=== PATIENT | female | born 1975 | race Caucasian/White ===

== ENCOUNTER → 2017-12-24 11:37 | Outpatient (CLI) | payer OTHER, SELFPAY ==
[2017-12-24 14:05] LABS: HIV - WCH Non-Reactive (Nonreactive)
[2017-12-24 15:27] LABS: Chlamydia Trachomatis by PCR Negative (Negative); Neisserai gonorrhoeae by PCR Negative (Negative); Probe Check PASS; Sample Adequacy Control PASS; Specimen Processing Control PASS
[2017-12-25 04:14] LABS: Rapid Plasmin Reagin (RPR) NONREACTIVE (NONREACTIVE)
[2017-12-25 15:38] LABS: HEPATITIS B SURFACE AG Negative (Negative); Hep C Antibodies <0.1 s/co ratio (0.0-0.9)
== END ==
PROVIDERS: Visit Provider Obstetrics & Gynecology
DX: Z11.3 Encounter for screening for infections with a predominantly sexual mode of transmission (principal)
CPT/HCPCS: 36415; 86592; 86703; 86803; 87340; 87491; 87591

== ENCOUNTER → 2018-03-29 15:34 | Outpatient (CLI) | payer OTHER, SELFPAY ==
[2017-07-03 14:14] VITALS: BMI 26.1
[2018-04-01 10:09] LABS: HPV HC, High Risk Negative (Negative)
== END ==
PROVIDERS: Visit Provider Obstetrics & Gynecology
DX: Z12.4 Encounter for screening for malignant neoplasm of cervix (principal)
CPT/HCPCS: 87624; 88175; G0145

== ENCOUNTER → 2018-04-01 13:49 | Outpatient (CLI) | payer OTHER, SELFPAY ==
--- NOTE | 2018-04-01 13:53 | BI_ITS ---
MAMMOGRAPHY - BILATERAL SCREENING REASON FOR EXAM: Female, 42 years old. Routine annual screening examination. PERTINENT HISTORY: Grandmother with breast cancer. Aunt with breast cancer. TECHNIQUE: Digital bilateral breast danielle (3D mammographic acquisition) in the CC and MLO projections. 2-D mediolateral oblique (MLO) and craniocaudad (CC) views of both breasts were obtained. CAD: Full Field Digital Mammography with Computer Added Detection was performed. COMPARISON: Comparison is made with prior study dated March 19, 2017 and March 18, 2016. FINDINGS: Breast Composition: The breasts are heterogeneously dense, which may obscure small masses. There are no dominant masses or suspicious calcifications. No other significant abnormalities are identified. There has been no significant change since the prior study. BI/SCREENING MAMM (CAD), BILAT IMPRESSION: Stable bilateral screening mammogram. Yearly follow-up mammogram recommended. (A) ASSESSMENT CATEGORY: BIRADS Category 1: Negative. A letter regarding these results will be sent to the patient by the facility within 30 days. Approximately 10% of breast cancers are not detected by mammography. A normal mammogram should not delay biopsy of a clinically suspicious abnormality. [id number] Electronically Signed: Loyd Carrero MD at 14:52 EST , Service support ,
== END ==
PROVIDERS: Referring Provider Obstetrics & Gynecology; Visit Provider Obstetrics & Gynecology
DX: Z12.31 Encounter for screening mammogram for malignant neoplasm of breast (principal)
CPT/HCPCS: 77063; 77067

== ENCOUNTER → 2018-05-24 10:38 | Outpatient (CLI) | payer OTHER, SELFPAY ==
--- NOTE | 2018-05-24 10:57 | CT_ITS ---
STUDY: CT ABDOMEN AND PELVIS WITH CONTRAST REASON FOR EXAM: Female, 43 years old. Endometriosis. Excessive uterine bleeding. RADIATION DOSAGE (If Supplied By Facility): CTDIvol = ( 9.22 ) mGy, DLP = ( 580.28 ) mGycm TECHNIQUE: Transaxial images were obtained from the dome of the diaphragm to the symphysis pubis with oral contrast. Isovue 300 100 IV/Oral was administered. Sagittal and coronal images were reconstructed. Individualized dose optimization techniques were used for this CT. COMPARISON: Comparison is made with prior study dated April 24, 2010. FINDINGS: The visualized lung bases are unremarkable. The visualized portions of the heart are within normal limits. Normal liver. Normal gallbladder and extrahepatic biliary system. Normal spleen. Normal pancreas. Normal bilateral adrenal glands. Normal right kidney. Normal left kidney. Normal visualized stomach. Normal small intestine. Normal colon. The appendix is visualized and appears normal. Normal abdominal aorta. Normal inferior vena cava. Normal retroperitoneum. Normal urinary bladder. There is a 3.4 cm by 2.2 cm cyst in the right ovary. Inhomogeneous appearance of the uterus with endometrial thickening. There is prominence of the cervical portion of the uterus suggestive of fibroid change. Normal abdominal wall. There are mild degenerative changes of the visualized lumbar spine. CT/Abdomen/Pelvis WITH Contrast IMPRESSION: Fibroid uterus with thickening of the endometrium. Right ovarian cyst. Electronically Signed: Loyd Carrero, at 13:41 EDT , Service support ,
== END ==
PROVIDERS: Family Provider Obstetrics & Gynecology; PCP Obstetrics & Gynecology; Referring Provider Obstetrics & Gynecology; Visit Provider Obstetrics & Gynecology
DX: N80.3 Endometriosis of pelvic peritoneum (principal); N93.9 Abnormal uterine and vaginal bleeding, unspecified; R10.84 Generalized abdominal pain
CPT/HCPCS: 74177; Q9967

== ENCOUNTER 2018-06-09 07:31 | Observation (INO) | payer OTHER, SELFPAY ==
--- NOTE | 2018-06-01 13:21 | PCM.HPOB.BLA ---
History and Physical Date of Admission: 06/09/18 Surgical History and Physical Date: 06/01/2018 Name: YESSICA PAIZ Age: 43 Date of : 1975 Yessica Paiz, a 43 year old female 0 0 1 0 0, presents for [facility] on June 09, 2018 at 7:30. 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 In the past few months, low back and low pelvic pain has returned in conjunction with spotting. She is wondering if Endometriosis is again, causing this pain? Fulguration EM implants when Dannielle done. Hx HSV, no outbreaks in the past year. On daily suppression therapy w/Valtrex. Continues Wellbutrin and Xanax for Anxiety/Depression. She would like RF's all 3 meds for this year. Nonsmoker. Not sexually active. Hx Lap/BS. sanjeev Yessica is here to discuss having a Hysterectomy for Pelvic Pain and Menorrhagia. Aygestin given 04/27/18 for Menorrhagia. This helped. Heavy bleeding onset again 05/18, still bleeding changing large tampon q hr to hr and half. Very painful. Taking Ketorolac 10 mg every 8 hrs and sooner sometimes, so she can function on her job. sanjeev AUB which began Apr 2016. Yessica claims it started sudden and has been present 1-2 months. It occurs intermittantly. It is located in the vaginal. Yessica characterizes it to be to the back. Severity is Worsening cramping It is aggravated by none. It is relieved by none. Associated signs and symptoms are cramping. Additional comments are: Patient had ablation done 01/23/2016. MEDICATIONS HISTORY: Current medications prescribed by our practice are: 1. Aygestin 5 mg tablet, one tab PO three times daily 2. ketorolac 10 mg tablet, one tab PO q 8 hours as directed 3. Valtrex 500 mg tablet, one tab PO daily 4. Wellbutrin XL 150 mg 24 hr tablet, extended release, One tablet by mouth twice daily 5. Xanax 0.5 mg tablet, one tablet q 8 hours prn Patient is also takin. cyclobenzaprine 10 mg tablet, One tablet by mouth once daily 2. lisinopril 10 mg-hydrochlorothiazide 12.5 mg tablet, One tablet by mouth once daily ALLERGIES: NKDA Infections - Chicken pox and Genital Herpes Illnesses - Endometriosis Accidents - no injuries of consequence Hospitalizations - see surgery Depression / Anxiety; Review of Systems: GENERAL - Denies fever, or chills SKIN - Denies skin changes EYES - Denies visual changes EARS - Denies difficulty hearing NOSE - Denies nasal congestion or bleeding MOUTH - Denies sore throat or difficulty swallowing NECK - Denies pain or swelling RESPIRATORY - Denies shortness of breath or wheezing CARDIOVASCULAR - Denies palpitations or chest pain GASTROINTESTINAL - Denies nausea, vomiting, diarrhea, constipation GENITOURINARY - pelvic pain, menorrhagia MUSCULOSKELETAL - Denies joint or muscle pain NEUROLOGICAL - Denies localized numbness or weakness PSYCHIATRIC - Anxiety see meds ENDOCRINE - Denies heat or cold intolerance, weight loss or gain HEMATO-IMMUNOLOGIC - Denies excesive bleeding with cuts SOCIAL HISTORY: Alcohol Use - socially Smoking - denies use Diet - balanced Diet Lifestyle - Exercise - regular Seat Belt Use - always Employer - [employer] [place] [employer] Illicit Drug Use - denies use of street drugs Sexual Activity - - Hours Worked - 36 Control - Dannielle 01/23/16 FAMILY HISTORY: Maternal Grandmother: Breast cancer. Paternal Grandmother: Heart Disease. Paternal Grandfather: Heart Disease. Maternal Aunt: Breast Ca. MENSTRUAL HISTORY: LMP Known?- Dannielle, 01/23/16Amount/Duration - excess amount, Regularity - Irregular, Frequency - variable days, LMP - 05/18/18, Age Onset Menarche - 14 PAST PREGNANCIES: Total Pregnancies - 1; Full Term Pregnancies - 0; Premature - 0; Abortions, Induced - 0; Abortions, Spontaneous - 1; Ectopics - 0; Multiple Births - 0; Living Children - 0 SURGICAL HISTORY: 1. 08/04/2013 cervical fusion ; - 2. tonsilectomy 2001 ; - 3. 01/23/2016 Lap Bilateral salpingectomy, fulguration of endometriosis, hysteroscopy, D and C, Dannielle ablation ; Dr Joseph Madden - PHYSICAL EXAM BP- 130/78 Sitting, Right arm, regular cuff Weight- 146.37942 lbs Height- 65 inch BMI:24.45 CONSTITUTIONAL - NAD, well nourished, and well developed SKIN - No rash, lesions, or ulcers HEENT - Normocephalic, PERRLA, EOMI NECK - No nodes, no nuchal rigidity and thyroid normal size and texture LUNGS - CTA x2 without wheezes, crackles or rales CARDIAC - Regular rate and rhythm without rubs, murmurs, or gallops ABDOMEN - Without hepatosplenomegaly, distention, masses, rebound, or guarding; normal bowel sounds; no hernias EXTREMITIES - No edema or calf tenderness NEUROLOGICAL - Cranial nerves II-XII grossly intact PSYCHIATRIC - A and O to time, place, person, mood and affect External Genitial Vagina - non-tender without lesions Urethra/Urethral Meatus - non-tender Bladder - non-tender Vagina - vaginal armendariz are pink and moist without loss of rugae and no evidence of atropy Cervix - without cervical motion tenderness and has normal size and features without evident lesions Uterus - 5-6 cm in size, mobile and nontender Adnexa - tender right adnexal area ASSESSMENT/PLAN: 1. Endometriosis Of Pelvic Peritoneum Having increasing pain and now with some heavy painful periods despite endometrial ablation Options presented and given prior ablation would recommend LAVH US today by me with relatively thin endometrial lining at 5mm and right ovarian cyst Procedures, risks, and expectations discussed Followup for preoperative appointment The visit was approximately 30 minutes in length with most of the time spent in discussion and counseling.
--- NOTE | 2018-06-01 13:25 | HP.PCM_ITS ---
History and Physical Date of Admission: 06/09/18 Surgical History and Physical Date: 06/01/2018 Name: YESSICA PAIZ Age: 43 Date of : 1975 Yessica Paiz, a 43 year old female 0 0 1 0 0, presents for [facility] on June 09, 2018 at 7:30. 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 In the past few months, low back and low pelvic pain has returned in conjunction with spotting. She is wondering if Endometriosis is again, causing this pain? Fulguration EM implants when Dannielle done. Hx HSV, no outbreaks in the past year. On daily suppression therapy w/Valtrex. Continues Wellbutrin and Xanax for Anxiety/Depression. She would like RF's all 3 meds for this year. Nonsmoker. Not sexually active. Hx Lap/BS. sanjeev Yessica is here to discuss having a Hysterectomy for Pelvic Pain and Menorrhagia. Aygestin given 04/27/18 for Menorrhagia. This helped. Heavy bleeding onset again 05/18, still bleeding changing large tampon q hr to hr and half. Very painful. Taking Ketorolac 10 mg every 8 hrs and sooner sometimes, so she can function on her job. sanjeev AUB which began Apr 2016. Yessica claims it started sudden and has been present 1- 2 months. It occurs intermittantly. It is located in the vaginal. Yessica characterizes it to be to the back. Severity is Worsening cramping It is aggravated by none. It is relieved by none. Associated signs and symptoms are cramping. Additional comments are: Patient had ablation done 01/23/2016. MEDICATIONS HISTORY: Current medications prescribed by our practice are: 1. Aygestin 5 mg tablet, one tab PO three times daily 2. ketorolac 10 mg tablet, one tab PO q 8 hours as directed 3. Valtrex 500 mg tablet, one tab PO daily 4. Wellbutrin XL 150 mg 24 hr tablet, extended release, One tablet by mouth twice daily 5. Xanax 0.5 mg tablet, one tablet q 8 hours prn Patient is also takin. cyclobenzaprine 10 mg tablet, One tablet by mouth once daily 2. lisinopril 10 mg-hydrochlorothiazide 12.5 mg tablet, One tablet by mouth once daily ALLERGIES: NKDA Infections - Chicken pox and Genital Herpes Illnesses - Endometriosis Accidents - no injuries of consequence Hospitalizations - see surgery Depression / Anxiety; Review of Systems: GENERAL - Denies fever, or chills SKIN - Denies skin changes EYES - Denies visual changes EARS - Denies difficulty hearing NOSE - Denies nasal congestion or bleeding MOUTH - Denies sore throat or difficulty swallowing NECK - Denies pain or swelling RESPIRATORY - Denies shortness of breath or wheezing CARDIOVASCULAR - Denies palpitations or chest pain GASTROINTESTINAL - Denies nausea, vomiting, diarrhea, constipation GENITOURINARY - pelvic pain, menorrhagia MUSCULOSKELETAL - Denies joint or muscle pain NEUROLOGICAL - Denies localized numbness or weakness PSYCHIATRIC - Anxiety see meds ENDOCRINE - Denies heat or cold intolerance, weight loss or gain HEMATO-IMMUNOLOGIC - Denies excesive bleeding with cuts SOCIAL HISTORY: Alcohol Use - socially Smoking - denies use Diet - balanced Diet Lifestyle - Exercise - regular Seat Belt Use - always Employer - [employer] Job Description - [employer] Illicit Drug Use - denies use of street drugs Sexual Activity - - Hours Worked - 36 Control - Dannielle 01/23/16 FAMILY HISTORY: Maternal Grandmother: Breast cancer. Paternal Grandmother: Heart Disease. Paternal Grandfather: Heart Disease. Maternal Aunt: Breast Ca. MENSTRUAL HISTORY: LMP Known?- Dannielle, 01/23/16Amount/Duration - excess amount, Regularity - Irregular, Frequency - variable days, LMP - 05/18/18, Age Onset Menarche - 14 PAST PREGNANCIES: Total Pregnancies - 1; Full Term Pregnancies - 0; Premature - 0; Abortions, Induced - 0; Abortions, Spontaneous - 1; Ectopics - 0; Multiple Births - 0; Living Children - 0 SURGICAL HISTORY: 1. 08/04/2013 cervical fusion ; - 2. tonsilectomy 2001 ; - 3. 01/23/2016 Lap Bilateral salpingectomy, fulguration of endometriosis, hysteroscopy, D and C, Dannielle ablation ; Dr Joseph Madden - PHYSICAL EXAM BP- 130/78 Sitting, Right arm, regular cuff Weight- 146.14555 lbs Height- 65 inch BMI:24.45 CONSTITUTIONAL - NAD, well nourished, and well developed SKIN - No rash, lesions, or ulcers HEENT - Normocephalic, PERRLA, EOMI NECK - No nodes, no nuchal rigidity and thyroid normal size and texture LUNGS - CTA x2 without wheezes, crackles or rales CARDIAC - Regular rate and rhythm without rubs, murmurs, or gallops ABDOMEN - Without hepatosplenomegaly, distention, masses, rebound, or guarding; normal bowel sounds; no hernias EXTREMITIES - No edema or calf tenderness NEUROLOGICAL - Cranial nerves II-XII grossly intact PSYCHIATRIC - A and O to time, place, person, mood and affect External Genitial Vagina - non-tender without lesions Urethra/Urethral Meatus - non-tender Bladder - non-tender Vagina - vaginal armendariz are pink and moist without loss of rugae and no evidence of atropy Cervix - without cervical motion tenderness and has normal size and features without evident lesions Uterus - 5-6 cm in size, mobile and nontender Adnexa - tender right adnexal area ASSESSMENT/PLAN: 1. Endometriosis Of Pelvic Peritoneum Having increasing pain and now with some heavy painful periods despite endometrial ablation Options presented and given prior ablation would recommend LAVH US today by me with relatively thin endometrial lining at 5mm and right ovarian cyst Procedures, risks, and expectations discussed Followup for preoperative appointment The visit was approximately 30 minutes in length with most of the time spent in discussion and counseling.
[2018-06-03 12:19] LABS: Hematocrit 40.5 % (37-47); Hemoglobin 13.5 g/dl (12.0-15.0); Mean Corp Hgb Conc 33.3 g/gl (32-36); Mean Corpuscular Hgb 33.3 pg (27.0-32.0); Mean Platelet Vol. 9.3 fl (6.2-12.0); Platelet Count 410 K/mm3 (150-450); RBC Distribution Width CV 12.7 % (11.6-14.6); RBC Distribution Width SD 45.2 fl (35.1-43.9); Red Blood Count 4.05 M/mm3 (4.2-5.4); White Blood Count 8.3 K/mm3 (4.4-11.0)
[2018-06-03 12:30] LABS: Scan Indicated on CBC? Y/N NO
[2018-06-03 12:33] LABS: Prothrombin Time (Protime)PT. 13.1 SECONDS (11.7-14.9)
[2018-06-03 12:34] LABS: Partial Thromboplast Time 24.1 Seconds (24.1-36.2)
[2018-06-03 12:40] LABS: Pregnancy, Serum, hCG Quali. NEGATIVE Negative (0-9 Nonpreg)
[2018-06-09] VITALS (15 sets, daily range): BP systolic 117–138; BP diastolic 73–103; PULSE 71–90; RESP 16–18; TEMP 36.6–37.3; O2SAT 96–100; BMI 24.3; BMI 24.4
[2018-06-09 05:58] LABS: Internal QC Validated? YES +Cl - CLEAR BKGD; Pregnancy, Urine Negative Negative
--- NOTE | 2018-06-09 07:30 | HYST_PTH ---
PATIENT: MARINA PAIZ LOC: [facility]3 U#:[id number] AGE/SX: 43/F ROOM: MS313 RE06/09/[address]: Dr. Joseph Madden MD : 1975 BED: 1 DIS: 06/10/2018 SPEC #: [id number] RECD: 06/09/18 11:49 STATUS: CORY REQ #: [id number] JOSEP: 06/09/18 07:[address]: Joseph Madden DEPT: SURGICAL PATHOLOGY RECD BY: Eladio Carlson ENTERED: 06/09/18 13:30 SP TYPE: HYSTERECT OTHR DR: Dr. Lucia Muir DO Tissues: Uterus, NOS Procedures: Surgery Specimen Level V HEADER OPERATION: Hysterectomy, lap-assisted vaginal, poss. right ovarian cystectomy PRE-OP DIAGNOSIS: Endometriosis of pelvic peritoneum TISSUE SUBMITTED: Uterus MICROSCOPIC DIAGNOSIS Uterus, vaginal hysterectomy: Cervix - chronic inflammation and squamous metaplasia. Endometrium - proliferative endometrium. Myometrium - adenomyosis. ROD:jose 06/10/18 MICROSCOPIC DESCRIPTION Slides are reviewed. GROSS DESCRIPTION Received in fixative is one container labeled with the patient's name and designated uterus. The specimen consists of a hysterectomy specimen consisting of uterus with cervix which weighs 109 gm and measures 9 x 7 x 4 cm. The serosal surface is focally ragged. The ectocervical mucosa is unremarkable. The external os is oval and patulous in contour. The endocervical canal measures 3 cm in length and the endocervical mucosa is jackson, glistening and unremarkable. The endometrial cavity is partially obliterated in the proximal portion and measures 4 cm in length and 0.5 cm in width. The endometrium is jackson, glistening without any mass lesion and measures <0.1 cm in thickness. Sections of the uterine wall reveal a few ill-defined nodular masses mostly in the posterior uterine wall. The anterior uterine wall measures 1.5 cm in thickness and the posterior uterine wall measures up to 2.5 cm in thickness. Folder Machine sections are submitted in eight cassettes as follows: 1 - anterior cervix, 2 - posterior cervix, 3 & 4 - anterior uterine wall, 5-8 - posterior uterine wall including ill-defined nodular masses. / ROD:jose 06/09/18 TC: 5 CPT: 61181
--- NOTE | 2018-06-09 07:39 | DCINST_ITS ---
Discharge Diet: No Restrictions Discharge Activity: Return to Normal Activity, May not drive while taking narcotic pain medications., May Shower Return to work on:: 07/12/18 May resume sexual activity in: 6 weeks Call your doctor if your incision/area has: Continuous Slow Oozing, Sudden Increased Bleeding, Increased Pain/ Swelling, Increased Redness, Foul Smelling Discharge, Swelling at the incision site Call your doctor if you observe: Fever of 101 or Higher, Inability to urinate, Inability to have a bowel movement, Using more than one pad per hour, Shortness of breath, Chest pain, Calf discomfort, Uncontrolled pain Remove Dressing in (days):: 1 Cleanse incision/area with: Soap & Water Allergies/Adverse Reactions: Allergies No Known Allergies Allergy (Verified 06/09/18 06:17) Medications to take at Discharge ALPRAZolam [Xanax] 0.5 mg PO PRN PRN 11/23/15 Cyclobenzaprine [Flexeril] 10 mg PO PRN PRN 11/23/15 Valacyclovir HCl [Valtrex] 500 mg PO DAILY 11/23/15 buPROPion SR [Wellbutrin SR (150mg tablets)] 150 mg PO BID 11/23/15 lisinopril 20 mg-hydrochlorothiazide 25 mg tablet 1 tab PO QDAY #30 tab 07/10/17 amlodipine 5 mg tablet 5 mg PO DAILY #30 tab 06/07/18 Ibuprofen 600 mg PO 4X/DAY #30 tab 06/09/18 Oxycodone [Oxyir] 5 - 10 mg PO Q4H PRN PRN 7 Days #20 tab 06/09/18 The following prescriptions were given: Oxycodone [Oxyir] 5 - 10 mg PO Q4H PRN PRN 7 Days #20 tab PRN Reason: Mod-Severe Pain () Ibuprofen 600 mg PO 4X/DAY #30 tab Primary Care Physician: Lucia Muir DO [Primary Care Provider] - Test Results: Test results from this visit will be discussed in further detail at your follow- up appointment, if applicable. Please Follow Up With: Joseph Madden MD When: one week Proposed Discharge Date: 06/10/18
--- NOTE | 2018-06-09 07:46 | OP.PCM_ITS ---
Report of Operation Date of Procedure: 06/09/18 Pre-Operative Diagnosis: Menorrhagia, irregular bleeding after endometrial ablation Post-Operative Diagnosis: Same Surgery/Procedure Performed:: MICHELLE Description of Surgical Findings:: Normal appearing uterus, cervix, and ovaries. Left ovary scarred to left side of uterus. Fallopian tubes surgically absent. Endometriotic implants noted over dome of bladder, right and left uterosacral ligaments. rectal peritoneum, and right round ligament. high school guidance counselor: Nadia Felix Type of Anesthesia:: General Anesthesiologist: Damion Mcmanus Special Medications: none Specimen's removed: Uterus and cervix Drains: jj Estimated Blood Loss (mL): 25cc Fluids Replaced: 1000cc LR Description of Procedure: Yessica was taken to the OR with IV running. She was given two grams of Cefotetan for surgical prophylaxis. General anesthesia was introduced without complication. She was then prepped and draped in the dorsal lithotomy position. A jj catheter was placed. A weighted speculum was placed in the posterior vagina the cervix identified and grasped with a single toothed tenaculum. A uterine manipulator was then placed. The weighted speculum was removed. Attention was then directed to the abdomen. A 5 mm vertical incision was made in the lower base of the umbilicus. The underlying subcutaneous tissue was then dissected bluntly with a Lisa clamp. The abdominal wall was then elevated and a Veress needle was then placed through the umbilical defect in the abdominal cavity. The abdomen was then inflated with CO2 gas to a pressure of 15 Torr. The Veress needle was then removed. A 5 mm trocar and sleeve was then placed through the umbilical defect. The trocar was removed and replaced with the laparoscope. Findings were as above. Two additional 5mm ports were placed each about 4 cm below the level of the umbilicus and lateral to the inferior epigastric vessels. Hemostasis was excellent after port placement. A thorough survey of the pelvis and abdomen was then performed. Using the Ligasure device the left round ligament was cauterized and cut close to the uterus. The left uteroovarian ligament was cauterized and cut. The left parauterine tissue was then dissected down to the level of the cervix. The anterior and posterior leaves of the Broad ligament were and were dissected down to the cervix. A Bladder flap was then created near the uterocervical junction anteriorly. The left uterine artery was then cauterized and cut. The paracervical tissue on the left was dissected down to the level of the uterosacral ligament. The right side was dissected to the level of the uterosacral ligament in a similar fashion to the left. Hemostasis was excellent. The gas was evaluated from the abdomen and attention was then directed to the vagina. The uterine manipulator was removed. The cervix grasped with a single toothed tenaculum. The vaginal mucosa at the cervicovaginal junction was then injected superficially with a dilute pitressin solution. Using the Bovie cautery the cervicvaginal epithelium was cut in a circumfrential manner. The vaginal mucosa was then pushed superiorly. The cervicovesical peritoneum was then entered sharply with the Peter scissors. The rectovaginal peritoneum was then entered sharply with the Torres scissors. A long weighted speculum was placed into the posterior defect. The uterosacral ligaments on both sides were then grasped with Fredis clamps cut and suture ligated. These sutures were held for incorporation into the vaginal cuff. The remaining pericervical tissue was then grasped on each side with the Fredis clamps cut and suture ligated. The specimen was then removed. The pedicles were inspected and found to be hemostatic. The vaginal cuff was then closed in the midline from anterior to posterior with a single interrupted suture of 0- Vicryl. The cuff angles were closed with the same suture material with incorporation of the respective sides uterosacral ligament ties. The remainder of the cuff was closed with interrupted and figure of eight sutures of 0-Vicryl. All instruments were then removed from the vagina. Attention was redirected to the abdomen. The abdomen was reinflated and the laparoscope replaced. All pelvic pedicles appeared hemostatic. The areas of endometriosis that were not previously removed with the specimen were fulgarated. The lateral laparoscopic ports were then removed with hemostasis assured. Gas was then evacuated from the abdomen and the umbilical port removed. The port site incisions were closed with subcuticular sutures of 4-0 Monocryl. Sponge, needle, instrument and lap counts were correct. She was reversed from anesthesia and taken to the recovery room in stable condition. Grafts/Implants Used: none - Complications none - Admit VTE Documentation VTE Present on Admission: No VTE Mechan Device Prophylaxis: SCD's VTE Pharm Prophylaxis ordered?: No
[2018-06-09] MEDS: Vasopressin 20 UNITS/ML Vial (08:48)
[2018-06-09] MEDS: Bupivacaine 0.25% 30 ML Vial (09:13)
[2018-06-09] MEDS: Ketorolac 30 MG/ML Syringe IV ×3 (10:19→23:18)
[2018-06-09] MEDS: Lactated Ringers 1,000 ML 125 ML IV ×2 (11:45→18:18)
[2018-06-09] MEDS: oxyCODONE 5 MG Tablet PO ×2 (12:59→20:08)
[2018-06-09] MEDS: Cefazolin 1 GM/50 ML BAG IV ×2 (14:19→23:12)
[2018-06-09] MEDS: buPROPion (SR) 150 MG Tablet.SA PO ×2 (14:19→23:12)
[2018-06-09] MEDS: amLODIPine 5 MG Tablet PO (14:19)
[2018-06-09] MEDS: HYDROmorphone 1 MG/ML Syringe IV (14:27)
[2018-06-10] MEDS: oxyCODONE 5 MG Tablet PO ×2 (01:44→08:23)
[2018-06-10 01:49] VITALS: BP 120/75; PULSE 79; RESP 18; TEMP 36.7; O2SAT 97
[2018-06-10] MEDS: HYDROmorphone 1 MG/ML Syringe IV (04:17)
[2018-06-10 05:36] LABS: Hemoglobin 12.6 g/dl (12.0-15.0); Mean Corp Hgb Conc 33.2 g/gl (32-36); Mean Corpuscular Hgb 33.7 pg (27.0-32.0); Mean Corpuscular Volume 101.6 fL (81-99); Platelet Count 306 K/mm3 (150-450); RBC Distribution Width CV 12.2 % (11.6-14.6); RBC Distribution Width SD 44.6 fl (35.1-43.9); Red Blood Count 3.74 M/mm3 (4.2-5.4); White Blood Count 9.8 K/mm3 (4.4-11.0)
[2018-06-10 05:38] LABS: Scan Indicated on CBC? Y/N NO
[2018-06-10] MEDS: Ketorolac 30 MG/ML Syringe IV (06:24)
--- NOTE | 2018-06-10 08:00 | PCM.PROGNOTE ---
Subjective: Some abdominal soreness but doing well with toradol mostly. Tolerating PO. Has not voided yet. Objective: Afeb VSS Hgb stable. Urine output good. - Physical Exam General: Alert, Oriented x3, Cooperative, No apparent distress Lungs: Clear to auscultation, Normal air movement Cardiovascular: Regular rate, Regular Rhythm Abdomen: Soft, Non Tender, Non-Distended, - - Incision dressing dry, no erythema Extremities: No edema Skin: No rashes Neurological: Neuro grossly intact Psych/Mental Status: Normal Affect Comment: Scant vaginal bleeding Vital Signs Temp Pulse Resp BP Pulse Ox 98.0 F 79 18 120/75 97 06/10/18 01:49 06/10/18 01:49 06/10/18 01:49 06/10/18 01:49 06/10/18 01:49 Oxygen Delivery Method Room Air Weight: 146 lb 9.718 oz Body Mass Index (BMI) 24.4 Intake and Output for Last 24 Hours 06/08/18 06/09/18 06/10/18 23:59 23:59 23:59 Intake Total 1458 / 1458 2950 / 2950 Output Total 900 / 900 4000 / 4000 Balance 558 / 558 -1050 / -1050 Laboratory Tests Past 24 Hrs 06/10/18 05:20 WBC 9.8 RBC 3.74 L Hgb 12.6 Hct 38.0 MCV 101.6 H MCH 33.7 H MCHC 33.2 RDW 12.2 RDW Differential 44.6 H Plt Count 306 MPV 9.0 Medical Necessity - Tobacco Use Smoking Status: Never smoker Assessment/Plan All Active Problems (Last Reviewed 07/03/17 @ 14:29 by Morgan Cadet MD) Request for sterilization (Acute) Doing well on POD#1 s/p LAVH. Cleared for discharge home today. Discharge instructions and warnings given.
--- NOTE | 2018-06-10 08:02 | PCM.DC.SUM ---
Discharge Date and Diagnosis Date of Admission: 06/09/18 Date of Discharge: 06/10/18 - Primary Discharge Diagnosis S/P LAVH - Secondary Discharge Diagnosis Chronic Problems (Last Reviewed 07/03/17 @ 14:29 by Morgan Cadet MD) GERD (gastroesophageal reflux disease) (Chronic) Hypertension (Chronic) Dysmenorrhea (Chronic) Menorrhagia with regular cycle (Chronic) Hospital Course and Treatment Operations: - - LAVH, fulgaration of endometriosis Summary of Care Provided: The patient is a 43 year old F [admitted for LAVH which was performed without complication. Post operative course unremarkable. Discharged home on po day 1.] - Physical Exam Vital Signs Temp Pulse Resp BP Pulse Ox 98.0 F 79 18 120/75 97 06/10/18 01:49 06/10/18 01:49 06/10/18 01:49 06/10/18 01:49 06/10/18 01:49 Oxygen Delivery Method Room Air Weight: 146 lb 9.718 oz Body Mass Index (BMI) 24.4 Intake and Output for Last 24 Hours 06/08/18 06/09/18 06/10/18 23:59 23:59 23:59 Intake Total 1458 / 1458 2950 / 2950 Output Total 900 / 900 4000 / 4000 Balance 558 / 558 -1050 / -1050 Laboratory Tests Past 24 Hrs 06/10/18 05:20 WBC 9.8 RBC 3.74 L Hgb 12.6 Hct 38.0 MCV 101.6 H MCH 33.7 H MCHC 33.2 RDW 12.2 RDW Differential 44.6 H Plt Count 306 MPV 9.0 Discharge Diet: No Restrictions Discharge Activity: Return to Normal Activity, May not drive while taking narcotic pain medications., May Shower Return to work on:: 07/12/18 May shower in (days): 1 May resume sexual activity in: 6 weeks Call your doctor if your incision/area has: Continuous Slow Oozing, Sudden Increased Bleeding, Increased Pain/ Swelling, Increased Redness, Foul Smelling Discharge, Swelling at the incision site Call your doctor if you observe: Fever of 101 or Higher, Inability to urinate, Inability to have a bowel movement, Using more than one pad per hour, Shortness of breath, Chest pain, Calf discomfort, Uncontrolled pain Remove Dressing in (days):: 1 Cleanse incision/area with: Soap & Water Home Medications: Medications to take at Discharge ALPRAZolam [Xanax] 0.5 mg PO PRN PRN 11/23/15 Cyclobenzaprine [Flexeril] 10 mg PO PRN PRN 11/23/15 Valacyclovir HCl [Valtrex] 500 mg PO DAILY 11/23/15 buPROPion SR [Wellbutrin SR (150mg tablets)] 150 mg PO BID 11/23/15 lisinopril 20 mg-hydrochlorothiazide 25 mg tablet 1 tab PO QDAY #30 tab 07/10/17 amlodipine 5 mg tablet 5 mg PO DAILY #30 tab 06/07/18 Ibuprofen 600 mg PO 4X/DAY #30 tab 06/09/18 Oxycodone [Oxyir] 5 - 10 mg PO Q4H PRN PRN 7 Days #20 tab 06/09/18 Following Prescrptions Were Given to Patient: Oxycodone [Oxyir] 5 - 10 mg PO Q4H PRN PRN 7 Days #20 tab PRN Reason: Mod-Severe Pain () Ibuprofen 600 mg PO 4X/DAY #30 tab Primary Care Physician: Lucia Muir DO [Primary Care Provider] - Please Follow Up With: Joseph Madden MD When: one week Disposition: Home Minutes spent on discharge:: 15 Patient Condition:: Good Medical Necessity - Tobacco Use Smoking Status: Never smoker Meaningful Use Info Meaningful Use Diagnoses (Choose all that apply): None applicable
[2018-06-10 08:12] VITALS: BP 126/83; PULSE 73; RESP 18; TEMP 37.2; O2SAT 98
== END 2018-06-10 08:43 | disposition home or self-care (01) ==
LOC: MS3 09:28
PROVIDERS: Anesthesiology; Admitting Provider Obstetrics & Gynecology; Family Provider Family Medicine; PCP Family Medicine; Referring Provider Obstetrics & Gynecology; Visit Provider Obstetrics & Gynecology
PROC: 0UT9FZZ Resection of Uterus, Via Natural or Artificial Opening With Percutaneous Endoscopic Assistance (ICD-10-PCS; CPT 58550; principal; 2018-06-09 07:05)
DX: N80.3 Endometriosis of pelvic peritoneum (principal); B00.9 Herpesviral infection, unspecified; F41.9 Anxiety disorder, unspecified; F32.9 Major depressive disorder, single episode, unspecified; K21.9 Gastro-esophageal reflux disease without esophagitis; I10 Essential (primary) hypertension; Z79.899 Other long term (current) drug therapy
CPT/HCPCS: 00940; 58550; 36415; 81025; 84703; 85027; 85610; 85730; 86850; 86900; 88307; 96361; 96365; 96366; 96375; 96376; 99218; J7120; G0378; G0379; J2405

== ENCOUNTER → 2018-06-29 | Outpatient (CLI) | payer OTHER, SELFPAY ==
[2018-06-09 12:09] VITALS: BMI 24.4
== END | disposition home or self-care (01) ==
LOC: LABSPEC 13:43
PROVIDERS: Family Provider Family Medicine; PCP Family Medicine; Referring Provider Obstetrics & Gynecology; Visit Provider Obstetrics & Gynecology
DX: R30.0 Dysuria (principal)
CPT/HCPCS: 87086

== ENCOUNTER → 2019-04-07 15:42 | Outpatient (CLI) | payer OTHER, SELFPAY ==
[2018-06-09 12:09] VITALS: BMI 24.4
== END ==
PROVIDERS: PCP Family Medicine; Visit Provider Family Medicine
DX: Z00.00 Encounter for general adult medical examination without abnormal findings (principal)

== ENCOUNTER → 2019-04-07 15:52 | Outpatient (CLI) | payer OTHER, SELFPAY ==
[2018-06-09 12:09] VITALS: BMI 24.4
--- NOTE | 2019-04-07 15:55 | BI_ITS ---
MAMMOGRAPHY - BILATERAL SCREENING 3-D TOMOSYNTHESIS REASON FOR EXAM: Female, 43 years old. Routine screening PERTINENT HISTORY: Grandmother and aunt with breast cancer.. TECHNIQUE: 2-D mammograms and 3-D Tomosynthesis of the breast (s) were performed. CAD was performed. COMPARISON: 04/01/2018 FINDINGS: The breast composition is heterogeneously dense that can obscure small breast masses. Scattered benign calcifications are seen. No dense spiculated masses or suspicious microcalcifications are identified. No architectural distortion is identified. There is no skin thickening or retraction. There has been no significant change since the prior study. BI/SCREEN MAMM (CAD) W/ALLEN BILAT IMPRESSION: No mammographic signs of malignancy. Routine yearly mammograms recommended. ASSESSMENT CATEGORY: BIRADS Category 2: Benign. A letter regarding these results will be sent to the patient by the facility within 30 days. FOLLOW UP RECOMMENDATION: Yearly follow up mammogram recommended. (A) Approximately 10% of breast cancers are not detected by mammography. A normal mammogram should not delay biopsy of a clinically suspicious abnormality. Electronically Signed: Chandana Medrano MD at 12:57 EST , Service support ,
== END ==
LOC: OPBI 15:53
PROVIDERS: PCP Family Medicine; Referring Provider Family Medicine; Visit Provider Family Medicine
DX: Z12.31 Encounter for screening mammogram for malignant neoplasm of breast (principal); Z80.3 Family history of malignant neoplasm of breast
CPT/HCPCS: 77063; 77067

== ENCOUNTER → 2019-10-28 09:22 | Outpatient (CLI) | payer OTHER, SELFPAY ==
[2018-06-09 12:09] VITALS: BMI 24.4
--- NOTE | 2019-10-28 09:25 | RAD_ITS ---
STUDY: X-RAY - RIGHT FOOT CLINICAL: Female, 44 years old. ankle/foot sprain several weeks ago, pain lateral TECHNIQUE: 3 view(s) of the foot. COMPARISON: None. FINDINGS: Normal talus, calcaneus, and tarsal bones. Normal visualized subtalar, talonavicular, calcaneocuboid, tarsal and tarsometatarsal articulations. Well-defined ossific densities are noted medial to the 5th metatarsal head consistent with sesamoid bones. Metatarsal bones are unremarkable. Normal metatarsophalangeal joint of the great toe. Normal tibial and fibular sesamoid bones. Normal interphalangeal joint of the great toe. Normal phalanges of the great toe. Normal second through fifth metatarsophalangeal joints. Normal interphalangeal joints and phalanges of the lesser toes. The soft tissue structures are unremarkable. RAD/Foot min 3 Views IMPRESSION: 1. Negative x-rays of the foot. Electronically Signed: Mercy Crain MD at 22:30 EDT Tel , Service support ,
--- NOTE | 2019-10-28 09:25 | RAD_ITS ---
STUDY: X-RAY - RIGHT ANKLE REASON FOR EXAM: Female, 44 years old. ankle/foot sprain several weeks ago, pain lateral TECHNIQUE: 3 view(s) of the ankle. COMPARISON: None. FINDINGS: Normal visualized distal tibia and fibula. Normal medial and lateral malleoli. Normal tibiotalar articulation and ankle mortise. Normal visualized talus and calcaneus. The visualized subtalar, talonavicular, calcaneocuboid and tarsal articulations are normal. The soft tissue structures are unremarkable. RAD/Ankle min 3 Views IMPRESSION: Normal x-ray examination of the ankle. Electronically Signed: Rosendo Carcamo MD at 16:32 EDT Tel , Service support ,
== END ==
PROVIDERS: PCP Family Medicine; Referring Provider Podiatrist; Visit Provider Podiatrist
DX: S93.401A Sprain of unspecified ligament of right ankle, initial encounter (principal); S93.601A Unspecified sprain of right foot, initial encounter; X58.XXXA Exposure to other specified factors, initial encounter; Y93.9 Activity, unspecified; Y92.9 Unspecified place or not applicable; Y99.9 Unspecified external cause status
CPT/HCPCS: 73610; 73630

== ENCOUNTER → 2020-07-25 14:35 | Outpatient (CLI) | payer OTHER, SELFPAY ==
[2018-06-09 12:09] VITALS: BMI 24.4
--- NOTE | 2020-07-25 14:39 | BI_ITS ---
MAMMOGRAPHY - BILATERAL SCREENING REASON FOR EXAM: Female, 45 years old. Routine annual screening examination. PERTINENT HISTORY: Grandmother with breast cancer. Aunt with breast cancer. TECHNIQUE: Digital bilateral breast allen (3D mammographic acquisition) in the CC and MLO projections. 2-D mediolateral oblique (MLO) and craniocaudad (CC) views of both breasts were obtained. CAD: Full Field Digital Mammography with Computer Added Detection was performed. COMPARISON: Comparison is made with prior study dated 04/07/2019 and 04/01/2018. FINDINGS: Breast Composition: The breasts are heterogeneously dense, which may obscure small masses. There are no dominant masses or suspicious calcifications. No other significant abnormalities are identified. There has been no significant change since the prior study. BI/SCRN MAMM (CAD)W/ALLEN BILAT IMPRESSION: Stable bilateral screening mammogram. Yearly follow-up mammogram recommended. (A) ASSESSMENT CATEGORY: BIRADS Category 1: Negative. A letter regarding these results will be sent to the patient by the facility within 30 days. Approximately 10% of breast cancers are not detected by mammography. A normal mammogram should not delay biopsy of a clinically suspicious abnormality. [id number] Electronically Signed: Loyd Carrero MD at 8:23 EDT , Service support ,
== END ==
PROVIDERS: PCP Family Medicine; Referring Provider Family Medicine; Visit Provider Family Medicine
DX: Z12.31 Encounter for screening mammogram for malignant neoplasm of breast (principal)
CPT/HCPCS: 77063; 77067

== ENCOUNTER → 2020-08-31 10:44 | Outpatient (CLI) | payer OTHER, SELFPAY ==
[2018-06-09 12:09] VITALS: BMI 24.4
--- NOTE | 2020-08-31 10:55 | RAD_ITS ---
STUDY: X-RAY - CERVICAL SPINE REASON FOR EXAM: Female, 45 years old. NECK PAIN TECHNIQUE: 7 view(s) of the cervical spine were obtained including oblique views and flexion and extension views.. COMPARISON: Comparison is made with prior examination dated 08/21/2015. FINDINGS: Normal anterior atlantoaxial articulation. Normal odontoid process. There is straightening of the normal cervical lordosis. 2009, the patient is status post anterior fusion and prosthetic disc placement at the C4-C5 and C5-C6 levels. Marked degree of disc space narrowing with spondylosis at the C6-C7 level as compared to prior study. Normal visualized intervertebral neuroforamina. The soft tissue structures are unremarkable. RAD/Cerv Spine Obl/Flex/Ext Comp IMPRESSION: Status post anterior fusion at the C4-C5 and C5-C6 levels. Marked degree of disc space narrowing and spondylosis at the C6-C7 level. This has progressed as compared to prior study. Electronically Signed: Loyd Carrero MD at 15:06 EDT , Service support ,
== END ==
PROVIDERS: PCP Family Medicine; Referring Provider Family Medicine; Visit Provider Family Medicine
DX: M54.2 Cervicalgia (principal); Z98.1 Arthrodesis status
CPT/HCPCS: 72052

== ENCOUNTER 2020-10-15 07:50 | Day surgery (SDC) | payer OTHER, SELFPAY ==
[2018-06-09 12:09] VITALS: BMI 24.4
[2020-10-15 08:23] VITALS: BP 130/99; PULSE 75; RESP 16; TEMP 36.4; O2SAT 96; BMI 26.9
[2020-10-15] MEDS: Lactated Ringers 1,000 ML 100 ML IV (08:29)
--- NOTE | 2020-10-15 09:05 | RAD_ITS ---
STUDY: X-RAY - CERVICAL SPINE REASON FOR EXAM: Female, 45 years old. CERVICAL EPIDURAL INJECTION TECHNIQUE: 2 view(s) of the cervical spine were obtained intraoperatively. COMPARISON: None FINDINGS: Intraoperative images provided for cervical epidural injection. RAD/Spine 1 View Any Level IMPRESSION: Intraoperative imaging provided for cervical epidural injection. Electronically Signed: Loyd Carrero MD at 15:29 EDT , Service support ,
[2020-10-15] MEDS: MethylPREDNISolone Acetate 80 MG/ML Vial (09:15)
--- NOTE | 2020-10-15 11:23 | OP.PCM_ITS ---
Report of Operation Date of Procedure: 10/15/20 Description of Surgical Findings:: PREOPERATIVE DIAGNOSES: Cervical radiculopathy, cervical degenerative disc disease POSTOPERATIVE DIAGNOSES: Cervical radiculopathy, cervical degenerative disc di sease PROCEDURE PERFORMED: Cervical epidural steroid injection, interlaminar at C7-T1 under fluoroscopic guidance. ANESTHESIA: Local. BLOOD LOSS: Minimal. COMPLICATIONS: None. DESCRIPTION OF PROCEDURE: History and physical of today was reviewed. Risks and benefits of the procedure were explained. The patient understood and agreed to proceed. Informed consent was obtained. IV inserted per routine protocol. The patient was taken to the operating room and placed in the prone position with a pillow positioned underneath the chest. The neck area was prepped and draped in a sterile fashion using iodine x3. Under fluoroscopy guidance on an AP view, the C7-T1 interlaminar space was identified. The skin and subcutaneous tissue was anesthetized with approximately 3 mL of 1% lidocaine using a 25-gauge regular needle. Under direct visualization on fluoroscopy, on AP view, using a 20-gauge 2-1/2-inch Tuohy needle, the needle was advanced via the skin. The tip of the needle was maneuvered and directed towards the interlaminar space at C7- T1. Loss of resistance technique was carried to air. Loss of resistance technique was encountered. Once encountered, after negative aspiration for blood and CSF, a total of 1 mL of contrast was injected to confirm correct placement of the needle as well as cephalocaudal spread of the contrast. Confirmation was obtained on AP as well as lateral view. After repeated negative aspiration and confirmation, a total of 3 mL of preservative-free normal saline and 80 mg of Depo-Medrol was injected easily. The needle was then removed intact. The patient experienced no sign or symptoms of intrathecal or intravascular injection. The patient experienced no paresthesia. The procedure was completed without any apparent difficulty or any complications. The patient appeared to tolerate it well. ASSESSMENT AND PLAN: This is a 45-year-old female with cervical radiculopathy, cervical degenerative disc disease, status post cervical epidural steroid injection interlaminar at C7-T1 under fluoroscopic guidance, patient will continue her current medications, patient will follow in approximately 2 weeks for reevaluation.
== END 2020-10-15 09:58 | disposition home or self-care (01) ==
LOC: SDC 07:50 → AC 07:51
PROVIDERS: PCP Family Medicine; Referring Provider Anesthesiology Pain Medicine; Visit Provider Anesthesiology Pain Medicine
PROC: 3E0S3BZ Introduction of Anesthetic Agent into Epidural Space, Percutaneous Approach (ICD-10-PCS; CPT 62320; principal; 2020-10-15 09:15)
DX: M54.12 Radiculopathy, cervical region (principal); M50.323 Other cervical disc degeneration at C6-C7 level; I10 Essential (primary) hypertension; F32.9 Major depressive disorder, single episode, unspecified; F41.9 Anxiety disorder, unspecified; Z79.899 Other long term (current) drug therapy
CPT/HCPCS: 62321; 64490; 72020; J7120

== ENCOUNTER → 2020-10-30 10:23 | Outpatient (CLI) | payer OTHER, SELFPAY ==
--- NOTE | 2020-10-30 11:07 | RAD_ITS ---
INDICATION: BACK PAIN EXAMINATION/TECHNIQUE: X-RAY - XR Spine Thoracic 2 Views COMPARISON: 08/31/2020 FINDINGS: Preserved vertebral body height. No fracture. No spondylolisthesis. Multilevel degenerative endplate changes visualized with anterior osteophyte formation. Degenerative changes visualized in the intervertebral disc spaces. Anterior internal fixation of the cervical spine is visualized. INCLUDED CHEST/ABDOMEN: No acute abnormalities. RAD/Thoracic Spine 2 Views IMPRESSION: Degenerative bone changes. No evidence of thoracic spinal fracture or spondylolisthesis. Electronically Signed: Tadeo Easley MD at 13:35 EDT Tel , Service support ,
== END ==
PROVIDERS: PCP Family Medicine; Referring Provider Nurse Practitioner Family; Visit Provider Nurse Practitioner Family
DX: M54.6 Pain in thoracic spine (principal)
CPT/HCPCS: 72070

== ENCOUNTER 2020-12-03 07:37 | Day surgery (SDC) | payer OTHER, SELFPAY ==
[2020-12-03 08:28] VITALS: BP 126/95; PULSE 81; RESP 16; TEMP 35.9; O2SAT 100; BMI 27.3
[2020-12-03] MEDS: Lactated Ringers 1,000 ML 100 ML IV (08:31)
--- NOTE | 2020-12-03 09:10 | RAD_ITS ---
INDICATION: FACET INJECTIONS T5-T7, BILAT EXAMINATION/TECHNIQUE: X-RAY - XR Spine Thoracic Min 4 Views Total Fluoroscopic Time: 11.5 seconds. Fluoroscopic Images: 4 Floroscopy Dose: 3.06 mGy COMPARISON: 10/30/2020. FINDINGS: 4 spot floroscopic images were obtained intra-operatively demonstrating needles superimposed over the T5-T7 facet joints. No radiologist was present for the procedure, please refer to operative report for details. RAD/Thoracic Spine Min 4 Views IMPRESSION: Please refer to operative report for details. Electronically Signed: Tadeo Easley MD at 13:40 EDT Tel , Service support ,
[2020-12-03] MEDS: MethylPREDNISolone Acetate 80 MG/ML Vial (09:22)
[2020-12-03] MEDS: Bupivacaine 0.25% 30 ML Vial (09:22)
[2020-12-03] MEDS: Lidocaine 1% (5 ml sdv) 5 ML Vial (09:22)
[2020-12-03 09:31] VITALS: BP 109/93; BP 126/95; PULSE 81; RESP 18; TEMP 36.3; O2SAT 93
[2020-12-03 09:40] VITALS: BP 126/95; BP 130/93; PULSE 79; RESP 16; O2SAT 100
[2020-12-03 09:44] VITALS: BP 123/102; BP 126/95; PULSE 75; RESP 16; O2SAT 98
[2020-12-03 09:46] VITALS: BP 115/89; BP 126/95; PULSE 77; RESP 16; TEMP 36.3; O2SAT 97
[2020-12-03 09:55] VITALS: BP 126/95
--- NOTE | 2020-12-03 15:29 | PCM.OPRPT ---
Report of Operation Date of Procedure: 12/03/20 Description of Surgical Findings:: PREOPERATIVE DIAGNOSIS: Thoracic spondylosis, thoracic degenerative disc disease, thoracic facet arthropathy POSTOPERATIVE DIAGNOSIS: Thoracic spondylosis, thoracic degenerative disc disease, thoracic facet arthropathy PROCEDURE PERFORMED: Bilateral thoracic facet steroid injection, T5, T6, T7. ANESTHESIA: MAC. BLOOD LOSS: Minimal. COMPLICATIONS: None. DESCRIPTION OF PROCEDURE: History and physical of today was reviewed. Risks and benefits of the procedure were explained. The patient understood and agreed to proceed. Informed consent was obtained. IV inserted per routine protocol. The patient was taken to the operating room and placed in the prone position with a pillow positioned underneath the chest. The mid back area was prepped and draped in a sterile fashion using iodine x3. Under fluoroscopy guidance on AP view, the T5 through T7 vertebral bodies were visualized. The skin and subcutaneous tissue was anesthetized with approximately 5 mL of 1% lidocaine using a 25-gauge regular needle. Under direct visualization on fluoroscopy, at approximately 15-degree angle, starting on the left T5 ending on the right T5, passing through the T6 and T7 bilaterally, using a 22-gauge 3-1/2-inch spinal needle, the needle was passed through the skin. The tip of the needle was maneuvered and directed towards the epiphyseal junction of each corresponding vertebra. Once the tip of the needle was at the vicinity of the medial branch and in contact with the bone, the needle was pulled approximately 2 mm off the bone. After negative aspiration for blood or CSF and confirmation on AP as well as oblique view and lateral view, a total of 12 mL of preservative-free 0.25% Marcaine with 80 mg of Depo-Medrol was injected in divided doses between those 6 levels. The needles were then removed intact. The patient experienced no sign or symptoms of intrathecal or intravascular injection. The patient experienced no paresthesia. The procedure was completed without any apparent difficulty or any complications. The patient appeared to tolerate it well. ASSESSMENT AND PLAN: This is a 45-year-old female with thoracic spondylosis, thoracic degenerative disc disease, thoracic facet arthropathy status post bilateral thoracic facet steroid injection T5-T7, patient will continue her current medications, patient will follow in approximately 2 weeks for reevaluation.
== END 2020-12-03 10:00 | disposition home or self-care (01) ==
LOC: SDC 07:38 → AC 07:38
PROVIDERS: PCP Family Medicine; Referring Provider Anesthesiology Pain Medicine; Visit Provider Anesthesiology Pain Medicine
PROC: 3E0R3BZ Introduction of Anesthetic Agent into Spinal Canal, Percutaneous Approach (ICD-10-PCS; CPT 62281; principal; 2020-12-03 09:05)
DX: M47.814 Spondylosis without myelopathy or radiculopathy, thoracic region (principal); M51.34 Other intervertebral disc degeneration, thoracic region; M48.02 Spinal stenosis, cervical region; M96.1 Postlaminectomy syndrome, not elsewhere classified; K21.9 Gastro-esophageal reflux disease without esophagitis; Z79.899 Other long term (current) drug therapy
CPT/HCPCS: 01992; 64491; 64490; 72074; J7120

== ENCOUNTER → 2020-12-17 13:52 | Outpatient (CLI) | payer OTHER, SELFPAY ==
[2020-12-17 14:35] LABS: Ferritin 397 ng/mL (8-252)
== END ==
PROVIDERS: PCP Family Medicine; Referring Provider Family Medicine; Visit Provider Family Medicine
DX: D64.9 Anemia, unspecified (principal); Z83.49 Family history of other endocrine, nutritional and metabolic diseases
CPT/HCPCS: 82728; 84466

== ENCOUNTER → 2020-12-26 07:49 | Outpatient (CLI) | payer OTHER, SELFPAY | LOC: LAB.FUTURE 07:50 → LAB 07:51 | PROVIDERS: PCP Family Medicine; Referring Provider Family Medicine; Visit Provider Family Medicine | DX: R79.89 Other specified abnormal findings of blood chemistry (principal); Z83.49 Family history of other endocrine, nutritional and metabolic diseases ==

== ENCOUNTER → 2021-01-07 13:48 | Outpatient (CLI) | payer OTHER, SELFPAY ==
[2021-01-07 15:30] LABS: Progesterone Level 0.41 ng/mL (See Comment)
[2021-01-07 15:33] LABS: Estradiol 110.5 pg/mL; Free T3 2.7 pg/mL (2.18-3.98); T4 Free Direct 0.76 ng/dL (0.76-1.46); Thyroid Stim Hormone (TSH) 1.26 uIU/mL (0.358-3.74)
== END ==
PROVIDERS: PCP Family Medicine; Referring Provider Family Medicine; Visit Provider Family Medicine
DX: E89.41 Symptomatic postprocedural ovarian failure (principal); R53.83 Other fatigue
CPT/HCPCS: 82670; 84144; 84439; 84443; 84481

== ENCOUNTER 2021-01-14 06:52 | Day surgery (SDC) | payer OTHER, SELFPAY ==
[2021-01-14 08:00] VITALS: BP 137/102; PULSE 85; RESP 18; TEMP 36.2; O2SAT 100; BMI 27.8
[2021-01-14] MEDS: Lactated Ringers 1,000 ML 15 ML IV (08:09)
--- NOTE | 2021-01-14 08:35 | RAD_ITS ---
STUDY: X-RAY - CERVICAL SPINE REASON FOR EXAM: Female, 45 years old. BLOCK,CERVICAL EPIDURAL TECHNIQUE: 1 view(s) of the cervical spine were obtained. COMPARISON: None FINDINGS: Intraoperative imaging provided for cervical epidural. RAD/Spine 1 View Any Level IMPRESSION: Intraoperative imaging provided for cervical epidural. Electronically Signed: Loyd Carrero MD at 10:02 EST , Service support ,
[2021-01-14] MEDS: MethylPREDNISolone Acetate 80 MG/ML Vial (08:41)
[2021-01-14 08:53] VITALS: BP 135/91; BP 137/102; PULSE 80; RESP 16; TEMP 36.6; O2SAT 100
--- NOTE | 2021-01-14 12:52 | OP.PCM_ITS ---
Report of Operation Date of Procedure: 01/14/21 Pre-Operative Diagnosis: Cervical radiculopathy, cervical degenerative disc dis ease, cervical spinal stenosis Post-Operative Diagnosis: Cervical radiculopathy, cervical degenerative disc disease, cervical spinal stenosis Description of Surgical Findings:: PROCEDURE PERFORMED: Cervical epidural steroid injection, interlaminar at C7- T1. ANESTHESIA: Local. BLOOD LOSS: Minimal. COMPLICATIONS: None. DESCRIPTION OF PROCEDURE: History and physical of today was reviewed. Risks and benefits of the procedure were explained. The patient understood and agreed to proceed. Informed consent was obtained. IV inserted per routine protocol. The patient was taken to the operating room and placed in the prone position with a pillow positioned underneath the chest. The neck area was prepped and draped in a sterile fashion using iodine x3. Under fluoroscopy guidance on an AP view, the C7-T1 interlaminar space was identified. The skin and subcutaneous tissue was anesthetized with approximately 3 mL of 1% lidocaine using a 25-gauge regular needle. Under direct visualization on fluoroscopy, on AP view, using a 20-gauge 2-1/2-inch Tuohy needle, the needle was advanced via the skin. The tip of the needle was maneuvered and directed towards the interlaminar space at C7- T1. Loss of resistance technique was carried to air. Loss of resistance technique was encountered. Once encountered, after negative aspiration for blood and CSF, a total of 1 mL of contrast was injected to confirm correct placement of the needle as well as cephalocaudal spread of the contrast. Confirmation was obtained on AP as well as lateral view. After repeated negative aspiration and confirmation, a total of 3 mL of preservative-free normal saline and 80 mg of Depo-Medrol was injected easily. The needle was then removed intact. The patient experienced no sign or symptoms of intrathecal or intravascular injection. The patient experienced no paresthesia. The procedure was completed without any apparent difficulty or any complications. The patient appeared to tolerate it well. ASSESSMENT AND PLAN: This is a 45-year-old female with cervical radiculopathy, cervical degenerative disc disease, cervical spinal stenosis status post cervical epidural steroid injection interlaminar at C7-T1 under fluoroscopic guidance, patient will continue current medications, patient will follow approximately 2 weeks for reevaluation.
== END 2021-01-14 09:05 | disposition home or self-care (01) ==
LOC: SDC 06:53 → AC 06:54
PROVIDERS: PCP Family Medicine; Referring Provider Anesthesiology Pain Medicine; Visit Provider Anesthesiology Pain Medicine
PROC: 3E0S3BZ Introduction of Anesthetic Agent into Epidural Space, Percutaneous Approach (ICD-10-PCS; CPT 62320; principal; 2021-01-14 08:30)
DX: M50.10 Cervical disc disorder with radiculopathy, unspecified cervical region (principal); M47.22 Other spondylosis with radiculopathy, cervical region; M48.02 Spinal stenosis, cervical region; I10 Essential (primary) hypertension; K21.9 Gastro-esophageal reflux disease without esophagitis; F32.A Depression, unspecified; F41.9 Anxiety disorder, unspecified; Z79.899 Other long term (current) drug therapy
CPT/HCPCS: 62321; 64490; 72020; J7120

== ENCOUNTER → 2021-01-16 12:16 | Outpatient (CLI) | payer OTHER, SELFPAY ==
--- NOTE | 2021-01-16 14:26 | MRI_ITS ---
EXAM: MR CERVICAL SPINE WITHOUT INTRAVENOUS CONTRAST CLINICAL INDICATION: DDD, PREV SURGERY Technologist Notes pain post fusion in 2014, neck and bilat arm pain TECHNIQUE: Multiplanar and multisequence MR images of the cervical spine without intravenous contrast were performed. This report was created using [employer] report generation technology. COMPARISON: 10.26.15 FINDINGS: VERTEBRAE: There is mild straightening of the normal cervical lordosis. This can suggest neck strain. C6-7. Normal endplates. Minimal loss of disc height. There is broad base disc bulge. Mild right neural foraminal stenosis. No significant spinal stenosis. No significant neural foraminal stenosis. There has been anterior fusion from C4-C6. Normal craniocervical junction and cervicothoracic junction. No spondylolisthesis. SPINAL CORD: Unremarkable in signal and morphology. SOFT TISSUES: Unremarkable. No prevertebral soft tissue swelling. LYMPH NODES: Unremarkable. There is no cervical adenopathy. DISCS/SPINAL CANAL/NEURAL FORAMINA: C2-C3: Unremarkable. Normal disc height and morphology. Normal spinal canal and neuroforamina. C3-C4: Unremarkable. Normal disc height and morphology. Normal spinal canal and neuroforamina. C4-C5: Unremarkable. Normal disc height and morphology. Normal spinal canal and neuroforamina. C5-C6: Unremarkable. Normal disc height and morphology. Normal spinal canal and neuroforamina. C6-C7: Unremarkable. Normal disc height and morphology. Normal spinal canal and neuroforamina. C7-T1: C7-T1. There is bilateral neural foraminal narrowing. Compression of exiting nerve root. MRI/Spine Cervical (Routine) IMPRESSION: 1. There is mild straightening of the normal cervical lordosis. This can suggest neck strain. 2. C6-7. Normal endplates. Minimal loss of disc height. There is broad base disc bulge. Mild right neural foraminal stenosis. No significant spinal stenosis. No significant neural foraminal stenosis. 3. C7-T1. There is bilateral neural foraminal narrowing. Compression of exiting nerve root. Electronically Signed: Troy Anderson MD at 15:48 EST , Service support ,
== END ==
PROVIDERS: PCP Family Medicine; Referring Provider Nurse Practitioner Acute Care; Visit Provider Nurse Practitioner Acute Care
DX: M50.30 Other cervical disc degeneration, unspecified cervical region (principal)
CPT/HCPCS: 72141

== ENCOUNTER → 2021-01-22 09:45 | Outpatient (CLI) | payer OTHER, SELFPAY ==
--- NOTE | 2021-01-22 09:47 | MRI_ITS ---
STUDY: MRI ABDOMEN WITH AND WITHOUT CONTRAST REASON FOR EXAM: Female, 45 years old. Hemachromatosis TECHNIQUE: Standardized fat and water weighted pulse sequences were obtained in all 3 orthogonal planes post contrast administration. IV 15ml Dotarem was administered for the contrast portion of the examination. COMPARISON: CT 05/24/2018 FINDINGS: The visualized lung bases are unremarkable. The visualized portions of the heart are within normal limits. On in phase imaging, there is moderate decreased signal intensity throughout the liver, as compared to skeletal muscle and spleen. Subsequent normalization of signal intensity of the spleen on out of phase imaging. Findings are typical of hemochromatosis. Mild focal sparing of the central left hepatic lobe with similar signal intensity on in phase and out of phase imaging. Small enhancing lesion (slightly hyperintense on T2, image 29 series 10) of the right hepatic lobe measuring 8 mm (stable since 2018) on image 43 of series 1101 likely represents a small hemangioma, accounting for the small size. Similar 6 mm lesion of the left hepatic lobe on image 33 of series 1101. Normal gallbladder and extrahepatic biliary system. Normal spleen. Normal pancreas. Normal bilateral adrenal glands. Normal right kidney. Normal left kidney. Follow viscus structures are unremarkable. Normal abdominal aorta. Normal inferior vena cava. Normal retroperitoneum. Normal abdominal wall. Normal osseous structures. MRI/MRI Abd WITH and W/O Contrast IMPRESSION: 1. Decrease signal intensity throughout the liver (with mild focal sparing) on IN PHASE compatible with hemachromatosis. Mild focal/regional sparing of the central left hepatic lobe. 2. Subcentimeter enhancing lesions of the left and right hepatic lobe, compatible with hemangiomata. Electronically Signed: Moises Hess MD (Brooks) at 12:20 EST , Service support ,
--- NOTE | 2021-01-22 10:35 | ECHODONC_ITS ---
Reason For Study: HEREDITARY HEMOCHROMATOSIS Procedure This was a 2D Doppler, Color Flow transthoracic echocardiogram. Exam performed in department. Left Ventricle Normal LV size. Left ventricular systolic function is normal. The estimated ejection fraction is 60 %. Normal diastology for age. No regional wall motion abnormalities noted. Right Ventricle Normal RV size. Normal systolic function. Atria The left atrium is mildly enlarged. Normal right atrium. Mitral Valve Normal mitral valve. Tricuspid Valve Normal tricuspid valve. Aortic Valve Normal aortic valve. Trisinus/trileaflet aortic valve. Pulmonic Valve Normal pulmonic valve. Great Vessels Normal aortic root. The pulmonary artery is normal size. Normal inferior vena cava. Pericardium/Pleural No pericardial effusion. MMode/2D Measurements & Calculations LVIDd: 4.1 cm IVSd: 0.90 cm Ao root diam: 3.8 cm LVIDs: 2.9 cm LVPWd: 0.88 cm RVDd: 2.5 cm FS: 29.1 % LAV(MOD-bp): 63.3 ml LA A4 area: 21.5 cm2 LA dimension(2D): 3.6 cm LAV(MOD-bp) Indexed: 35.6 ml/m2 LAV(MOD-sp2): 67.5 ml LAV(MOD-sp4): 58.4 ml RA A4 area: 12.6 cm2 Time Measurements MV dec time: 0.17 sec Doppler Measurements & Calculations MV E max lemuel: 81.3 cm/sec Lat Peak E' Lemuel: 14.5 cm/sec Med Peak E' Lemuel: 10.0 cm/sec MV A max lemuel: 64.3 cm/sec E/E' lat: 5.6 E/E' med: 8.1 MV E/A: 1.3 Ao V2 max: 154.2 cm/sec LV V1 max: 115.8 cm/sec PA V2 max: 105.7 cm/sec Ao max P.5 mmHg LV V1 max P.4 mmHg ECHO/ONC Echo Complete Interpretation Summary Normal LV size. Left ventricular systolic function is normal. The estimated ejection fraction is 60 %. Normal diastology for age. Structurally normal valves. Ordering Physician: Adela^^^ Referring Physician: Lucia Muir Performed By: Zohreh Love, WILLIE, RVT
== END ==
PROVIDERS: PCP Family Medicine; Referring Provider Internal Medicine Medical Oncology; Visit Provider Internal Medicine Medical Oncology
DX: E83.110 Hereditary hemochromatosis (principal)
CPT/HCPCS: 74183; 93306; 93356; A9575

== ENCOUNTER 2021-01-25 07:00 | Outpatient (RCR) | payer OTHER, SELFPAY ==
--- NOTE | 2021-01-17 11:22 | HP.PTEVAL_ITS ---
Patient's Visit Information MARINA PAIZ is a 45 year old F referred to Physical Therapy by Dr. Lucia Muir DO with a diagnosis of Cervical spine with radiculopathy. Date of Evaluation: 11/28/20 Physical Therapist: Ben Verma DPT - Visit Plan Frequency: 2x /Week Duration: 4 Weeks Plan: Start with cervical retraction, slowly, manual techniques, DN as needed. Promote postural awareness and strengthening. - Subjective Pt. is here today for her initial evaluation with cervical spine pain with radiculopathy. Pt. reports having pain for years. History of lower cervical fusion previously. Pt. is having pain in to shoulder and hands at times. Pt. does work out doing cross fit, with some issues, but would like to get back to doing without issues. Increases symptoms: bending, prolonged flexion. Decreases symptoms: rest. Pt. is to have an injection in a few weeks. Pt. is having some trouble with sleeping, and mornings are tough. Pt. reports no weakness in her UEs, but is mostly dealing with pain. Pt. is hopeful to reduce symptoms in order to do all work and recreational activities without limitations. She has not had recent xrays or other imaging recently. - Pain Cervical spine Pain Intensity (Out of 10): 2 Pain Intensity Range: 0, 4 - Objective POSTURE: Pt. has slight FH posture. Slight rounded shoulders, but is able to correct with VCing. PALPATION: Pt. has slight tenderness at B UE and B levator scap region. NEURO: normal bilaterally both sensation and DTR of UEs. ROM: Cervical spine: flexion- nil loss NE, ext: min loss increase NW, rotation min loss bilat increase nW. SB min loss bilat increase NW. Pt. has full shoulder ROM without increase in symptoms. MMT: 5/5 throughout without increase in symptoms. - Special Tests C/S Radiculapathy - Left Upper limb tension test: Negative C/S Radiculapathy - Right Upper limb tension test: Negative C/S Radiculapathy - Left Spurlings: Positive C/S Radiculapathy - Right Spurlings: Positive C/S Radiculapathy - Left Cervical distraction: Negative C/S Radiculapathy - Right Cervical distraction: Negative C/S Radiculapathy - Left Relief test: Positive Cervical Sitting: Protrusion - Mechanical Response: No effect Cervical Sitting: Protrusion - Symptoms During Testing: No effect Cervical Sitting: Protrusion - Symptoms After Testing: No effect Cervical Sitting: Retraction - Mechanical Response: No effect Cervical Sitting: Retraction - Symptoms During Testing: Increases Cervical Sitting: Retraction - Symptoms After Testing: No worse Cervical Sitting: Retraction-Extension - Mechanical Response: No effect Cerv Sitting: Retraction-Extension - Symptoms During Testing: Increases Cerv Sitting: Retraction-Extension - Symptoms After Testing: No worse Cervical Sitting: Sidebend Right - Mechanical Response: No effect Cervical Sitting: Sidebend Right - Symptoms During Testing: No effect Cervical Sitting: Sidebend Right - Symptoms After Testing: No effect Cervical Sitting: Sidebend Left - Mechanical Response: No effect Cervical Sitting: Sidebend Left - Symptoms During Testing: No effect Cervical Sitting: Sidebend Left - Symptoms After Testing: No effect Cervical Sitting: Rotation Right - Mechanical Response: No effect Cervical Sitting: Rotation Right - Symptoms During Testing: No effect Cervical Sitting: Rotation Right - Symptoms After Testing: No effect Cervical Sitting: Rotation Left - Mechanical Response: No effect Cervical Sitting: Rotation Left - Symptoms During Testing: No effect Cervical Sitting: Rotation Left - Symptoms After Testing: No effect Cervical Sitting: Flexion - Mechanical Response: No effect Cervical Sitting: Flexion - Symptoms During Testing: No effect Cervical Sitting: Flexion - Symptoms After Testing: No effect - Balance/Special Test Scores Oswestry Neck Score: 17 - Goals Goal 1:: LTG: Pt. to be I with HEP. Goal Time Frame: 4-6 Weeks Goal 2:: STG: Pt. to sleep throughout the night without increase in symptoms. Goal Time Frame: 2-4 Weeks Goal 3:: LTG: Pt. to have full cervical ROM without increase in symptoms. Goal Time Frame: 4-6 Weeks Goal 4:: LTG: Pt. to complete all work related activities without increase in symptoms. Goal Time Frame: 4-6 Weeks Goal 5:: STG: Pt. to have decreased radicular symptoms by 50%. Goal Time Frame: 2-4 Weeks - Rehabilitation Potential Physical Therapy Diagnosis: Pt. has signs and symptoms with radiculopathy into B shoulder and hands at time. Pt. Has signs of discogenic involvement. Rehabilitation Potential: Good - Anticipated Interventions Thank you for the opportunity to evaluate your patient. For Medicare and Medicare HMO plans, please review the plan of care and approve it. It will need to be FAXED BACK to us at [phone] for Medicare purposes. For Medicare only, by signing this I certify the plan of care. Please let me know if there are questions or concerns regarding this plan of care. Physician Signature: D ate:
== END 2021-01-25 19:00 | disposition home or self-care (01) ==
LOC: PT 07:00
PROVIDERS: PCP Family Medicine; Referring Provider Family Medicine; Visit Provider Family Medicine
DX: M54.12 Radiculopathy, cervical region (principal)
CPT/HCPCS: 97110; 97140; 97161; 97164

== ENCOUNTER 2021-02-12 09:52 | Outpatient (RCR) | payer OTHER, SELFPAY ==
--- NOTE | 2021-02-13 16:04 | MASS.EVAL ---
Massage Therapy Evaluation: Initial Evaluation Date: 02/12/2021 SUBJECTIVE: Yessica is a 45 year old female who was referred to the [facility] facility for a massotherapy evaluation by Dr. Lucia Muir with the diagnosis of cervical radiculopathy. She presents today with the symptoms of pain, stiffness and tension in the neck, head, mid back, low back, and hips. Yessica reports having a past medical history of neck and back pain and complains of radiating pain from her neck into her shoulders. She reports having minimal improvement with exercise and stretching over the last few months. OBJECTIVE: Upon observation Yessica has poor posture with her head and shoulders forward from the neutral position in sitting and standing. After examination and palpation, I found Yessica to have high muscle tension with tenderness and myofascial restrictions in her sub occipitals, levator scapulae, trapezius, rhomboids, scalenes, and thoracic paraspinals. Her QL?s, lumbar paraspinals, piriformis, ITB?s, glute medius and minimus all were very tight with fascial restrictions, tender points and trigger points. The first treatment consisted of a one hour massage to her upper body with myofascial release, muscle stripping, trigger point compression techniques, and cervical manual traction. ASSESSMENT: I feel that Yessica is a good candidate for massotherapy at this time. She had a favorable response to the first treatment with reduction in her muscle aches, pain, and tension. She also had improvement in her cervical flexibility and low back flexibility. PLAN: The plan of care was reviewed with the patient. The patient is to be seen on an as needed basis for a total of ten sessions with the recommendation of once every month for a one hour treatment.
--- NOTE | 2021-02-26 15:45 | MASS.DISCH ---
Massage Therapy Discharge Summary: Discharge Date: 02/26/2021 Yessica was seen for a massotherapy evaluation on 02/12/2021 with the diagnosis of cervical radiculopathy. She was treated with one session of massage therapy consisting of deep pressure soft tissue techniques, myofascial release and trigger point compression to his cervical, thoracic, lower back and hips. Yessica responded well to the therapy by reporting decreased tension and pain throughout her neck, shoulders, lower back, lower extremities and hips. Her goals for therapy were met throughout the treatment sessions. At this time this patient is being discharged from our care at [facility] facility.
== END 2021-02-12 19:00 | disposition home or self-care (01) ==
LOC: MASS 09:52
PROVIDERS: PCP Family Medicine; Referring Provider Family Medicine; Visit Provider Family Medicine
DX: M54.12 Radiculopathy, cervical region (principal)
CPT/HCPCS: 97124

== ENCOUNTER 2021-02-12 10:00 | Outpatient (RCR) | payer OTHER, SELFPAY | END 2021-02-12 11:27 | disposition home or self-care (01) | LOC: PT 10:00 | PROVIDERS: PCP Family Medicine; Referring Provider Nurse Practitioner Acute Care; Visit Provider Nurse Practitioner Acute Care | DX: M50.30 Other cervical disc degeneration, unspecified cervical region (principal) ==

== ENCOUNTER 2021-04-14 09:59 | Emergency (ER) | payer OTHER, SELFPAY ==
[2021-04-14 10:00] VITALS: BP 147/110; PULSE 84; RESP 15; TEMP 36.2; O2SAT 97; BMI 27.4
--- NOTE | 2021-04-14 10:30 | EX.ED.DYSGE1 ---
HPI History of Present Illness Chief Complaint: Headache Informant: patient Onset/Context/Timing Onset: Days Context: Gradual Onset Timing: Waxes and wanes Current Severity: Moderate Maximum Severity: Moderate Narrative Narrative: Patient presents secondary to headache. She had anterior cervical fusion performed on April [address] Stoddard at [facility]. Patient states he had a stretch her neck and pull on some of the muscles more than what they would normally do. She is been having some tension across the sternal area and across her neck posteriorly. She complains of a headache that is generalized in location but worse on the right. She is currently taking gabapentin and oxycodone with Tylenol. She denies light sensitivity. No vision change. She does report vomiting yesterday. [facility] Medical History Anxiety disorder Dysmenorrhea GERD (gastroesophageal reflux disease) History of echocardiogram Hypertension Injury of head and neck Kidney stones Menorrhagia with regular cycle Request for sterilization Wears contact lenses Wears glasses Home Medications alprazolam 0.5 mg PO PRN PRN 11/23/15 [History Last Taken 12/03/20] bupropion HCl 150 mg PO BID 11/23/15 [History Last Taken Unknown] ibuprofen 600 mg PO 4X/DAY #30 tab 06/09/18 [Rx Last Taken Unknown] amlodipine 5 mg tablet 5 mg PO DAILY #90 tab 12/24/20 [Rx Last Taken 01/14/21] cyanocobalamin (vitamin B-12) 1,000 mcg/mL injection syringe 1,000 mcg .ROUTE QMONTH 01/07/21 [History Last Taken Unknown] cyclobenzaprine 10 mg tablet 10 mg PO PRN PRN 01/07/21 [History Last Taken Unknown] valacyclovir 500 mg tablet 500 mg PO DAILY 01/07/21 [History Last Taken Unknown] cyclobenzaprine 10 mg PO BID PRN #10 tab 04/14/21 [Rx Last Taken Unknown] Allergy/AdvReac Type Severity Reaction Status Date / Time No Known Allergies Allergy Verified 04/14/21 10:02 Family History Father Hypertension Mother Hypertension Sister Hypertension Surgical History History of hysterectomy History of salpingectomy History of tonsillectomy Hx of fusion of cervical spine Social History Smoking Status: Never smoker alcohol intake: current details: rare substance use type: does not use caffeine: No what type of physical activity do you participate in: none seatbelt use: always do you feel safe at home: Yes ROS ROS ED Constitutional Constitutional ED: Denies chills or fever(s) Eyes Eyes: Denies change in vision ENT ENT ED: Denies sore throat Cardiovascular Cardiovascular: Denies chest pain Respiratory/Chest Respiratory/Chest: Denies cough or dyspnea Gastrointestinal Gastrointestinal: Reports nausea and vomiting; Denies abdominal pain or diarrhea Genitourinary Genitourinary ED: Denies dysuria Musculoskeletal Musculoskeletal: Reports neck pain; Denies back pain Integumentary Denies rash Neurologic Neurologic: Reports headache(s); Denies weakness Allergic/Immunologic Allergic/Immunologic ED: Denies urticaria EXAM Physical Exam Const Vital Signs: 04/14/21 10:00 Temperature 97.2 F L Temperature Source Temporal Pulse Rate 84 Respiratory Rate 15 Blood Pressure 147/110 H Blood Pressure Mean 122 Pulse Ox 97 Oxygen Delivery Method Room Air Positive well nourished and well developed General Appearance ED: well developed HEENT Reports moist mucous membranes Eyes PERRL and EOMs intact bilaterally Neck supple Neck Narrative: Mild tenderness in the upper cervical paraspinal muscles. No midline tenderness. Anterior surgical incision clean with no sign of infection. Chest Wall inspection of chest normal and palpation of chest normal Resp normal respiratory effort and clear to auscultation bilaterally Cardio regular rate GI non-tender Palpation: soft Neuro oriented x3 Neuro Narrative: No focal neurologic deficits. Sensorium / Orientation: alert Psych mental status grossly normal Skin no rashes or lesions noted MDM MDM MDM Narrative Medical decision making narrative: Patient initially given Norflex and Solu-Medrol. Treatment and Re-Evaluation Comments:: Repeat examination patient feeling slightly improved. Given a dose of morphine and Zofran. At this time patient states the headache itself is resolved, but she still has pressure. She has been advised not to take NSAIDs until seen in follow-up. She will continue her oxycodone, gabapentin, Tylenol. I will also write her for Flexeril. Discharge Plan Triage Chief Complaint: Headache ED Provider: Tash Tillman Dx/Rx/DC Orders Clinical Impression: Post-op pain Instructions: ED Post Op Wound Check, Pain Prescriptions: New cyclobenzaprine 10 mg tablet 10 mg PO BID PRN (Reason: muscle spasm) Qty: 10 RF: 0 No Action cyanocobalamin (vitamin B-12) 1,000 mcg/mL syringe 1,000 mcg .Route QMONTH RF: 0 bupropion HCl 150 MG tablet extended release 12 hr 150 mg PO BID RF: 0 alprazolam 0.5 MG tablet 0.5 mg PO PRN PRN (Reason: Anxiety) RF: 0 cyclobenzaprine 10 mg tablet 10 mg PO PRN PRN (Reason: MUSCLE SPASMS) RF: 0 valacyclovir 500 mg tablet 500 mg PO DAILY RF: 0 ibuprofen 600 MG tablet 600 mg PO 4X/DAY Qty: 30 RF: 1 amlodipine [Norvasc] 5 mg tablet 5 mg PO DAILY Qty: 90 RF: 4 Primary Care Provider: Lucia Muir Referrals: Lucia Muir DO [Primary Care Provider] - Activity Restrictions/Additional Instructions: Follow-up with your surgeon as scheduled. Disposition Disposition: Home, Self Care
[2021-04-14] MEDS: MethylPREDNISolone 125 MG/2 ML Vial IV (10:37)
[2021-04-14] MEDS: 0.9% Normal Saline 1,000 ML 999 ML IV (10:37)
[2021-04-14] MEDS: Orphenadrine 60 MG/2 ML Ampul IM (10:37)
[2021-04-14] MEDS: Ondansetron 4 MG/2 ML Vial IV (12:00)
[2021-04-14] MEDS: Morphine 4 MG/ML Syringe IV (12:20)
== END 2021-04-14 13:04 | disposition home or self-care (01) ==
PROVIDERS: Emergency Provider Emergency Medicine; PCP Family Medicine; Visit Provider Emergency Medicine
DX: G89.18 Other acute postprocedural pain (principal); M54.2 Cervicalgia; R51.9 Headache, unspecified; I10 Essential (primary) hypertension; Z98.1 Arthrodesis status; Z79.899 Other long term (current) drug therapy; F41.9 Anxiety disorder, unspecified; K21.9 Gastro-esophageal reflux disease without esophagitis
CPT/HCPCS: 96361; 96372; 96374; 96375; 99284; J7030; A4216; J2405

== ENCOUNTER 2021-06-04 08:30 | Outpatient (RCR) | payer OTHER, SELFPAY ==
--- NOTE | 2021-05-02 08:47 | HP.PTEVAL_ITS ---
Patient's Visit Information MARINA PAIZ is a 45 year old F referred to Physical Therapy by JACKELIN Dominguez with a diagnosis of C6-C7 cervical fusion. Date of Evaluation: 05/02/21 Physical Therapist: Ben Verma DPT - Visit Plan Frequency: 2-3x /Week Duration: 6 Weeks Plan: Start with cervical isometrics and wean into increase cervical ROM, no forceful over pressure. Gentle self ROM. May use manual for muscle tension. Progress scapular and deltoid strengthening. - Subjective Pt. is here today for her initial evaluation with diagnosis of C4-C6, C-C7 cervical fusion. DOS 04/08/21. Pt. reports overall doing well. She reports overall doing well. She arrives without cervical collar which she is in the process from weaning out of. She denies pain in UEs, no N/T and no loss of sensation. She does c/o stiffness, but is overall pleased. 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 She does have a lifting restriction of 5-10# currently. She does lift working out and reports begin eager to get back to doi ng this. She is sleeping well, she sleeps on her side with pillow taking up the space of her cervical spine. She did start driving and reports no issues with this. She is hopeful to get back to all reactional and work activities without limitations. - Pain Cervical spine Pain Intensity (Out of 10): 1 Pain Intensity Range: 0, 5 Comment: mostly pressure - Objective POSTURE: Pt. has good posture in sitting. Normal head posture, she does report having to focus on maintaining improved posture. I talked to her about not forcing end range postures. PALPATION: Pt. has well healing anterior L sided incision. She does has a stick present at lateral aspect of incision which she is keeping an eye on. No signs of infection. Pt. has tenderness, but minimal at B UT and B erector spine. NEURO: Pt. has normal UE DTR of BUEs and normal sensation to light and sharp touch throughout BUEs. ROM: B SHOULDERS: Pt. has normal ROM throughout, slight tightness in B lats and posterior capsule. CERVICAL SPINE: flexion: min loss tightness noted, extension min loss tightness noted, rotation L min loss tightness noted, rotation R tightness noted. MMT: BUEs: pt. has 4+/5 B shoulder strength throughout. No pain noted. Pt. has good tolerance throughout cervical spine to isometric testing. - Balance/Special Test Scores Oswestry Neck Score: 25 - Goals Goal 1:: LTG: Pt. to be I with HEP for cervical ROM and stability exercises. Goal Time Frame: 2-4 Weeks Goal 2:: STG: Pt. to sleep throughout the night without increase in symptoms. Goal Time Frame: 2 Weeks Goal 3:: LTG: Pt. to have full cervical ROM without increase in symptoms. Goal Time Frame: 2-4 Weeks Goal 4:: LTG: Pt. complete all household activities without issues or increase in pain. Goal Time Frame: 2-4 Weeks Goal 5:: LTG: Pt. to have increased of deltoid, mid trap, and UE to 5/5 without increase in symptoms. - Rehabilitation Potential Physical Therapy Diagnosis: Pt. has signs and symptoms consistent with C6-C7 cervical fusion with subsequent hypomobility and weakness. Pt. is overall doing well. She has marked stiff in her cervical spine and some weakness throughout upper quadrant. She would benefit from gentle progression of cervical ROM, cervical isometrics and working on thoracic stability. Rehabilitation Potential: Excellent - Anticipated Interventions Patient/Client Instruction: Educate patient on: Condition, Plan of Care, Risk Factors, Benefits of Fitness Program For the Purpose of:: To improve decision making, To improve self management, To prevent re-injury, To improve ability to perform tasks related to life management, To improve tolerance to ADL's Therapeutic Exercise to Include: Strength training, Power training, Body mechanics, Active ROM, Santa Exercises, Scapular Strength/Stabilization For the Purpose of:: To decrease pain, To decrease swelling/inflammation, To increase ROM, To improve nutrient delivery to tissue, To increase oxygenation perfusion, To improve muscle performance and motor function, To improve ability to perform ADL's, To decrease soft tissue restriction, To increase flexibility/ROM Manual Therapy Techniques to Include: Soft tissue mobilization For the Purpose of:: To decrease pain, To decrease swelling/inflammation, To increase ROM Thank you for the opportunity to evaluate your patient. For Medicare and Medicare HMO plans, please review the plan of care and approve it. It will need to be FAXED BACK to us at [phone] for Medicare purposes. For Medicare only, by signing this I certify the plan of care. Please let me know if there are questions or concerns regarding this plan of care. Physician Signature: Date:
--- NOTE | 2021-06-04 09:11 | HP.PTREVAL_ITS ---
Luiza Lemus, AURELIA-C, It has been my pleasure to treat MARINA PAIZ over the last 7 visits for C6-C7 cervical fusion. Please see the progress note below for an update on the physical therapy plan of care! Subjective: Pt. reports no issues. She just got back from vacation. No issues noted. She has been slowly increasing resistances and ROM as tolerated. Pt. pleased. Objective/Function: Pt. has good cervical ROM without issues. Pt. reports no arm or neck pain today. She has good cervical iso strength. Pt. has 5/5 strength thr oughout BUEs without issues. Pt. plans on trying to do her exercises on her own for a few weeks then follow up with needed. I talked to her about progressing her strengthening, but focus on increasing reps rather than higher resistances. Pt. consents. Plan Plan: Start with cervical isometrics and wean into increase cervical ROM, no forceful over pressure. Gentle self ROM. May use manual for muscle tension. Progress scapular and deltoid strengthening. Balance/Gait/Functional tests - Balance/Special Test Scores Oswestry Neck Score: 25 Goals Goal 1:: LTG: Pt. to be I with HEP for cervical ROM and stability exercises. Goal Time Frame: 2-4 Weeks Goal Progress: Goal Met Goal 2:: STG: Pt. to sleep throughout the night without increase in symptoms. Goal Time Frame: 2 Weeks Goal Progress: Goal Met Goal 3:: LTG: Pt. to have full cervical ROM without increase in symptoms. Goal Time Frame: 2-4 Weeks Goal Progress: Goal Met Goal 4:: LTG: Pt. complete all household activities without issues or increase in pain. Goal Time Frame: 2-4 Weeks Goal Progress: Goal Met Goal 5:: LTG: Pt. to have increased of deltoid, mid trap, and UE to 5/5 without increase in symptoms. Goal Progress: Goal Met Anticipated Interventions Patient/Client Instruction: Educate patient on: Condition, Plan of Care, Risk Factors, Benefits of Fitness Program For the Purpose of:: To improve decision making, To improve self management, To prevent re-injury, To improve ability to perform tasks related to life management, To improve tolerance to ADL's Therapeutic Exercise to Include: Strength training, Power training, Body mechanics, Active ROM, Santa Exercises, Scapular Strength/Stabilization For the Purpose of:: To decrease pain, To decrease swelling/inflammation, To increase ROM, To improve nutrient delivery to tissue, To increase oxygenation perfusion, To improve muscle performance and motor function, To improve ability to perform ADL's, To decrease soft tissue restriction, To increase flexibility/ROM Manual Therapy Techniques to Include: Soft tissue mobilization For the Purpose of:: To decrease pain, To decrease swelling/inflammation, To increase ROM Please do not hesitate to contact me at [phone] by phone or if you have questions or concerns regarding this new plan of care! Sincerely, CESILIA CarranzaT
== END 2021-06-04 19:00 | disposition home or self-care (01) ==
LOC: PT 08:30
PROVIDERS: PCP Family Medicine; Referring Provider Nurse Practitioner Acute Care; Visit Provider Nurse Practitioner Acute Care
DX: Z98.1 Arthrodesis status (principal)
CPT/HCPCS: 97110; 97140; 97161

== ENCOUNTER 2021-06-04 12:04 | Outpatient (CLI) | payer OTHER, SELFPAY ==
--- NOTE | 2021-06-04 16:00 | HEM_PTH ---
PATIENT: MARINA PAIZ LOC: [facility] U#:[id number] AGE/SX: 46/F ROOM: RE06/04/[address]: Dr. Darnell Ac MD : 1975 BED: DIS: 06/04/2021 SPEC #: [id number] RECD: 06/05/21 07:35 STATUS: CORY HOWELLFito #: [id number] JOSEP: 06/04/21 16:[address]: Darnell Ac DEPT: SURGICAL PATHOLOGY RECD BY: Eladio Carlson ENTERED: 06/05/21 13:12 SP TYPE: HEMORRHOID OTHR DR: Dr. Lucia Muir, DO Tissues: HEMORRHOIDS Procedures: Surgery Specimen Level III HEADER OPERATION: Excision of thrombosed hemorrhoids x2 PRE-OP DIAGNOSIS: Thrombosed hemorrhoids TISSUE SUBMITTED: Hemorrhoid tissue MICROSCOPIC DIAGNOSIS Hemorrhoids, hemorrhoidectomy: Submucosal vascular ectasia and thrombosis consistent with external hemorrhoids. AM:jose 06/06/2021 MICROSCOPIC DESCRIPTION Slides are reviewed. GROSS DESCRIPTION Received in fixative is one container labeled with the patient's name and designated hemorrhoid tissue. The specimen consists of two pieces of jackson, hemorrhagic mucosa and submucosa measuring 4 x 3 x 0.5 cm. Tool And Gauge Inspector sections of both pieces are submitted in one cassette. / SJ:jose 06/05/2021 TC:5 CPT: 84107
== END 2021-06-04 23:59 | disposition home or self-care (01) ==
LOC: LABSPEC 06-05 13:16
PROVIDERS: PCP Family Medicine; Visit Provider Surgery
DX: K64.5 Perianal venous thrombosis (principal)
CPT/HCPCS: 88304

== ENCOUNTER 2021-06-10 13:13 | Outpatient (CLI) | payer OTHER, SELFPAY ==
[2021-06-10 13:29] LABS: Absolute Lymphocyte Count 1.88 X10^3/uL (0.83-4.51); Absolute Neutrophil Count 4.2 X10^3/uL (2.0-7.7); Basophil# 0.03 X10^3/uL; Basophil% 0.4 % (0-1); Eosinophil# 0.06 X10^3/uL; Eosinophils% 0.9 % (0-5); Hematocrit 40.9 % (37-47); Hemoglobin 13.9 g/dL (12.0-15.0); Lymphocyte # 1.88 X10^3/ul (0.83-4.51); Lymphocyte % 27.9 % (19-41); Mean Corpuscular Volume 97.1 fL (81-99); Mean Platelet Vol. 8.5 fl (6.2-12.0); Monocyte# 0.53 X10^3/uL; Monocyte% 7.9 % (0-10); NRBC Flagged by Analyzer 0 % (0-5); Neutrophil # 4.22 X10^3/uL (2.7-7.7); Neutrophil % 62.5 % (47-70); Platelet Count 343 K/mm3 (150-450); RBC Distribution Width CV 11.9 % (11.6-14.6); RBC Distribution Width SD 42.9 fl (35.1-43.9); Red Blood Count 4.21 M/mm3 (4.2-5.4); White Blood Count 6.8 K/mm3 (4.4-11.0)
[2021-06-10 13:47] LABS: ALB/GLOB Ratio 1.1 RATIO (0.9-2.4); AST(SGOT) 33 U/L (15-37); Alanine Aminotransfer ALT/SGPT 63 U/L (13-56); Albumin, Serum 4.1 g/dL (3.2-5.0); Alkaline Phosphatase 91 U/L (45-117); Anion Gap 3 (5-15); BUN 15 mg/dL (7-18); BUN/Creat Ratio 20.1 RATIO (10-20); Calcium,Total 9.2 mg/dL (8.5-10.1); Chloride 105 mmol/L (98-107); Creatinine, Serum 0.74 mg/dL (0.55-1.02); EST Glomerular Filtration Rate 90 mL/min (>60); Est Glom Filt Rate - Afr Amer 108 mL/min (>60); Ferritin 329 ng/mL (8-252); Globulin 3.6 g/dL (2.2-4.2); Glucose 103 mg/dL (74-106); Iron 226 ug/dL (50-170); Iron Binding Capacity,Total 297 ug/dL (250-450); PERCENT IRON SATURATION 76.1 % (15.0-55.0); Potassium 3.5 mmol/L (3.5-5.1); Protein, Total 7.7 g/dL (6.4-8.2); Sodium Level 139 mmol/L (136-145)
== END 2021-06-10 23:59 | disposition home or self-care (01) ==
LOC: LAB 13:14
PROVIDERS: PCP Family Medicine; Referring Provider Nurse Practitioner Family; Visit Provider Nurse Practitioner Family
DX: E83.110 Hereditary hemochromatosis (principal)
CPT/HCPCS: 36415; 80053; 82728; 83540; 83550; 85025

== ENCOUNTER 2021-06-17 08:35 | Outpatient (CLI) | payer OTHER, SELFPAY ==
--- NOTE | 2021-06-17 08:39 | RAD_ITS ---
INDICATION: S/P CERVICAL FUSION EXAMINATION/TECHNIQUE: X-RAY - XR Spine Cervical 2 or 3 Views COMPARISON: None. FINDINGS: Anterior internal fixation of the cervical spine involving C3, C4, C5, C6 and C7 vertebral bodies. Intervertebral disc spacers visualized at C4-C5, C5-C6 and C6-C7. Mild straightening of alignment of the columns of the cervical spine is seen. No evidence of spondylolisthesis or traumatic subluxation. No significant variation in alignment is visualized in the flexion, extension and neutral positions. Unremarkable alignment of the lateral masses of C1 with C2. Multilevel degenerative endplate changes visualized, no evidence of compression deformity of the cervical vertebral bodies is seen. Extensive degenerative changes visualized in the C7-T1 intervertebral disc space and adjacent endplates with decreased intervertebral disc height visualized at this level. The prevertebral and posterior neck soft tissues are unremarkable. Oblique images demonstrate mild narrowing of the C7-T1 neural foramina. RAD/Cerv Spine 2 or 3 Views IMPRESSION: Degenerative changes of the cervical spine. No evidence of acute fracture or spondylolisthesis. Electronically Signed: Tadeo Easley MD at 10:21 EDT ,
== END 2021-06-17 23:59 | disposition home or self-care (01) ==
LOC: RAD 08:37
PROVIDERS: PCP Family Medicine; Referring Provider Nurse Practitioner Acute Care; Visit Provider Nurse Practitioner Acute Care
DX: Z98.1 Arthrodesis status (principal)
CPT/HCPCS: 72040

== ENCOUNTER → 2021-07-08 | Outpatient (CLI) | payer OTHER, SELFPAY ==
[2021-07-08 10:01] LABS: Absolute Lymphocyte Count 2.23 X10^3/uL (0.83-4.51); Absolute Neutrophil Count 3.5 X10^3/uL (2.0-7.7); Basophil# 0.04 X10^3/uL; Basophil% 0.6 % (0-1); Eosinophil# 0.07 X10^3/uL; Eosinophils% 1.1 % (0-5); Lymphocyte # 2.23 X10^3/ul (0.83-4.51); Lymphocyte % 35.1 % (19-41); Mean Corp Hgb Conc 33.3 g/dL (32-36); Mean Corpuscular Hgb 33.3 pg (27.0-32.0); Mean Corpuscular Volume 99.8 fL (81-99); Mean Platelet Vol. 8.6 fl (6.2-12.0); Monocyte# 0.55 X10^3/uL; Monocyte% 8.6 % (0-10); NRBC Flagged by Analyzer 0 % (0-5); Neutrophil # 3.46 X10^3/uL (2.7-7.7); Neutrophil % 54.4 % (47-70); Platelet Count 375 K/mm3 (150-450); RBC Distribution Width CV 11.8 % (11.6-14.6); RBC Distribution Width SD 43.4 fl (35.1-43.9); Red Blood Count 4.51 M/mm3 (4.2-5.4); White Blood Count 6.4 K/mm3 (4.4-11.0)
[2021-07-08 10:19] LABS: ALB/GLOB Ratio 1.1 RATIO (0.9-2.4); AST(SGOT) 23 U/L (15-37); Alanine Aminotransfer ALT/SGPT 30 U/L (13-56); Alkaline Phosphatase 89 U/L (45-117); Anion Gap 5 (5-15); BUN 12 mg/dL (7-18); BUN/Creat Ratio 16.6 RATIO (10-20); Calcium,Total 9.1 mg/dL (8.5-10.1); Chloride 102 mmol/L (98-107); Creatinine, Serum 0.72 mg/dL (0.55-1.02); EST Glomerular Filtration Rate 93 mL/min (>60); Est Glom Filt Rate - Afr Amer 112 mL/min (>60); Ferritin 188 ng/mL (8-252); Globulin 3.7 g/dL (2.2-4.2); Glucose 84 mg/dL (74-106); LDH 180 U/L (84-246); Protein, Total 7.7 g/dL (6.4-8.2); Sodium Level 137 mmol/L (136-145)
== END | disposition home or self-care (01) ==
LOC: LAB 09:43
PROVIDERS: PCP Family Medicine; Referring Provider Internal Medicine Medical Oncology; Visit Provider Internal Medicine Medical Oncology
DX: E83.110 Hereditary hemochromatosis (principal)
CPT/HCPCS: 36415; 80053; 82728; 83615; 85025

== ENCOUNTER → 2021-08-02 | Outpatient (CLI) | payer OTHER, SELFPAY ==
[2021-08-02 11:05] LABS: Absolute Lymphocyte Count 1.87 X10^3/uL (0.83-4.51); Absolute Neutrophil Count 3.1 X10^3/uL (2.0-7.7); Basophil# 0.03 X10^3/uL; Basophil% 0.5 % (0-1); Eosinophil# 0.06 X10^3/uL; Eosinophils% 1.1 % (0-5); Hematocrit 42.7 % (37-47); Hemoglobin 14.3 g/dL (12.0-15.0); Lymphocyte # 1.87 X10^3/ul (0.83-4.51); Lymphocyte % 32.8 % (19-41); Mean Corp Hgb Conc 33.5 g/dL (32-36); Mean Corpuscular Hgb 32.9 pg (27.0-32.0); Mean Corpuscular Volume 98.4 fL (81-99); Mean Platelet Vol. 8.8 fl (6.2-12.0); Monocyte# 0.63 X10^3/uL; Monocyte% 11.1 % (0-10); NRBC Flagged by Analyzer 0 % (0-5); Neutrophil % 54.3 % (47-70); Platelet Count 301 K/mm3 (150-450); RBC Distribution Width CV 11.4 % (11.6-14.6); RBC Distribution Width SD 41.7 fl (35.1-43.9); Red Blood Count 4.34 M/mm3 (4.2-5.4); White Blood Count 5.7 K/mm3 (4.4-11.0)
[2021-08-02 11:24] LABS: ALB/GLOB Ratio 1.1 RATIO (0.9-2.4); AST(SGOT) 26 U/L (15-37); Alanine Aminotransfer ALT/SGPT 36 U/L (13-56); Albumin, Serum 3.8 g/dL (3.2-5.0); Alkaline Phosphatase 77 U/L (45-117); Anion Gap 6 (5-15); BUN 12 mg/dL (7-18); BUN/Creat Ratio 16.5 RATIO (10-20); Calcium,Total 9.1 mg/dL (8.5-10.1); Chloride 101 mmol/L (98-107); Creatinine, Serum 0.73 mg/dL (0.55-1.02); EST Glomerular Filtration Rate 92 mL/min (>60); Est Glom Filt Rate - Afr Amer 112 mL/min (>60); Ferritin 135 ng/mL (8-252); Globulin 3.5 g/dL (2.2-4.2); Glucose 91 mg/dL (74-106); Potassium 3.9 mmol/L (3.5-5.1); Protein, Total 7.3 g/dL (6.4-8.2); Sodium Level 135 mmol/L (136-145)
== END | disposition home or self-care (01) ==
LOC: LAB 10:56
PROVIDERS: PCP Family Medicine; Referring Provider Internal Medicine Medical Oncology; Visit Provider Internal Medicine Medical Oncology
DX: E83.110 Hereditary hemochromatosis (principal)
CPT/HCPCS: 80053; 82728; 85025

== ENCOUNTER → 2021-08-14 | Outpatient (CLI) | payer OTHER, SELFPAY ==
--- NOTE | 2021-08-14 08:37 | BI_ITS ---
MAMMOGRAPHY - BILATERAL SCREENING REASON FOR EXAM: Female, 46 years old. Routine annual screening examination. PERTINENT HISTORY: Grandmother with breast cancer. Aunt with breast cancer. TECHNIQUE: Digital bilateral breast allen (3D mammographic acquisition) in the CC and MLO projections. 2-D mediolateral oblique (MLO) and craniocaudad (CC) views of both breasts were obtained. CAD: Full Field Digital Mammography with Computer Added Detection was performed. COMPARISON: Comparison is made with prior study dated 07/25/2020 and 04/07/2019. FINDINGS: Breast Composition: The breasts are heterogeneously dense, which may obscure small masses. There are no dominant masses or suspicious calcifications. No other significant abnormalities are identified. There has been no significant change since the prior study. BI/SCRN MAMM (CAD)W/ALLEN BILAT IMPRESSION: Stable bilateral screening mammogram. Yearly follow-up mammogram recommended. (A) ASSESSMENT CATEGORY: BIRADS Category 1: Negative. A letter regarding these results will be sent to the patient by the facility within 30 days. Approximately 10% of breast cancers are not detected by mammography. A normal mammogram should not delay biopsy of a clinically suspicious abnormality. [id number] Electronically Signed: Loyd Carrero MD at 9:13 EDT ,
== END | disposition home or self-care (01) ==
LOC: OPBI 08:33
PROVIDERS: PCP Family Medicine; Referring Provider Family Medicine; Visit Provider Family Medicine
DX: Z12.31 Encounter for screening mammogram for malignant neoplasm of breast (principal)
CPT/HCPCS: 77063; 77067

== ENCOUNTER → 2021-08-30 | Outpatient (CLI) | payer OTHER, SELFPAY ==
[2021-08-30 14:46] LABS: Absolute Neutrophil Count 4.2 X10^3/uL (2.0-7.7); Basophil# 0.03 X10^3/uL; Basophil% 0.5 % (0-1); Eosinophil# 0.06 X10^3/uL; Eosinophils% 0.9 % (0-5); Hematocrit 41.7 % (37-47); Hemoglobin 13.8 g/dL (12.0-15.0); Lymphocyte % 23.7 % (19-41); Mean Corp Hgb Conc 33.1 g/dL (32-36); Mean Corpuscular Hgb 32.8 pg (27.0-32.0); Mean Platelet Vol. 8.7 fl (6.2-12.0); Monocyte# 0.55 X10^3/uL; Monocyte% 8.7 % (0-10); NRBC Flagged by Analyzer 0 % (0-5); Neutrophil # 4.17 X10^3/uL (2.7-7.7); Neutrophil % 65.9 % (47-70); Platelet Count 316 K/mm3 (150-450); RBC Distribution Width CV 11.9 % (11.6-14.6); RBC Distribution Width SD 43.4 fl (35.1-43.9); Red Blood Count 4.21 M/mm3 (4.2-5.4); White Blood Count 6.3 K/mm3 (4.4-11.0)
[2021-08-30 15:19] LABS: Iron 111 ug/dL (50-170); Iron Binding Capacity,Total 301 ug/dL (250-450); PERCENT IRON SATURATION 36.9 % (15.0-55.0)
[2021-08-30 15:21] LABS: ALB/GLOB Ratio 1.1 RATIO (0.9-2.4); AST(SGOT) 28 U/L (15-37); Alanine Aminotransfer ALT/SGPT 38 U/L (13-56); Alkaline Phosphatase 108 U/L (45-117); Anion Gap 6 (5-15); BUN 11 mg/dL (7-18); Calcium,Total 9.2 mg/dL (8.5-10.1); Chloride 103 mmol/L (98-107); Creatinine, Serum 0.92 mg/dL (0.55-1.02); EST Glomerular Filtration Rate 70 mL/min (>60); Est Glom Filt Rate - Afr Amer 85 mL/min (>60); Ferritin 136 ng/mL (8-252); Globulin 3.5 g/dL (2.2-4.2); Glucose 99 mg/dL (74-106); Potassium 3.4 mmol/L (3.5-5.1); Protein, Total 7.5 g/dL (6.4-8.2); Sodium Level 139 mmol/L (136-145)
== END | disposition home or self-care (01) ==
LOC: LAB 13:50
PROVIDERS: Nurse Practitioner Family; PCP Family Medicine; Referring Provider Internal Medicine Medical Oncology; Visit Provider Internal Medicine Medical Oncology
DX: E83.110 Hereditary hemochromatosis (principal)
CPT/HCPCS: 80053; 82728; 83540; 83550; 85025

== ENCOUNTER → 2021-09-11 | Outpatient (CLI) | payer OTHER, SELFPAY ==
--- NOTE | 2021-09-11 10:47 | RAD_ITS ---
STUDY: X-RAY - CERVICAL SPINE REASON FOR EXAM: Female, 46 years old. ARTHRODESIS TECHNIQUE: 6 view(s) of the cervical spine were obtained including oblique views and flexion and extension views.. COMPARISON: Comparison is made with prior study dated 06/17/2021. FINDINGS: Normal anterior atlantoaxial articulation. Normal odontoid process. There is straightening of the normal cervical lordosis. The patient is status post anterior fusion and prosthetic disc placement at the C4-C5 and C5-C6 levels. Prosthetic disc is also seen at the C6-C7 level. There has been no change. Normal visualized intervertebral neuroforamina. The soft tissue structures are unremarkable. RAD/Cerv Spine Obl/Flex/Ext Comp IMPRESSION: Status post anterior fusion as described. Loss of the normal cervical lordosis. There has been no change since prior study. Electronically Signed: Loyd Carrero MD at 15:12 EDT ,
== END | disposition home or self-care (01) ==
LOC: RAD 10:46
PROVIDERS: PCP Family Medicine; Referring Provider Nurse Practitioner Acute Care; Visit Provider Nurse Practitioner Acute Care
DX: Z98.1 Arthrodesis status (principal)
CPT/HCPCS: 72052

== ENCOUNTER → 2021-09-26 | Outpatient (CLI) | payer OTHER, SELFPAY ==
[2021-09-26 09:04] LABS: Absolute Lymphocyte Count 1.68 X10^3/uL (0.83-4.51); Absolute Neutrophil Count 4.7 X10^3/uL (2.0-7.7); Basophil# 0.03 X10^3/uL; Basophil% 0.4 % (0-1); Eosinophil# 0.06 X10^3/uL; Eosinophils% 0.9 % (0-5); Hematocrit 42.1 % (37-47); Hemoglobin 14.3 g/dL (12.0-15.0); Lymphocyte # 1.68 X10^3/ul (0.83-4.51); Lymphocyte % 24.3 % (19-41); Mean Corpuscular Hgb 33.7 pg (27.0-32.0); Mean Corpuscular Volume 99.3 fL (81-99); Mean Platelet Vol. 8.8 fl (6.2-12.0); Monocyte# 0.47 X10^3/uL; Monocyte% 6.8 % (0-10); NRBC Flagged by Analyzer 0 % (0-5); Neutrophil # 4.65 X10^3/uL (2.7-7.7); Neutrophil % 67.3 % (47-70); Platelet Count 376 K/mm3 (150-450); RBC Distribution Width CV 12.1 % (11.6-14.6); RBC Distribution Width SD 44.6 fl (35.1-43.9); Red Blood Count 4.24 M/mm3 (4.2-5.4); White Blood Count 6.9 K/mm3 (4.4-11.0)
[2021-09-26 09:24] LABS: AST(SGOT) 22 U/L (15-37); Alanine Aminotransfer ALT/SGPT 25 U/L (13-56); Albumin, Serum 3.6 g/dL (3.2-5.0); Alkaline Phosphatase 87 U/L (45-117); Anion Gap 3 (5-15); BUN 12 mg/dL (7-18); BUN/Creat Ratio 16.2 RATIO (10-20); Calcium,Total 9.1 mg/dL (8.5-10.1); Chloride 102 mmol/L (98-107); Creatinine, Serum 0.74 mg/dL (0.55-1.02); EST Glomerular Filtration Rate 90 mL/min (>60); Est Glom Filt Rate - Afr Amer 109 mL/min (>60); Ferritin 160 ng/mL (8-252); Globulin 3.6 g/dL (2.2-4.2); Glucose 97 mg/dL (74-106); Potassium 3.9 mmol/L (3.5-5.1); Protein, Total 7.2 g/dL (6.4-8.2); Sodium Level 136 mmol/L (136-145)
== END | disposition home or self-care (01) ==
PROVIDERS: PCP Family Medicine; Referring Provider Internal Medicine Medical Oncology; Visit Provider Internal Medicine Medical Oncology
DX: E83.110 Hereditary hemochromatosis (principal)
CPT/HCPCS: 80053; 82728; 85025

== ENCOUNTER → 2021-11-14 | Outpatient (CLI) | payer OTHER, SELFPAY ==
[2021-11-14 10:24] LABS: Absolute Lymphocyte Count 1.91 X10^3/uL (0.83-4.51); Absolute Neutrophil Count 4.6 X10^3/uL (2.0-7.7); Basophil# 0.05 X10^3/uL; Basophil% 0.7 % (0-1); Eosinophil# 0.05 X10^3/uL; Eosinophils% 0.7 % (0-5); Hematocrit 42.4 % (37-47); Hemoglobin 14.1 g/dL (12.0-15.0); Lymphocyte # 1.91 X10^3/ul (0.83-4.51); Lymphocyte % 26.8 % (19-41); Mean Corp Hgb Conc 33.3 g/dL (32-36); Mean Corpuscular Hgb 32.5 pg (27.0-32.0); Mean Corpuscular Volume 97.7 fL (81-99); Mean Platelet Vol. 8.6 fl (6.2-12.0); Monocyte# 0.49 X10^3/uL; Monocyte% 6.9 % (0-10); NRBC Flagged by Analyzer 0 % (0-5); Neutrophil # 4.62 X10^3/uL (2.7-7.7); Neutrophil % 64.6 % (47-70); Platelet Count 395 K/mm3 (150-450); RBC Distribution Width CV 11.7 % (11.6-14.6); RBC Distribution Width SD 42.2 fl (35.1-43.9); Red Blood Count 4.34 M/mm3 (4.2-5.4); White Blood Count 7.1 K/mm3 (4.4-11.0)
[2021-11-14 10:44] LABS: Ferritin 212 ng/mL (8-252)
[2021-11-14 18:13] LABS: Xtra Tube EP Lab EXTRA TUBE
== END | disposition home or self-care (01) ==
LOC: LAB 10:10
PROVIDERS: PCP Family Medicine; Referring Provider Nurse Practitioner Family; Visit Provider Nurse Practitioner Family
DX: E83.110 Hereditary hemochromatosis (principal)
CPT/HCPCS: 36415; 82728; 85025; 99195

== ENCOUNTER 2021-12-13 06:56 | Day surgery (SDC) | payer OTHER, SELFPAY ==
--- NOTE | 2021-12-13 | COLBX_PTH ---
PATIENT: MARINA PAIZ LOC: [facility] U#:[id number] AGE/SX: 46/F ROOM: RE12/13/[address]: Dr. Darnell Ac MD : 1975 BED: DIS: 12/13/2021 SPEC #: [id number] RECD: 12/13/21 13:26 STATUS: CORY NATIVIDAD #: [id number] JOSEP: 12/13/21 00:[address]: Darnell Ac DEPT: SURGICAL PATHOLOGY RECD BY: Jai Cohn ENTERED: 12/13/21 13:26 SP TYPE: COLON BX OTHR DR: Dr. Lucia Muir DO Tissues: COLON BIOPSY Procedures: Surgery Specimen Level IV HEADER OPERATION: Colonoscopy (MAC) with biopsies PRE-OP DIAGNOSIS: Frequent loose stools, hemochromatosis associated 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 TISSUE SUBMITTED: Random colon biopsies MICROSCOPIC DIAGNOSIS Colon, random biopsy: Fragments of colonic mucosa, no pathologic diagnosis. SJ:jose 12/16/2021 MICROSCOPIC DESCRIPTION Slides are reviewed. GROSS DESCRIPTION Received in fixative is one container labeled with the patient's name and designated random colon biopsy. The specimen consists of multiple irregular fragments of light jackson soft tissue that in aggregate measure 2 x 0.5 x 0.1 cm. The specimen is totally submitted in one cassette. / Irvin 12/13/2021 TC:4 CPT: 77805
[2021-12-13 07:18] VITALS: BP 126/91; PULSE 73; RESP 16; TEMP 36.4; O2SAT 99; BMI 26.6
--- NOTE | 2021-12-13 07:21 | PCM.HP.BLA ---
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 Anxiety disorder Depression Dysmenorrhea Frequent loose stools GERD (gastroesophageal reflux disease) History of echocardiogram Hypertension Injury of head and neck Kidney stones Menorrhagia with regular cycle Request for sterilization Thrombosed external hemorrhoids Wears contact lenses Wears glasses Surgical History? History of hemorrhoidectomy History of hysterectomy History of salpingectomy History of tonsillectomy Hx of fusion of cervical spine Family History? Father HypertensionMother HypertensionSister Hypertension Social History? Smoking Status:? Never smoker alcohol intake:? current details:? rare substance use type:? does not use caffeine:? No what type of physical activity do you participate in:? none seatbelt use:? always do you feel safe at home:? Yes HPI HPI HPI: Very pleasant 46-year-old female.? I assisted her most recently on June 04, 2021 with an excision of thrombosed bilateral external hemorrhoids.? She did amazingly well with that.? She has been diagnosed with hemochromatosis.? Every 4 weeks she was getting evaluated and as needed underwent phlebotomy.? That schedule is now changed to every 8 weeks.? Fortunately she has had no DVT or pulmonary embolus or TIA or CVA.? For the past year however she has had ongoing problems with diarrhea.? She now has up to 5 watery stools per day.? No unexpected weight loss.? She has tried some food exclusion like gluten and lactose without any improvement.? There is no known family history of colon polyps or colon cancer.? She has not had any expected weight loss.? To her knowledge she has not had COVID-19.? She thinks that she is perimenopausal and has had some slight weight gain.? She is being referred both by Dr. Lucia Muir and Lavonne Albert CNP and a written copy of my surgical consult will be returned to them both. ROS General General: No weight change, appetite, fatigue, colon cancer, breast cancer or weakness HEENT HEENT: No difficulty swallowing, eye injury, eye surgery, swollen glands or hoarseness Endo Endocrine: No thyroid disease, diabetes mellitus, thyroid cancer, Hair loss, heat intolerance or cold intolerance Skin Skin: No rash or changing moles Breast Breast: No left breast lump, right breast lump, nipple discharge, breast pain, abnormal mammogram, abnormal US or breast enlargement Musc Musculoskeletal: No back problems, arthritis, rheumatoid arthritis, gout or joint pain Cardio Cardiovascular: Yes high blood pressure; No murmur, pacemaker, heart disease, atrial fibrillation, heart attack, heart stent, palpitations, shortness of breat with exertion or chest pain Psych Psychiatric: No depression, anxiety or hearing voices Resp Respiratory: No shortness of breath, No sleep apnea, No cough, No COPD, No asthma, No emphysema and No wheezing Gastro Gastrointestinal: Yes abdominal pain, No nausea or vomiting, No diarrhea, Yes constipation, No blood in stool, No acid reflux, Yes hemorrhoids, No ulcers, No gallbladder problem and No black,tarry stools Lambert Hematologic: No blood thinners, Yes blood disorders, No bleeding, No anemia and No blood clots Neuro Neurologic: No system reviewed and no additional complaints, except as documented, No as per HPI, No abnormal gait, No abnormal hearing, No abnormal movements, No abnormal speech, No behavioral changes, No burning sensations, No confusion, No convulsions, No disequilibrium, No dizziness, No localized weakness, No frequent falls, No headache(s), No lack of coordination, No loss of vision, No memory loss, No numbness, No other visual disturbances, No radicular pain, No restless legs, No sensory deficit, No syncope, No tingling, No tremor(s), No weakness and No other Exam Const General: cooperative, healthy appearing, comfortable and no acute distress [facility] Head: normal to inspection Eyes General: appearance normal, both eyes and all related structures Neck Neck: normal visual inspection Resp Effort & Inspection: normal respiratory effort Auscultation: clear to auscultation bilaterally Cardio Rate: regular rate Rhythm: regular rhythm GI Inspection: normal to inspection Palpation: soft and no hepatosplenomegaly Skin General: no rashes or lesions noted Neuro General: patient alert, patient awake and patient oriented x3 Extrem General: no calf tenderness Psych Appearance: grossly normal Assessment and Plan Assessment and Plan (1) Frequent loose stools: ?Status:?Acute (2) Hemochromatosis associated 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: ?Status:?Acute ?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 Plan I concur that recommendations for colonoscopy are pertinent in a 46-year-old female with change of bowel habits over the past year and frequent loose watery stools.? I recommend a colonoscopy with possible biopsy or polypectomy as indicated.? She is aware of technique, benefit, risk, alternatives.? She is not on any anticoagulant but she does get intermittent phlebotomy for her hematoma closes. She has had an opportunity to ask and have questions answered.? We will try to schedule and expedite her care.? I appreciate the opportunity of assisting with her surgical management. Copy: Dr. Lucia Raza and Lavonne Albert, BOILER/CHILLER TECHNICIAN Darnell Ac M.D., F.A.C.S. I have re-examined the patient. There are no clinical changes since date of exam. Darnell Ac M.D., F.A.C.S.
[2021-12-13] MEDS: Lactated Ringers 1,000 ML 15 ML IV (07:26)
--- NOTE | 2021-12-13 08:25 | OP.CCLET_ITS ---
12/13/2021 Lucia Muir [address] [place] [address] Re : Colonoscopy procedure for Yessica Dillard Dear Dr. Muir This procedure was performed on Monday, December 13, 2021. My impressions and recommendations are as follows: Impressions : - Hemorrhoids found on perianal exam. - The entire examined colon is normal. Biopsied. Recommendations : - Discharge patient to home. - Resume previous diet. - Continue present medications. - Repeat colonoscopy in 10 years for screening purposes. - Telephone my office for pathology results in 1 week. My findings are described in the full procedure note, which is enclosed. If I can be of further assistance, please feel free to contact me at Doctor phone number(s): Work: . Sincerely, Darnell Ac MD 12/13/2021 8:25:01 AM This report has been signed electronically.
--- NOTE | 2021-12-13 08:25 | OP.COLON_ITS ---
Patient Name: Yessica Dillard Procedure Date: 12/13/2021 7:58 AM Date of : 1975 Age: 46 Procedure: Colonoscopy Indications: Chronic diarrhea Providers: Darnell Ac MD Referring MD: Lucia Muir Medicines: See the Anesthesia note for documentation of the administered medications Patient Profile: Last Colonoscopy: none. The patient's first colonoscopy is today. Complications: No immediate complications. Procedure: Pre-Anesthesia Assessment: - Prior to the procedure, a History and Physical was performed, and patient medications and allergies were reviewed. The patient's tolerance of previous anesthesia was also reviewed. The risks and benefits of the procedure and the sedation options and risks were discussed with the patient. All questions were answered, and informed consent was obtained. Prior Anticoagulants: The patient has taken no previous anticoagulant or antiplatelet agents. ASA Grade Assessment: II - A patient with mild systemic disease. After reviewing the risks and benefits, the patient was deemed in satisfactory condition to undergo the procedure. After I obtained informed consent, the scope was passed under direct vision. Throughout the procedure, the patient's blood pressure, pulse, and oxygen saturations were monitored continuously. The adult colonoscope was introduced through the anus and advanced to the cecum, identified by appendiceal orifice and ileocecal valve. The colonoscopy was performed without difficulty. The patient tolerated the procedure well. The quality of the bowel preparation was good. Scope In: 8:06:22 AM Scope Withdrawal Time 0 hours 7 minutes 34 seconds Scope Out: 8:20:44 AM Total Procedure Duration Time 0 hours 14 minutes 22 seconds Findings: Hemorrhoids were found on perianal exam. The colon (entire examined portion) appeared normal. Biopsies for histology were taken with a cold forceps from the entire colon for evaluation of microscopic colitis. Impression: - Hemorrhoids found on perianal exam. - The entire examined colon is normal. Biopsied. Recommendation: - Discharge patient to home. - Resume previous diet. - Continue present medications. - Repeat colonoscopy in 10 years for screening purposes. - Telephone my office for pathology results in 1 week. Procedure Code(s): --- Professional --- 47792, Colonoscopy, flexible; with biopsy, single or multiple Diagnosis Code(s): --- Professional --- K64.9, Unspecified hemorrhoids K52.9, Noninfective gastroenteritis and colitis, unspecified CPT copyright 2017 [employer]. All rights reserved. The codes documented in this report are preliminary and upon remote medical coder review may be revised to meet current compliance requirements. Darnell Ac MD 12/13/2021 8:25:01 AM This report has been signed electronically. Number of Addenda: 0 Note Initiated On: 12/13/2021 7:58 AM
[2021-12-13 08:26] VITALS: BP 107/67; BP 126/91; PULSE 83; RESP 14; TEMP 36.3; O2SAT 96
[2021-12-13 08:30] VITALS: BP 102/66; BP 126/91; PULSE 79; RESP 14; O2SAT 97
[2021-12-13 08:35] VITALS: BP 110/84; BP 126/91; PULSE 110; RESP 16; O2SAT 99
[2021-12-13 08:42] VITALS: BP 111/84; BP 126/91; PULSE 96; RESP 18; TEMP 36.3; O2SAT 99
== END 2021-12-13 09:13 | disposition home or self-care (01) ==
LOC: EN 06:56 → AC 06:57
PROVIDERS: PCP Family Medicine; Referring Provider Family Medicine; Visit Provider Surgery
PROC: 0DJD8ZZ Inspection of Lower Intestinal Tract, Via Natural or Artificial Opening Endoscopic (ICD-10-PCS; CPT 45378; principal; 2021-12-13 07:55)
DX: K52.9 Noninfective gastroenteritis and colitis, unspecified (principal); K64.9 Unspecified hemorrhoids; I10 Essential (primary) hypertension; E83.119 Hemochromatosis, unspecified; K21.9 Gastro-esophageal reflux disease without esophagitis; F32.A Depression, unspecified; F41.9 Anxiety disorder, unspecified; Z79.899 Other long term (current) drug therapy
CPT/HCPCS: 45380; 88305; J7120

== ENCOUNTER → 2021-12-19 | Outpatient (CLI) | payer OTHER, SELFPAY ==
--- NOTE | 2021-12-19 07:24 | US_ITS ---
STUDY: ABDOMINAL ULTRASOUND REASON FOR EXAM: Female, 46 years old. Abnormal LFTs TECHNIQUE: Transabdominal ultrasound was performed with real-time and static fernandez scale imaging. TECHNICAL QUALITY: Limited. Examination limited by bowel gas. COMPARISON: MR abdomen from 01/22/2021 FINDINGS: Liver: The liver measures 14.4 cm. There is mild fatty infiltration of the liver without a discrete lesion. The bile ducts are within normal limits. There is hepatic color flow. The direction of portal flow is hepatopetal. There is no demonstrated mass lesion. Portal vein measurement: Gallbladder: Normal distended gallbladder. The gallbladder wall measures 2.0 mm. There is a negative sonographic Morin''s sign. There is no pericholecystic fluid. There are no gallstones, there is a nonshadowing 3 mm polyp. Common Bile Duct (C.B.D.): The common bile duct measures 2.6 mm. Pancreas: Visualized pancreas is sonographically normal Spleen: Normal size of the spleen. The spleen measures 9.4 cm. Right Kidney: Normal size of the right kidney. The right kidney measures 10.8 x 4.9 x 4.8 cm. Normal renal cortex. The right cortex measures 1.6 cm. There is no demonstrated renal mass or cyst. There is no right hydronephrosis. Left Kidney: Normal size of the left kidney. The left kidney measures 10.5 x 5.0 x 6.4 cm. Normal renal cortex. The left cortex measures 2.1 cm. There is no demonstrated renal mass or cyst. There is no left hydronephrosis. Aorta: Tapers normally I.V.C.: The IVC is patent. There is no ascites. US/Abdomen Complete IMPRESSION: Mild fatty infiltration of the liver, no discrete lesion Nonshadowing 3 mm gallbladder polyp, no sonographic evidence of cholecystitis Electronically Signed: Chandana Medrano MD at 9:25 EDT ,
== END | disposition home or self-care (01) ==
LOC: US 07:22
PROVIDERS: PCP Family Medicine; Referring Provider Nurse Practitioner Family; Visit Provider Nurse Practitioner Family
DX: E83.110 Hereditary hemochromatosis (principal)
CPT/HCPCS: 76700

== ENCOUNTER → 2022-01-09 | Outpatient (CLI) | payer OTHER, SELFPAY ==
[2022-01-09 08:27] LABS: Basophil# 0.03 X10^3/uL; Basophil% 0.6 % (0-1); Eosinophil# 0.13 X10^3/uL; Eosinophils% 2.4 % (0-5); Hematocrit 45.5 % (37-47); Hemoglobin 15.7 g/dL (12.0-15.0); Lymphocyte % 33.1 % (19-41); Mean Corp Hgb Conc 34.5 g/dL (32-36); Mean Corpuscular Hgb 33.6 pg (27.0-32.0); Mean Corpuscular Volume 97.4 fL (81-99); Mean Platelet Vol. 8.6 fl (6.2-12.0); Monocyte# 0.47 X10^3/uL; Monocyte% 8.7 % (0-10); NRBC Flagged by Analyzer 0 % (0-5); Neutrophil # 2.99 X10^3/uL (2.7-7.7); Platelet Count 310 K/mm3 (150-450); RBC Distribution Width CV 11.7 % (11.6-14.6); RBC Distribution Width SD 41.8 fl (35.1-43.9); Red Blood Count 4.67 M/mm3 (4.2-5.4); White Blood Count 5.4 K/mm3 (4.4-11.0)
[2022-01-09 08:45] LABS: ALB/GLOB Ratio 1.2 RATIO (0.9-2.4); AST(SGOT) 25 U/L (15-37); Alanine Aminotransfer ALT/SGPT 30 U/L (13-56); Albumin, Serum 4.1 g/dL (3.2-5.0); Alkaline Phosphatase 98 U/L (45-117); Anion Gap 6 (5-15); BUN 10 mg/dL (7-18); BUN/Creat Ratio 12.6 RATIO (10-20); Calcium,Total 9.2 mg/dL (8.5-10.1); Chloride 104 mmol/L (98-107); Creatinine, Serum 0.79 mg/dL (0.55-1.02); EST Glomerular Filtration Rate 83 mL/min (>60); Est Glom Filt Rate - Afr Amer 101 mL/min (>60); Ferritin 173 ng/mL (8-252); Globulin 3.5 g/dL (2.2-4.2); Glucose 113 mg/dL (74-106); Potassium 4.3 mmol/L (3.5-5.1); Protein, Total 7.6 g/dL (6.4-8.2); Sodium Level 141 mmol/L (136-145)
== END | disposition home or self-care (01) ==
LOC: LAB 08:06
PROVIDERS: PCP Family Medicine; Visit Provider Nurse Practitioner Family
DX: E83.110 Hereditary hemochromatosis (principal)
CPT/HCPCS: 36415; 80053; 82728; 85025

== ENCOUNTER → 2022-02-17 | Outpatient (CLI) | payer OTHER, SELFPAY ==
[2022-02-17 10:12] LABS: Absolute Lymphocyte Count 1.48 X10^3/uL (0.83-4.51); Absolute Neutrophil Count 4.2 X10^3/uL (2.0-7.7); Basophil# 0.04 X10^3/uL; Basophil% 0.6 % (0-1); Eosinophil# 0.07 X10^3/uL; Eosinophils% 1.1 % (0-5); Hematocrit 44.8 % (37-47); Hemoglobin 15.3 g/dL (12.0-15.0); Lymphocyte # 1.48 X10^3/ul (0.83-4.51); Lymphocyte % 23.5 % (19-41); Mean Corp Hgb Conc 34.2 g/dL (32-36); Mean Corpuscular Hgb 33.5 pg (27.0-32.0); Mean Platelet Vol. 8.9 fl (6.2-12.0); Monocyte# 0.45 X10^3/uL; Monocyte% 7.2 % (0-10); NRBC Flagged by Analyzer 0 % (0-5); Neutrophil # 4.24 X10^3/uL (2.7-7.7); Neutrophil % 67.4 % (47-70); Platelet Count 390 K/mm3 (150-450); RBC Distribution Width CV 11.9 % (11.6-14.6); RBC Distribution Width SD 43.1 fl (35.1-43.9); Red Blood Count 4.57 M/mm3 (4.2-5.4); White Blood Count 6.3 K/mm3 (4.4-11.0)
[2022-02-17 10:28] LABS: AST(SGOT) 28 U/L (15-37); Alanine Aminotransfer ALT/SGPT 35 U/L (13-56); Albumin, Serum 4.1 g/dL (3.2-5.0); Alkaline Phosphatase 99 U/L (45-117); Anion Gap 8 (5-15); BUN 11 mg/dL (7-18); BUN/Creat Ratio 12.8 RATIO (10-20); Calcium,Total 9.2 mg/dL (8.5-10.1); Chloride 103 mmol/L (98-107); Creatinine, Serum 0.86 mg/dL (0.55-1.02); EST Glomerular Filtration Rate 76 mL/min (>60); Est Glom Filt Rate - Afr Amer 92 mL/min (>60); Ferritin 205 ng/mL (8-252); Globulin 4.1 g/dL (2.2-4.2); Glucose 101 mg/dL (74-106); Iron 278 ug/dL (50-170); Iron Binding Capacity,Total 300 ug/dL (250-450); LDH 210 U/L (84-246); PERCENT IRON SATURATION 92.7 % (15.0-55.0); Potassium 3.6 mmol/L (3.5-5.1); Protein, Total 8.2 g/dL (6.4-8.2); Sodium Level 137 mmol/L (136-145)
== END | disposition home or self-care (01) ==
PROVIDERS: PCP Family Medicine; Visit Provider Internal Medicine Medical Oncology
DX: E83.110 Hereditary hemochromatosis (principal)
CPT/HCPCS: 80053; 82728; 83540; 83550; 83615; 85025; 99195

== ENCOUNTER 2022-04-14 11:01 | Outpatient (CLI) | payer OTHER, SELFPAY ==
[2022-04-14 11:43] LABS: Absolute Lymphocyte Count 1.98 X10^3/uL (0.83-4.51); Absolute Neutrophil Count 4.4 X10^3/uL (2.0-7.7); Basophil# 0.03 X10^3/uL; Basophil% 0.4 % (0-1); Eosinophil# 0.05 X10^3/uL; Eosinophils% 0.7 % (0-5); Hematocrit 43.4 % (37-47); Hemoglobin 14.7 g/dL (12.0-15.0); Lymphocyte # 1.98 X10^3/ul (0.83-4.51); Lymphocyte % 27.8 % (19-41); Mean Corp Hgb Conc 33.9 g/dL (32-36); Mean Corpuscular Hgb 33.2 pg (27.0-32.0); Mean Platelet Vol. 8.9 fl (6.2-12.0); Monocyte% 8.4 % (0-10); NRBC Flagged by Analyzer 0 % (0-5); Neutrophil # 4.44 X10^3/uL (2.7-7.7); Neutrophil % 62.4 % (47-70); Platelet Count 320 K/mm3 (150-450); RBC Distribution Width CV 11.6 % (11.6-14.6); RBC Distribution Width SD 42.1 fl (35.1-43.9); Red Blood Count 4.43 M/mm3 (4.2-5.4); White Blood Count 7.1 K/mm3 (4.4-11.0)
[2022-04-14 11:58] LABS: ALB/GLOB Ratio 1.2 RATIO (0.9-2.4); AST(SGOT) 18 U/L (15-37); Alanine Aminotransfer ALT/SGPT 20 U/L (13-56); Alkaline Phosphatase 77 U/L (45-117); Anion Gap 4 (5-15); BUN 12 mg/dL (7-18); BUN/Creat Ratio 17.3 RATIO (10-20); Calcium,Total 9.3 mg/dL (8.5-10.1); Chloride 102 mmol/L (98-107); EST Glomerular Filtration Rate 97 mL/min (>60); Est Glom Filt Rate - Afr Amer 117 mL/min (>60); Ferritin 82 ng/mL (8-252); Globulin 3.4 g/dL (2.2-4.2); Glucose 101 mg/dL (74-106); Iron 249 ug/dL (50-170); Iron Binding Capacity,Total 267 ug/dL (250-450); LDH 163 U/L (84-246); PERCENT IRON SATURATION 93.3 % (15.0-55.0); Potassium 3.9 mmol/L (3.5-5.1); Protein, Total 7.4 g/dL (6.4-8.2); Sodium Level 137 mmol/L (136-145)
== END 2022-04-14 23:59 | disposition home or self-care (01) ==
PROVIDERS: PCP Family Medicine; Visit Provider Internal Medicine Medical Oncology
DX: E83.110 Hereditary hemochromatosis (principal)
CPT/HCPCS: 80053; 82728; 83540; 83550; 83615; 85025

== ENCOUNTER → 2022-06-09 | Outpatient (CLI) | payer OTHER, SELFPAY ==
[2022-06-09 11:38] LABS: Absolute Lymphocyte Count 1.55 X10^3/uL (0.83-4.51); Absolute Neutrophil Count 4.2 X10^3/uL (2.0-7.7); Basophil# 0.03 X10^3/uL; Basophil% 0.5 % (0-1); Eosinophil# 0.08 X10^3/uL; Eosinophils% 1.3 % (0-5); Hematocrit 42.9 % (37-47); Hemoglobin 14.3 g/dL (12.0-15.0); Lymphocyte # 1.55 X10^3/ul (0.83-4.51); Lymphocyte % 24.2 % (19-41); Mean Corp Hgb Conc 33.3 g/dL (32-36); Mean Corpuscular Hgb 32.9 pg (27.0-32.0); Mean Corpuscular Volume 98.8 fL (81-99); Mean Platelet Vol. 9.6 fl (6.2-12.0); Monocyte# 0.49 X10^3/uL; Monocyte% 7.7 % (0-10); NRBC Flagged by Analyzer 0 % (0-5); Neutrophil # 4.24 X10^3/uL (2.7-7.7); Neutrophil % 66.1 % (47-70); Platelet Count 408 K/mm3 (150-450); RBC Distribution Width CV 11.9 % (11.6-14.6); RBC Distribution Width SD 43.7 fl (35.1-43.9); Red Blood Count 4.34 M/mm3 (4.2-5.4); White Blood Count 6.4 K/mm3 (4.4-11.0)
[2022-06-09 11:51] LABS: ALB/GLOB Ratio 1.1 RATIO (0.9-2.4); AST(SGOT) 24 U/L (15-37); Alanine Aminotransfer ALT/SGPT 23 U/L (13-56); Albumin, Serum 3.8 g/dL (3.2-5.0); Alkaline Phosphatase 78 U/L (45-117); Anion Gap 4 (5-15); BUN 13 mg/dL (7-18); BUN/Creat Ratio 16.1 RATIO (10-20); Chloride 102 mmol/L (98-107); EST Glomerular Filtration Rate 82 mL/min (>60); Est Glom Filt Rate - Afr Amer 99 mL/min (>60); Ferritin 159 ng/mL (8-252); Globulin 3.6 g/dL (2.2-4.2); Glucose 132 mg/dL (74-106); Potassium 3.5 mmol/L (3.5-5.1); Protein, Total 7.4 g/dL (6.4-8.2); Sodium Level 135 mmol/L (136-145)
== END | disposition home or self-care (01) ==
LOC: LAB 09:09
PROVIDERS: PCP Family Medicine; Referring Provider Internal Medicine Medical Oncology; Visit Provider Internal Medicine Medical Oncology
DX: E83.110 Hereditary hemochromatosis (principal)
CPT/HCPCS: 80053; 82728; 85025

== ENCOUNTER → 2022-08-11 | Outpatient (CLI) | payer OTHER, SELFPAY ==
[2022-08-11 13:24] LABS: Absolute Neutrophil Count 3.9 X10^3/uL (2.0-7.7); Basophil# 0.04 X10^3/uL; Basophil% 0.6 % (0-1); Eosinophil# 0.07 X10^3/uL; Eosinophils% 1.1 % (0-5); Hematocrit 42.2 % (37-47); Hemoglobin 14.1 g/dL (12.0-15.0); Lymphocyte % 28.8 % (19-41); Mean Corp Hgb Conc 33.4 g/dL (32-36); Mean Corpuscular Hgb 33.2 pg (27.0-32.0); Mean Corpuscular Volume 99.3 fL (81-99); Monocyte# 0.43 X10^3/uL; Monocyte% 6.9 % (0-10); NRBC Flagged by Analyzer 0 % (0-5); Neutrophil # 3.88 X10^3/uL (2.7-7.7); Neutrophil % 62.3 % (47-70); Platelet Count 323 K/mm3 (150-450); RBC Distribution Width CV 11.7 % (11.6-14.6); RBC Distribution Width SD 42.8 fl (35.1-43.9); Red Blood Count 4.25 M/mm3 (4.2-5.4); White Blood Count 6.2 K/mm3 (4.4-11.0)
[2022-08-11 13:38] LABS: ALB/GLOB Ratio 1.1 RATIO (0.9-2.4); AST(SGOT) 22 U/L (15-37); Alanine Aminotransfer ALT/SGPT 28 U/L (13-56); Albumin, Serum 3.9 g/dL (3.2-5.0); Alkaline Phosphatase 82 U/L (45-117); Anion Gap 7 (5-15); BUN 13 mg/dL (7-18); BUN/Creat Ratio 17.2 RATIO (10-20); Calcium,Total 9.1 mg/dL (8.5-10.1); Chloride 102 mmol/L (98-107); Creatinine, Serum 0.76 mg/dL (0.55-1.02); EST Glomerular Filtration Rate 88 mL/min (>60); Est Glom Filt Rate - Afr Amer 106 mL/min (>60); Ferritin 115 ng/mL (8-252); Globulin 3.6 g/dL (2.2-4.2); Glucose 120 mg/dL (74-106); Potassium 3.7 mmol/L (3.5-5.1); Protein, Total 7.5 g/dL (6.4-8.2); Sodium Level 136 mmol/L (136-145)
== END | disposition home or self-care (01) ==
LOC: LAB 13:02
PROVIDERS: PCP Family Medicine; Referring Provider Internal Medicine Medical Oncology; Visit Provider Internal Medicine Medical Oncology
DX: E83.110 Hereditary hemochromatosis (principal)
CPT/HCPCS: 80053; 82728; 85025

== ENCOUNTER → 2022-09-10 | Outpatient (CLI) | payer OTHER, SELFPAY ==
--- NOTE | 2022-09-10 11:15 | BI_ITS ---
MAMMOGRAPHY - BILATERAL SCREENING REASON FOR EXAM: Female, 47 years old. Routine annual screening examination. PERTINENT HISTORY: Grandmother with breast cancer. Aunt with breast cancer. TECHNIQUE: Digital bilateral breast allen (3D mammographic acquisition) in the CC and MLO projections. 2-D mediolateral oblique (MLO) and craniocaudad (CC) views of both breasts were obtained. CAD: Full Field Digital Mammography with Computer Added Detection was performed. COMPARISON: Comparison is made with prior study August 14, 2021 and July 25, 2020. FINDINGS: Breast Composition: The breasts are heterogeneously dense, which may obscure small masses. There are no dominant masses or suspicious calcifications. Stable small benign appearing bilateral axillary lymph nodes. No other significant abnormalities are identified. There has been no significant change since the prior study. BI/SCRN MAMM (CAD)W/ALLEN BILAT IMPRESSION: Stable bilateral screening mammogram. Yearly follow-up mammogram recommended. (A) ASSESSMENT CATEGORY: BIRADS Category 2: Benign. A letter regarding these results will be sent to the patient by the facility within 30 days. Approximately 10% of breast cancers are not detected by mammography. A normal mammogram should not delay biopsy of a clinically suspicious abnormality. [id number] Electronically Signed: Loyd Carrero MD at 12:21 EDT ,
== END | disposition home or self-care (01) ==
LOC: OPBI 11:13
PROVIDERS: PCP Family Medicine; Referring Provider Family Medicine; Visit Provider Family Medicine
DX: Z12.31 Encounter for screening mammogram for malignant neoplasm of breast (principal)
CPT/HCPCS: 77063; 77067

== ENCOUNTER → 2022-10-06 | Outpatient (CLI) | payer OTHER, SELFPAY ==
[2022-10-06 13:27] LABS: Absolute Lymphocyte Count 1.39 X10^3/uL (0.83-4.51); Absolute Neutrophil Count 4.4 X10^3/uL (2.0-7.7); Basophil# 0.04 X10^3/uL; Basophil% 0.6 % (0-1); Eosinophil# 0.08 X10^3/uL; Eosinophils% 1.2 % (0-5); Hemoglobin 14.9 g/dL (12.0-15.0); Lymphocyte # 1.39 X10^3/ul (0.83-4.51); Lymphocyte % 21.3 % (19-41); Mean Corp Hgb Conc 34.7 g/dL (32-36); Mean Corpuscular Hgb 33.3 pg (27.0-32.0); Mean Platelet Vol. 8.7 fl (6.2-12.0); Monocyte# 0.59 X10^3/uL; NRBC Flagged by Analyzer 0 % (0-5); Neutrophil # 4.41 X10^3/uL (2.7-7.7); Neutrophil % 67.6 % (47-70); Platelet Count 308 K/mm3 (150-450); RBC Distribution Width CV 11.9 % (11.6-14.6); RBC Distribution Width SD 41.6 fl (35.1-43.9); Red Blood Count 4.48 M/mm3 (4.2-5.4); White Blood Count 6.5 K/mm3 (4.4-11.0)
[2022-10-06 13:48] LABS: ALB/GLOB Ratio 1.1 RATIO (0.9-2.4); AST(SGOT) 29 U/L (15-37); Alanine Aminotransfer ALT/SGPT 37 U/L (13-56); Albumin, Serum 3.9 g/dL (3.2-5.0); Alkaline Phosphatase 96 U/L (45-117); Anion Gap 5 (5-15); BUN 11 mg/dL (7-18); BUN/Creat Ratio 14.6 RATIO (10-20); Calcium,Total 9.1 mg/dL (8.5-10.1); Chloride 102 mmol/L (98-107); Creatinine, Serum 0.76 mg/dL (0.55-1.02); EST Glomerular Filtration Rate 88 mL/min (>60); Est Glom Filt Rate - Afr Amer 106 mL/min (>60); Ferritin 173 ng/mL (8-252); Globulin 3.5 g/dL (2.2-4.2); Glucose 107 mg/dL (74-106); Potassium 3.5 mmol/L (3.5-5.1); Protein, Total 7.4 g/dL (6.4-8.2); Sodium Level 137 mmol/L (136-145)
[2022-10-08 04:07] LABS: AFP, Tumor Marker 2.6 ng/mL (0.0-6.4)
== END | disposition home or self-care (01) ==
LOC: LAB 13:00
PROVIDERS: Nurse Practitioner Family; PCP Family Medicine; Visit Provider Internal Medicine Medical Oncology
DX: E83.110 Hereditary hemochromatosis (principal)
CPT/HCPCS: 80053; 82105; 82728; 85025

== ENCOUNTER → 2022-12-01 | Outpatient (CLI) | payer OTHER, SELFPAY ==
[2022-12-01 12:05] LABS: Absolute Lymphocyte Count 1.76 X10^3/uL (0.83-4.51); Absolute Neutrophil Count 4.7 X10^3/uL (2.0-7.7); Basophil# 0.04 X10^3/uL; Basophil% 0.6 % (0-1); Eosinophil# 0.07 X10^3/uL; Hematocrit 44.6 % (37-47); Hemoglobin 14.8 g/dL (12.0-15.0); Lymphocyte # 1.76 X10^3/ul (0.83-4.51); Mean Corp Hgb Conc 33.2 g/dL (32-36); Mean Corpuscular Hgb 32.7 pg (27.0-32.0); Mean Corpuscular Volume 98.7 fL (81-99); Mean Platelet Vol. 9.1 fl (6.2-12.0); Monocyte# 0.52 X10^3/uL; Monocyte% 7.4 % (0-10); NRBC Flagged by Analyzer 0 % (0-5); Neutrophil # 4.65 X10^3/uL (2.7-7.7); Neutrophil % 65.9 % (47-70); Platelet Count 374 K/mm3 (150-450); RBC Distribution Width CV 11.8 % (11.6-14.6); RBC Distribution Width SD 43.2 fl (35.1-43.9); Red Blood Count 4.52 M/mm3 (4.2-5.4); White Blood Count 7.1 K/mm3 (4.4-11.0)
[2022-12-01 12:21] LABS: ALB/GLOB Ratio 1.1 RATIO (0.9-2.4); AST(SGOT) 26 U/L (15-37); Alanine Aminotransfer ALT/SGPT 22 U/L (13-56); Albumin, Serum 3.8 g/dL (3.2-5.0); Alkaline Phosphatase 79 U/L (45-117); Anion Gap 7 (5-15); BUN 17 mg/dL (7-18); BUN/Creat Ratio 14.7 RATIO (10-20); Calcium,Total 8.9 mg/dL (8.5-10.1); Chloride 105 mmol/L (98-107); Creatinine, Serum 1.16 mg/dL (0.55-1.02); EST Glomerular Filtration Rate 53 mL/min (>60); Est Glom Filt Rate - Afr Amer 65 mL/min (>60); Ferritin 145 ng/mL (8-252); Globulin 3.6 g/dL (2.2-4.2); Glucose 99 mg/dL (74-106); LDH 230 U/L (84-246); Potassium 3.9 mmol/L (3.5-5.1); Protein, Total 7.4 g/dL (6.4-8.2); Sodium Level 139 mmol/L (136-145)
== END | disposition home or self-care (01) ==
LOC: LAB 11:20
PROVIDERS: PCP Family Medicine; Referring Provider Internal Medicine Medical Oncology; Visit Provider Internal Medicine Medical Oncology
DX: E83.110 Hereditary hemochromatosis (principal)
CPT/HCPCS: 80053; 82728; 83615; 85025

== ENCOUNTER → 2023-03-03 | Outpatient (CLI) | payer OTHER, SELFPAY ==
[2023-03-03 14:29] LABS: Absolute Lymphocyte Count 1.72 X10^3/uL (0.83-4.51); Absolute Neutrophil Count 5.2 X10^3/uL (2.0-7.7); Basophil# 0.04 X10^3/uL; Basophil% 0.5 % (0-1); Eosinophil# 0.07 X10^3/uL; Eosinophils% 0.9 % (0-5); Hematocrit 42.1 % (37-47); Hemoglobin 13.7 g/dL (12.0-15.0); Lymphocyte # 1.72 X10^3/ul (0.83-4.51); Lymphocyte % 22.6 % (19-41); Mean Corp Hgb Conc 32.5 g/dL (32-36); Mean Corpuscular Hgb 31.9 pg (27.0-32.0); Mean Corpuscular Volume 98.1 fL (81-99); Mean Platelet Vol. 9.1 fl (6.2-12.0); Monocyte# 0.57 X10^3/uL; Monocyte% 7.5 % (0-10); NRBC Flagged by Analyzer 0 % (0-5); Neutrophil % 68.2 % (47-70); Platelet Count 356 K/mm3 (150-450); RBC Distribution Width CV 12.2 % (11.6-14.6); RBC Distribution Width SD 44.3 fl (35.1-43.9); Red Blood Count 4.29 M/mm3 (4.2-5.4); White Blood Count 7.6 K/mm3 (4.4-11.0)
[2023-03-03 14:50] LABS: AST(SGOT) 94 U/L (15-37); Alanine Aminotransfer ALT/SGPT 42 U/L (13-56); Albumin, Serum 3.7 g/dL (3.2-5.0); Alkaline Phosphatase 97 U/L (45-117); Anion Gap 3 (5-15); BUN 12 mg/dL (7-18); BUN/Creat Ratio 9.4 RATIO (10-20); Calcium,Total 9.1 mg/dL (8.5-10.1); Chloride 104 mmol/L (98-107); Creatinine, Serum 1.27 mg/dL (0.55-1.02); EST Glomerular Filtration Rate 48 mL/min (>60); Est Glom Filt Rate - Afr Amer 58 mL/min (>60); Globulin 3.6 g/dL (2.2-4.2); Glucose 117 mg/dL (74-106); LDH 242 U/L (84-246); Potassium 3.8 mmol/L (3.5-5.1); Protein, Total 7.3 g/dL (6.4-8.2); Sodium Level 136 mmol/L (136-145)
--- OUTSIDE RECORDS SUMMARY | 2023-03-03 15:32 | XMS RPT_ITS | CCD ---
Author Name Unknown Address [address] [place] [address] Organization [facility] Care Team Providers Care Receiving Checker Name Role Phone Allan BOWERSNLuiza WILL Unavailable Medications Completed/Discontinued Medications Medication Drug Class(es) Dates Sig (Normalized) Sig (Original) ALPRAZolam (1 source) Benzodiazepine Xanax by mouth a s directed alprazolam Lucia Aviles VALVER amLODIPine (1 source) Dihydropyridine Calcium Channel Destiny Norvasc by mouth as directed amlodipine Lucia Aviles VALVER buPROPion (1 source) Aminoketone bupropion hcl by mouth as directed bupropion hcl Lucia Aviles VALVER Problems Active Problems Problem Classification Problem Date Documented Date Episodic/Chronic Other connective tissue disease (1 source) History of cervical spine fusion; Translations: [Arthrodesis status] Onset: 04-25-2021 04-25-2021 Episodic Spondylosis; intervertebral disc disorders; other back problems (1 source) Degeneration of cervical intervertebral disc; Translations: [Other cervical disc degeneration, unspecified cervical region] Onset: 01-08-2021 01-08-2021 Chronic Past or Other Problems Problem Classification Problem Date Documented Da te Episodic/Chronic Unclassified (1 source) Problem Results Test Name Value Interpretation Reference Range Facil ity Vital Signs Date Time Vital Sign Value Performing Clinician Facility NEGATED: Highlighted [id number] 13:02-0500 Body height 162.56 cm Yadira Wood LPN [facility] Work Phone: NEGATED: Highlighted [id number] 13:02-0500 Body height 163 cm Yadira Wood LPN [employer] [facility] Work Phone: NEGATED: Highlighted [id number] 13:02-0500 Body mass index (BMI) [Ratio] 28.6 kg/m2 Yadira Wood LPN [facility] Work Phone: NEGATED: Highlighted [id number] 13: Body weight 75.3 kg Yadira Wood LPN [facility] Work Phone: NEGATED: Highlighted [id number] 13: Body weight 75 kg Yadira Wood LPN [facility] Work Phone: Encounters Encounter Date Encounter Type Care Provider Facility Start: 04-25-2021 End: 04-25-2021 Pt evaluation Luiza Lemus APRN-[employer] COMM[employer]ICATION[employer] SERGEANT Work Phone: [facility] Work Phone: Procedures Date Procedure Procedure Detail Performing Clinician Start: 04-25-2021 End: 04-26-2021 BP scrn no perf at interval Luiza Leums PUBLIC WORKS DIRECTOR-[employer] Work Phone: Start: 04-25-2021 End: 04-26-2021 Calc BMI out nrm theresa nof/u Luiza Lemus PUBLIC WORKS DIRECTOR-[employer] Work Phone: Start: 04-25-2021 End: 04-26-2021 Current tobacco non-user cad cap copd pv dm Luiza Lemus PUBLIC WORKS DIRECTOR-[employer] Work Phone: Start: 04-25-2021 End: 04-26-2021 Docrev cur meds by china Lemus PUBLIC WORKS DIRECTOR-[employer] Work Phone: Start: 04-25-2021 End: 04-26-2021 Pain doc pos and plan Luiza Lemus PUBLIC WORKS DIRECTOR-[employer] Work Phone: Start: 04-25-2021 End: 04-26-2021 Patient encounter procedure Luiza Lemus PUBLIC WORKS DIRECTOR-[employer] Work Phone: Start: 04-25-2021 End: 04-25-2021 Radex spine cervical 2 or 3 views Luiza Johnstran PUBLIC WORKS DIRECTOR-[employer]GE[employer] Work Phone: NEGATED: Highlighted rowStart: 04-25-2021 End: 04-25-2021 Documentation of current medications Yadira Wood LPN Plan of Treatment Date Care Activity Detail Author Start: 06-25-2021 End: 06-25-2021 Patient encounter procedure Appointment [facility] Work Phone: Social History Date Type Detail Facility Start: 04-26-2021 End: 04-26-2021 Assertion Unknown if ever smoked [facility] Work Phone: Evaluation note Note Date & Type Note Facility Evaluation note There may be informa tion available, but it has not been provided by the sender. [facility] Work Phone: Instructions Note Date & Type Note Facility [facility] Work Phone: Chief Complaint Chief Complaint Description Start Date neck post Exploration of ant erior cervical fusion, C4 through C6, with retained instrumentation, Anterior cervical discectomy and decompression, microscopic, C6-C7, Anterior cervical fusion, C6-C7, utilizing a 5 mm height, Spineart titanium standalone cervical cage packed with Morselized allograft preparation for fusion, Anterior screw fixation, C6-C7 utilizing 2 separate 3.5 x 16 mm, screws and one at C6 and one at C7 for fixation on 04/08/2021 Preliminary chief co mplaint data, not yet signed by the author as of Advance Directives There may be information available, but it has not been provided by the sender. Family History There may be information available, but it has not been provided by the sender. Additional Source Comments Reason for Visit (unrecogniz ed section and content) FOR RECORDS PERTAINING TO PATIENTS WHO ARE OR HAVE BEEN ENROLLED IN A CHEMICAL DEPENDENCY/SUBSTANCEABUSE PROGRAM, SOME INFORMATION MAY BE OMITTED. This clinical summary was aggregated from multiple sources. Caution should be exercised in using it in the provision of clinical care. This summary normalizes information from multiple sources, and as a consequence, information in this document may materially change the coding, format and clinical context of patient data. In addition, data may be omitted in some cases. CLINICAL DECISIONS SHOULD BE BASED ON THE PRIMARY CLINICAL RECORDS. [facility]. provides no warranty or guarantee of the accuracy or completeness of information in this document.
[2023-03-03 17:13] LABS: Ferritin 181 ng/mL (8-252)
[2023-03-05 04:07] LABS: AFP, Tumor Marker < 1.8 ng/mL (0.0-6.4)
== END | disposition home or self-care (01) ==
PROVIDERS: PCP Family Medicine; Referring Provider Nurse Practitioner Family; Visit Provider Nurse Practitioner Family
DX: E83.110 Hereditary hemochromatosis (principal)
CPT/HCPCS: 80053; 82105; 82728; 83615; 85025

== ENCOUNTER → 2023-03-09 | Outpatient (CLI) | payer OTHER, SELFPAY ==
--- NOTE | 2023-03-09 06:56 | US_ITS ---
STUDY: ABDOMINAL ULTRASOUND - RIGHT UPPER QUADRANT; ELASTOGRAPHY REASON FOR VISIT: Female, 47 years old. Hemochromatosis. TECHNIQUE: Ultrasound evaluation of the right upper quadrant was performed with real-time and static fernandez-scale imaging. Point quantification shear wave elastography was performed (Leatt). TECHNICAL QUALITY: Adequate. COMPARISON: Comparison is made with prior study December 19, 2021. FINDINGS: Liver: The liver measures 14.6 cm. There is normal echogenicity of the liver. The bile ducts are within normal limits. There is hepatic color flow. The direction of portal flow is hepatopetal. There is no demonstrated mass lesion. Median liver stiffness measured 5.9 kPa. Gallbladder: Normal distended gallbladder. The gallbladder wall measures mm. There is a negative sonographic Morin''s sign. There is no pericholecystic fluid. There are no gallstones. Multiple small gallbladder polyps are seen. The largest polyp measures 4 mm x 4 mm x 4 mm. Common Bile Duct (C.B.D.): The common bile duct measures 2.0 mm. Pancreas: Limited visualization of the pancreas due to overlying bowel gas. There is no demonstrated pancreatic mass or cyst. Right Kidney: Normal size of the right kidney. The right kidney measures 11.1 cm x 5.2 cm x 4.7 cm. Normal renal cortex. The right cortex measures 1.2 cm. There is no demonstrated renal mass or cyst. There is no right hydronephrosis. US/ABD Limited w/ Elastography IMPRESSION: 1. Liver stiffness measures 5.9 kPa compatible with F0-F1 (Normal to mild liver fibrosis) Metavir score. 2. Multiple small gallbladder polyps. Electronically Signed: Loyd Carrero MD at 13:06 EST ,
--- OUTSIDE RECORDS SUMMARY | 2023-03-09 06:58 | XMS RPT_ITS | CCD ---
Author Name Unknown Address [address] [place] [address] Organization [facility] Care Team Providers Care Train Operations Supervisor Name Role Phone Allan BOWERSNLuiza WILL Unavailable [phone] Medications Completed/Discontinued Medications Medication Drug Class(es) Dates Sig (Normalized) Sig (Original) ALPRAZolam (1 source) Benzodiazepine Xanax by mouth a s directed alprazolam Lucia Aviles AIRCRAFT INSTRUMENT REPAIRER amLODIPine (1 source) Dihydropyridine Calcium Channel Destiny Norvasc by mouth as directed amlodipine Lucia Aviles AIRCRAFT INSTRUMENT REPAIRER buPROPion (1 source) Aminoketone bupropion hcl by mouth as directed bupropion hcl Lucia Aviles AIRCRAFT INSTRUMENT REPAIRER Problems Active Problems Problem Classification Problem Date [...] Sign Value Performing Clinician Facility NEGATED: Highlighted [id number] 13:02-0500 Body height 162.56 cm Yadira Wood LPN [employer] [facility] Work Phone: NEGATED: Highlighted [id number] 13:02-0500 Body height 163 cm Yadira Wood LPN [employer] [facility] [place] [facility] Work Phone: NEGATED: Highlighted [id number] 13:02-0500 Body mass index (BMI) [Ratio] 28.6 kg/m2 Yadira Wood LPN [facility] Work Phone: NEGATED: Highlighted [id number] 13: Body weight 75.3 kg Yadira Wood LPN [facility] Work Phone: NEGATED: Highlighted [id number] 13: Body weight 75 kg Yadira Wood LPN [facility] Work Phone: Encounters Encounter Date Encounter Type Care Provider Facility Start: 04-25-2021 End: 04-25-2021 Pt evaluation Luiza Lemus APRN-TRANSPORTATION DEPARTMENT HEAD Work Phone: [facility] Work Phone: Procedures Date Procedure Procedure Detail Performing Clinician Start: 04-25-2021 End: 04-26-2021 BP scrn no perf at interval Luiza Lemus FIELD PARTY MANAGER-TRANSPORTATION DEPARTMENT HEAD Work Phone: Start: 04-25-2021 End: 04-26-2021 Calc BMI out nrm theresa nof/u Luiza Lemus FIELD PARTY MANAGER-TRANSPORTATION DEPARTMENT HEAD Work Phone: Start: 04-25-2021 End: 04-26-2021 Current tobacco non-user cad cap copd pv dm Luiza Lemus FIELD PARTY MANAGER-TRANSPORTATION DEPARTMENT HEAD Work Phone: Start: 04-25-2021 End: 04-26-2021 Docrev cur meds by china Lemus FIELD PARTY MANAGER-TRANSPORTATION DEPARTMENT HEAD Work Phone: Start: 04-25-2021 End: 04-26-2021 Pain doc pos and plan Luiza Lemus FIELD PARTY MANAGER-TRANSPORTATION DEPARTMENT HEAD Work Phone: Start: 04-25-2021 End: 04-26-2021 Patient encounter procedure Luiza Lemus FIELD PARTY MANAGER-TRANSPORTATION DEPARTMENT HEAD Work Phone: Start: 04-25-2021 End: 04-25-2021 Radex spine cervical 2 or 3 views Luiza Johnstran FIELD PARTY MANAGER-TRANSPORTATION DEPARTMENT HEAD Work Phone: NEGATED: Highlighted rowStart: 04-25-2021 End: 04-25-2021 Documentation of current medications Yadira Wood LPN Plan of Treatment Date Care Activity Detail Author Start: 06-25-2021 End: 06-25-2021 Patient encounter procedure Appointment [facility] Work Phone: Social History Date Type Detail Facility Start: 04-26-2021 End: 04-26-2021 Assertion Unknown if ever smoked [facility] Work Phone: Evaluation note Note Date & Type Note Facility Evaluation note There may be informa tion available, but it has not been provided by the sender. [facility] Work Phone: Instructions Note Date & Type Note Facility [facility] Work Phone: Chief Complaint Chief Complaint [...] BE BASED ON THE PRIMARY CLINICAL RECORDS. [employer] [facility]. provides no warranty or guarantee of the accuracy or completeness of information in this document.
[2023-06-03 09:19] LABS: Absolute Lymphocyte Count 1.49 X10^3/uL (0.83-4.51); Absolute Neutrophil Count 5.8 X10^3/uL (2.0-7.7); Basophil# 0.05 X10^3/uL; Basophil% 0.6 % (0-1); Eosinophil# 0.09 X10^3/uL; Eosinophils% 1.1 % (0-5); Hematocrit 45.9 % (37-47); Hemoglobin 15.4 g/dL (12.0-15.0); Lymphocyte # 1.49 X10^3/ul (0.83-4.51); Lymphocyte % 18.9 % (19-41); Mean Corp Hgb Conc 33.6 g/dL (32-36); Mean Corpuscular Volume 98.3 fL (81-99); Mean Platelet Vol. 8.7 fl (6.2-12.0); Monocyte% 5.1 % (0-10); NRBC Flagged by Analyzer 0 % (0-5); Neutrophil # 5.84 X10^3/uL (2.7-7.7); Platelet Count 354 K/mm3 (150-450); RBC Distribution Width CV 12.6 % (11.6-14.6); RBC Distribution Width SD 45.6 fl (35.1-43.9); Red Blood Count 4.67 M/mm3 (4.2-5.4); White Blood Count 7.9 K/mm3 (4.4-11.0)
[2023-06-03 09:39] LABS: ALB/GLOB Ratio 1.1 RATIO (0.9-2.4); AST(SGOT) 26 U/L (15-37); Alanine Aminotransfer ALT/SGPT 26 U/L (13-56); Albumin, Serum 4.1 g/dL (3.2-5.0); Alkaline Phosphatase 86 U/L (45-117); Anion Gap 6 (5-15); BUN 18 mg/dL (7-18); BUN/Creat Ratio 19.1 RATIO (10-20); Calcium,Total 9.1 mg/dL (8.5-10.1); Chloride 105 mmol/L (98-107); Creatinine, Serum 0.94 mg/dL (0.55-1.02); EST Glomerular Filtration Rate 68 mL/min (>60); Est Glom Filt Rate - Afr Amer 82 mL/min (>60); Ferritin 164 ng/mL (8-252); Globulin 3.9 g/dL (2.2-4.2); Glucose 117 mg/dL (74-106); LDH 231 U/L (84-246); Potassium 3.9 mmol/L (3.5-5.1); Sodium Level 137 mmol/L (136-145)
== END | disposition home or self-care (01) ==
LOC: US 06:56
PROVIDERS: PCP Family Medicine; Referring Provider Internal Medicine Medical Oncology; Visit Provider Internal Medicine Medical Oncology
DX: E83.110 Hereditary hemochromatosis (principal)
CPT/HCPCS: 76705; 76981; 80053; 82728; 83615; 85025

== ENCOUNTER → 2023-06-03 | Outpatient (CLI) | payer OTHER, SELFPAY ==
--- NOTE | 2023-06-03 09:25 | RAD_ITS ---
STUDY: X-RAY - RIGHT WRIST REASON FOR EXAM: Female, 48 years old. Continued pain following a previous fall. TECHNIQUE: 4 view(s) of the wrist were obtained. COMPARISON: None. FINDINGS: Normal visualized distal radius and ulna. Normal radiocarpal articulation. Normal distal radioulnar articulation. Normal carpal bones. Normal carpal articulations. Normal carpometacarpal articulation of the thumb. Normal second through fifth carpometacarpal articulations. Normal visualized metacarpal bones. The soft tissue structures are unremarkable. RAD/Wrist min 3 Views IMPRESSION: Normal x-ray examination of the wrist. Electronically Signed: Loyd Carrero MD at 15:38 EDT ,
== END | disposition home or self-care (01) ==
LOC: LAB 09:24 → RAD 09:25
PROVIDERS: PCP Family Medicine; Referring Provider Family Medicine; Visit Provider Family Medicine
DX: M25.531 Pain in right wrist (principal); W19.XXXA Unspecified fall, initial encounter
CPT/HCPCS: 73110

== ENCOUNTER → 2023-09-23 | Outpatient (CLI) | payer OTHER, SELFPAY ==
--- NOTE | 2023-09-23 13:38 | BI_ITS ---
MAMMOGRAPHY - BILATERAL SCREENING REASON FOR EXAM: Female, 48 years old. Routine annual screening examination. PERTINENT HISTORY: Grandmother with breast cancer. Aunt with breast cancer. TECHNIQUE: Digital bilateral breast allen (3D mammographic acquisition) in the CC and MLO projections. 2-D mediolateral oblique (MLO) and craniocaudad (CC) views of both breasts were obtained. CAD: Full Field Digital Mammography with Computer Added Detection was performed. COMPARISON: Comparison is made with prior study dated September 10, 2022 and August 14, 2021. FINDINGS: Breast Composition: The breasts are heterogeneously dense, which may obscure small masses. There are no dominant masses or suspicious calcifications. Stable small bilateral benign-appearing axillary lymph nodes. No other significant abnormalities are identified. There has been no significant change since the prior study. BI/SCRN MAMM (CAD)W/ALLEN BILAT IMPRESSION: Stable bilateral screening mammogram. Yearly follow-up mammogram recommended. (A) ASSESSMENT CATEGORY: BIRADS Category 2: Benign. A letter regarding these results will be sent to the patient by the facility within 30 days. Approximately 10% of breast cancers are not detected by mammography. A normal mammogram should not delay biopsy of a clinically suspicious abnormality. [id number] Electronically Signed: Loyd Carrero MD at 14:30 EDT ,
== END | disposition home or self-care (01) ==
LOC: OPBI 13:37
PROVIDERS: PCP Family Medicine; Referring Provider Family Medicine; Visit Provider Family Medicine
DX: Z12.31 Encounter for screening mammogram for malignant neoplasm of breast (principal); Z80.3 Family history of malignant neoplasm of breast
CPT/HCPCS: 77063; 77067

== ENCOUNTER 2023-11-04 03:50 | Emergency (ER) | payer OTHER, SELFPAY ==
[2023-11-04 03:50] VITALS: BP 148/93; PULSE 61; RESP 14; TEMP 36.6; O2SAT 100; BMI 28.8
--- NOTE | 2023-11-04 04:14 | EX.ED.DYSGE1 ---
HPI History of Present Illness Chief Complaint: Rash Detail of Chief Complaint: Rash right side of face superior lateral of the right brow Informant: patient Onset/Context/Timing Onset: Days (Patient states she was bit by ants.) Context: Sudden Onset Timing: Continuous Quality: Redness, swelling Location: Right side of the face near the brow. Current Severity: Mild Maximum Severity: Mild Worsened by: Nothing Relieved by: Nothing Associated Symptoms Associated Symptoms: Lymphadenopathy, denies pain Narrative Narrative: Patient is a 48-year-old female who presents with rash to the right side of her face. This started after she was bit by ants doing garden work. She presents now because of increased swelling with redness and swelling of the right periorbital region. She denies fever, chills night sweats. She denies pain or hyperesthesia. She denies visual disturbance or ocular symptoms. She has no other complaints. Prior similar symptoms: No Recent Illness/Hospitalization: No PFSH PFSH Medical History Alcohol use Low iron Hypertension Cardiology follow-up encounter Frequent loose stools Thrombosed external hemorrhoids Depression Wears contact lenses Wears glasses History of echocardiogram Kidney stones Anxiety disorder GERD (gastroesophageal reflux disease) Hypertension Request for sterilization Dysmenorrhea Menorrhagia with regular cycle Home Medications ?Medication ?Instructions ?Recorded ?Last Taken ?Type alprazolam 0.5 mg tablet 0.5 mg PO PRN PRN Anxiety 11/23/15 12/03/20 History cyanocobalamin (vitamin B-12) 1,000 mcg .Route QMONTH 01/07/21 Unknown History 1,000 mcg/mL injection syringe cyclobenzaprine 10 mg tablet 10 mg PO BID PRN muscle spasm #10 04/14/21 Unknown Rx tabs amlodipine 5 mg tablet (Norvasc) 5 mg PO DAILY #90 tabs 04/24/23 Unknown Rx cephalexin 500 mg capsule 500 mg PO Q6 #27 CAPSULES 11/04/23 Unknown Rx Allergy/AdvReac Type Severity Reaction Status Date / Time No Known Allergies Allergy Verified 11/04/23 03:54 Family History Father Hypertension Mother Hypertension Sister Hypertension Surgical History History of hemorrhoidectomy History of hysterectomy History of salpingectomy Hx of fusion of cervical spine History of tonsillectomy Social History Smoking Status: Never smoker alcohol intake: current details: rare substance use type: does not use caffeine: Yes what type of physical activity do you participate in: aerobics and weight training frequency: 3-4 times per week seatbelt use: always do you feel safe at home: Yes additional social history: [facility]-Radiology department ROS ROS ED Constitutional Constitutional ED: Denies chills, fever(s), subjective, sweats or weight loss Eyes Eyes: Reports other Details: Denies photophobia ; Denies blurry vision, change in vision or diplopia ENT ENT ED: Denies ear pain, rhinorrhea or sore throat Gastrointestinal Gastrointestinal: Denies nausea or vomiting Musculoskeletal Musculoskeletal: Reports neck pain; Denies arthralgias or myalgias Integumentary Reports rash EXAM Physical Exam Const Vital Signs: 11/04/23 03:50 Temperature 97.8 F Temperature Source Oral Pulse Rate 61 Respiratory Rate 14 Blood Pressure 148/93 H Blood Pressure Mean 111 Pulse Ox 100 Oxygen Delivery Method Room Air Positive well nourished and well developed General Appearance ED: well developed and NAD; Negative for cyanotic or diaphoretic HEENT Reports moist mucous membranes HEENT Narrative: Patient has redness induration forehead right side of the face superior to the right brow. There is no crusting or herpetic like lesions. There is edema of the upper eyelid minimal lower eyelid. There is no preauricular adenopathy. She does have lymphadenopathy 30 near the angle of the mandible on the right. There is no involvement of the ear. Eyes PERRL and EOMs intact bilaterally Eyes Narrative: Conjunctive is normal. There is no drainage noted. There is no photophobia. General Eye ED: Negative for pale conjunctiva or scleral icterus Neck No no lymphadenopathy, supple and no JVD Neck Narrative: Tenderness over the enlarged lymph nodes near the angle of the mandible on the right. General: tenderness Resp normal respiratory effort Cardio regular rate, regular rhythm, S1 normal heart sound, S2 normal heart sound and no murmurs Neuro oriented x3 and CN's II-XII intact bilaterally Sensorium / Orientation: alert Psych mental status grossly normal Skin Skin Narrative: Described under the HEENT portion of the EMR MDM MDM MDM Narrative Medical decision making narrative: Differential diagnosis would be herpes varicella-zoster, cellulitis, localized allergic reaction, localized allergic reaction with cellulitis. Presently she denies itching. Treatment and Re-Evaluation :: It is my opinion that this represents an infection. Will treat with cephalexin. She was instructed to return if there is any eye symptoms. Discharge Plan Triage Chief Complaint: Rash ED Provider: Tyrone Dunlap Dx/Rx/DC Orders Clinical Impression: Cellulitis of face, Hemochromatosis associated 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, Hypertension, Anterior cervical adenopathy Instructions: ED Cellulitis Prescriptions: New cephalexin 500 mg capsule 500 mg PO Q6 Qty: 27 0RF No Action cyanocobalamin (vitamin B-12) 1,000 mcg/mL syringe 1,000 mcg .Route QMONTH Rx Instructions: inject 1 ml intramuscularly once a month alprazolam 0.5 MG tablet 0.5 mg PO PRN PRN (Reason: Anxiety) cyclobenzaprine 10 mg tablet 10 mg PO BID PRN (Reason: muscle spasm) Qty: 10 0RF amlodipine [Norvasc] 5 mg tablet 5 mg PO DAILY Qty: 90 4RF Primary Care Provider: Lucia Muir Referrals: Lucia Muir DO [Primary Care Provider] - 2 Days for wound check Print Language: [place] Disposition Disposition: Home, Self Care
[2023-11-04 04:25] VITALS: BP 143/103; PULSE 50; RESP 16; TEMP 36.6; O2SAT 98
[2023-11-04] MEDS: Cephalexin 500 MG Capsule PO (04:26)
== END 2023-11-04 04:28 | disposition home or self-care (01) ==
PROVIDERS: Emergency Provider Emergency Medicine; PCP Family Medicine; Visit Provider Emergency Medicine
DX: L03.211 Cellulitis of face (principal); I10 Essential (primary) hypertension; R59.0 Localized enlarged lymph nodes; K21.9 Gastro-esophageal reflux disease without esophagitis; E83.119 Hemochromatosis, unspecified
CPT/HCPCS: 99282

== ENCOUNTER → 2024-03-08 | Outpatient (CLI) | payer OTHER, SELFPAY ==
[2024-03-08 12:29] LABS: Ferritin 181 ng/mL (8-252)
== END | disposition home or self-care (01) ==
LOC: LAB 10:56
PROVIDERS: PCP Family Medicine; Referring Provider Internal Medicine Medical Oncology; Visit Provider Internal Medicine Medical Oncology
DX: E83.110 Hereditary hemochromatosis (principal)
CPT/HCPCS: 82728

== ENCOUNTER → 2024-09-16 | Outpatient (CLI) | payer OTHER, SELFPAY ==
--- OUTSIDE RECORDS SUMMARY | 2024-09-16 06:13 | XMS RPT_ITS | CCD ---
Author Organization [facility] Care Team Providers [employer] Instructor Name Role Phone Allan SUPERVISOR POLICY CHANGE CLERKS-TEAM COORDINATOR, Luiza Unavailable Dr. Lucia Muir Primary Care Provider Dr. Lucia Muir Referring Provider Dr. Dae Long Attending Provider eBty RECYCLING WORKER, RECYCLING WORKER-C Lavonne Attending Provider Dr. Darnell Ac Attending Provider DAWIT Allison Attending Provider Dr. Lucia Muir Primary Care Provider Dr. Lucia Muir Referring Provider Dr. Dae Long Attending Provider Dr. Lucia Muir Primary Care Provider Dr. Lucia Miur Referring Provider [phone] Bety RECYCLING WORKER, RECYCLING WORKER-C Lavonne Attending Provider Dr. Lucia Muir Primary Care Provider Dr. Lucia Muir Referring Provider Bety RECYCLING WORKER, RECYCLING WORKER-C Lavonne Attending Provider Dr. Lucia Muir Primary Care Provider Dr. Lucia Muir Referring Provider Dr. Lucia Muir Primary Care Provider Dr. Lucia Muir Referring Provider Yashira, Dr. Darnell Rush Attending Provider Wood, Dr. Myers Primary Care Provider Wood, Dr. Myers Referring Provider 1([facility])[phone] Bety RECYCLING WORKER, RECYCLING WORKER-C Lavonne Attending Provider Cetiffany, Dr. Darnell Rush Other Provider 1([facility])[phone] Wood, Dr. Myers Primary Care Provider Wood, Dr. Myers Referring Provider Bety RECYCLING WORKER, RECYCLING WORKER-C Lavonne Attending Provider Yashira, Dr. Darnell Rush Attending Provider Cel, Dr. Darnell Rush Other Provider Ethan, Dr. Pearl Attending Provider 1([facility])[phone] Wood, Dr. Myers Primary Care Provider Wood, Dr. Myers Referring Provider 1([facility])[phone] [facility], Dr. Pearl Attending Provider Wood, Dr. Myers Primary Care Provider Wood, Dr. Myers Referring Provider 1([facility])[phone] Cristy, Dr. Pearl Attending Provider Wood, Dr. Myers Primary Care Provider Wood, Dr. Myers Referring Provider 1([facility])[phone] Ethan, Dr. Pearl Attending Provider Dr. Tash Lewis Attending Provider Lucia Muir Primary Care Unavailable Dae Long Attending Unavailable Dae Long Referring Unavailable Dunlap, Tyrone Attending Unavailable Maldidi, Lucia Primary Care Unavailable Malys, Lucia Primary Care Unavailable Assessment, Health Risk Attending Unavaila ble Assessment, Health Risk Referring Unavaila ble Malys, Lucia Primary Care Unavailable Malys, Lucia Attending Unavailable Malys, Lucia Referring Unavailable Medications Current Medications Medication Drug Class(es) Dates Sig (Normalized) Sig (Original) ALPRAZolam 0.5 mg oral tablet (20 sources) Benzodiazepine Start: 11-23-2015 Alprazolam Active 0.5 MG PO NEEDED November 23, 2015 12:00am Xanax by mouth a s directed alprazolam Lucia Stefan MERAZ amLODIPine 5 mg oral tablet (20 sources) Dihydropyridine Calcium Channel Destiny Start: 10-10-2020 End: 04-24-2023 take 1 tablet by mouth once daily Amlodipine (Norvasc) 5 mg tablet Active 5 MG PO DAILY April 24, 2023 2:15pm Start: 06-07-2018 End: 08-09-2019 take 1 tablet by mouth once daily Amlodipine (Norvasc) 5 mg tablet Discontinued 5 MG PO DAILY June 07, 2018 12:00am August 09, 2019 11:24am Norvasc by mouth as directed amlodipine Lucia Aviles LPN vitamin B12 (20 sources) Vitamin B12 Start: 01-07-2021 inject 1 mL by intramuscular injection every month Cyanocobalamin (Vitamin B-12) Active 1000 MCG .Route EVERY MONTH January 07, 2021 5:07pm inject 1 ml intramuscularly once a month Start: 01-07-2021 inject 1 mL by intra muscular injection every month Cyanocobalamin (Vitamin B-12) Active 1000 MCG .Route EVERY MONTH January 07, 2021 12:00am inject 1 ml intramuscularly once a month Start: 01-07-2021 inject 1 mL by intra muscular injection every month Cyanocobalamin (Vitamin B-12) Active 1000 MCG .Route EVERY MONTH January 07, 2021 1:00am inject 1 ml intramuscularly once a month Completed/Discontinued Medications Medication Drug Class(es) Dates Sig (Normalized) Sig (Original) 12 hr buPROPion hydrochloride 150 mg extended release oral tablet (20 sources) Aminoketone Start: 11-23-2015 End: 11-20-2021 take 150 mg by mouth twice daily Bupropion Hcl Discontinued 150 MG PO TWICE A DAY November 23, 2015 12:00am November 20, 2021 1:57pm bupropion hcl by mouth as directed bupropion hcl Lucia Aviles LPN cyclobenzaprine hydrochloride 10 mg oral tablet (20 sources) Muscle Relaxant Start: 11-23-2015 End: 06-04-2021 Cyclobenzaprine Discontinued 10 MG PO NEEDED January 07, 2021 5:05pm June 04, 2021 3:24pm gabapentin 300 mg oral capsule (20 sources) Anti-epileptic Agent Start: 04-29-2021 End: 06-04-2021 take 300 mg by mouth once daily Gabapentin Discontinued 300 MG PO DAILY April 29, 2021 1:00am June 04, 2021 3:25pm hydroCHLOROthiazide 25 mg / lisinopril 20 mg oral tablet (20 sources) Thiazide Diuretic, Angiotensin Converting Enzyme Inhibitor Start: 06-30-2017 End: 07-10-2017 take 1 tablet by mouth once daily Lisinopril-Hydrochl orothiazide Discontinued 1 TABLET PO daily June 30, 2017 12:00am July 10, 2017 8:51am Start: 01-16-2016 End: 06-30-2017 take 1 tablet by mouth twice daily Lisinopril-Hydrochlorothiazide Discontin ued 1 TABLET PO TWICE A DAY January 16, 2016 1:00am June 30, 2017 3:15pm ibuprofen 600 mg oral tablet (20 sources) Nonsteroidal Anti-inflammatory Drug Start: 01-23-2016 End: 06-30-2017 take 600 mg by mouth four times daily Ibuprofen Discontinued 600 MG PO 4 TIMES DAILY January 23, 2016 8:53am June 30, 2017 3:16pm ketorolac tromethamine 10 mg oral tablet (20 sources) Nonsteroidal Anti-inflammatory Drug, Cyclooxygenase Inhibitor Start: 06-02-2018 End: 06-09-2018 take 10 mg by mouth every six hours Ketorolac Discontinued 10 MG PO EVERY 6 HOURS June 02, 2018 12:00am June 09, 2018 7:36am metroNIDAZOLE 500 mg oral tablet (19 sources) Nitroimidazole Antimicrobial Start: 06-10-2021 End: 06-15-2021 take 500 mg by mouth three times daily Metronidazole Discontinued 500 MG PO THREE TIMES A DAY 15 5 June 10, 2021 12:00am June 15, 2021 12:05am ondansetron 4 mg oral tablet (20 sources) Serotonin-3 Receptor Antagonist Start: 01-23-2016 End: 06-30-2017 take 4 mg by mouth every six hours as needed Ondansetron Hcl Discontinued 4 MG PO EVERY 6 HOURS NEEDED January 23, 2016 8:52am June 30, 2017 3:16pm oxyCODONE hydrochloride 5 mg oral tablet (20 sources) Opioid Agonist Start: 06-09-2018 End: 06-16-2018 take 5-10 mg by mouth every four hours as needed Oxycodone Discontinued 5 - 10 MG PO EVERY 4 HOURS NEEDED 18 09June 09, 2018 12:00am June 16, 2018 12:07am Start: 01-23-2016 End: 06-30-2017 take 10 mg by mouth every six hours as needed Oxycodone Discontinued 10 MG PO EVERY 6 HOURS NEEDED January 23, 2016 1:00am June 30, 2017 3:16pm valACYclovir 500 mg oral tablet (20 sources) Herpesvirus Nucleoside Analog DNA Polymerase Inhibitor, Herpes Simplex Virus Nucleoside Analog DNA Polymerase Inhibitor, Herpes Zoster Virus Nucleoside Analog DNA Polymerase Inhibitor Start: 11-23-2015 End: 01-07-2021 take 500 mg by mouth once daily Valacyclovir Discontinued 500 MG PO DAILY November 23, 2015 12:00am January 07, 2021 5:09pm Problems Active Problems Problem Classification Problem Date Documented Da te Episodic/Chronic Contraceptive and procreative management (20 sources) Sterilization requested; Translations: [Encounter for sterilization] 06-09-2018 Episodic Esophageal disorders (20 sources) Gastroesophageal reflux disease; Translations: [Gastro-esophageal reflux disease without esophagitis] 06-09-2018 Chronic Essential hypertension (20 sources) Hypertensive disorder; Translations: [Essential (primary) hypertension] 12-11-2021 Chronic Hemorrhoids (20 sources) Thrombosed external hemorrhoids; Translations: [Perianal venous thrombosis] Episodic Inflammatory diseases of female pelvic organs (2 sources) Abscess of labia; Translations: [Abscess of vulva] 04-23-2023 Episodic Menstrual disorders (20 sources) Menorrhagia; Translations: [Excessive and frequent menstruation with regular cycle] 06-09-2018 Chronic Other connective tissue disease (1 source) History of cervical spine fusion; Translations: [Arthrodesis status] Onset: 2 04-25-2021 Episodic Other gastrointestinal disorders (11 sources) Diarrhea; Translations: [Diarrhea, unspecified] 11-14-2021 Episodic Other gastrointestinal disorders (9 sources) Diarrhea, unspecified; Translations: [Diarrhea] Episodic Other nervous system disorders (20 sources) Postoperative pain ; Translations: [Other acute postprocedural pain] 04-22-2021 Episodic Other nutritional; endocrine; and metabolic disorders (6 sources) Hemochromatosis; Translations: [Hereditary hemochromatosis] Chronic Other nutritional; endocrine; and metabolic disorders (20 sources) Hereditary hemochromatosis; Translations: [Hereditary hemochromatosis] Onset: Chronic Spondylosis; intervertebral disc disorders; other back problems (1 source) Degeneration of cervical intervertebral disc; Translations: [Other cervical disc degeneration, unspecified cervical region] Onset: 1 01-08-2021 Chronic Past or Other Problems Problem Classification Problem Date Documented Da te Episodic/Chronic Other screening for suspected conditions (not mental disorders or infectious disease) (1 source) Encounter for screening mammogram for malignant neoplasm of breast; Translations: [Encounter for screening mammogram for malignant neoplasm of breast] Onset: 10-15-2023 Episodic Other skin disorders (1 source) Rash and other nonspecific skin eruption; Translations: [Rash and other nonspecific skin eruption] Onset: 11-25-2023 Episodic Unclassified (1 source) Problem Results Test Name Value Interpretation Reference Range Facility CBC, Employeeon 08-15-2024 Absolute Lymph 1.97 X10 3/uL Normal 0.83-4.[address] [facility] Comment on above: Performed By: #### L 500.2900, L100.0200, L400.0100 #### [facility] [address] [facility]. [place], [place], [facility] Absolute Neut 4.2 X10 3/uL Normal 2.0-7.[address] [facility] Comment on above: Performed By: #### L 500.2900, L100.0200, L400.0100 #### [facility] [address] [place], [address] Basophils/100 WBC (Bld) 0.6 % Normal 0-[address] [facility] Comment on above: Performed By: #### L 500.2900, L100.0200, L400.0100 #### [facility] [address] [facility], [address] Eosinophils/100 WBC (Bld) 1.0 % Normal 0-[address] [facility] Comment on above: Performed By: #### L 500.2900, L100.0200, L400.0100 #### [facility] [address] [place], [address] Erythrocyte distribution width (RBC) [Ratio] 12.0 % Normal 11.6-14.[address] [facility] Comment on above: Performed By: #### L 500.2900, L100.0200, L400.0100 #### [facility] [address] [place], [address] Hematocrit (Bld) [Volume fraction] 43.6 % Normal 37-[address] [facility] Comment on above: Performed By: #### L 500.2900, L100.0200, L400.0100 #### [facility] [address] [place], [address] Hemoglobin (Bld) [Mass/Vol] 14.6 g/dL Normal 12.0-15.[address] [facility] Comment on above: Performed By: #### L 500.2900, L100.0200, L400.0100 #### [facility] [address] [place], [address] Lymphocytes/100 WBC (Bld) 28.4 % Normal 19-[address] [facility] Comment on above: Performed By: #### L 500.2900, L100.0200, L400.0100 #### [facility] [address] [place], [address] MCH (RBC) [Entitic mass] 32.7 pg High 27.0-32.[address] [facility] Comment on above: Performed By: #### L 500.2900, L100.0200, L400.0100 #### [facility] [address] [place], [address] MCHC (RBC) [Mass/Vol] 33.5 g/dL Normal 32-[address] [facility] Comment on above: Performed By: #### L 500.2900, L100.0200, L400.0100 #### [facility] [address] [place], [address] MCV (RBC) [Entitic vol] 97.8 fL Normal 81-[address] [facility] Comment on above: Performed By: #### L 500.2900, L100.0200, L400.0100 #### [facility] [address] [place], [address] Monocytes/100 WBC (Bld) 9.8 % Normal 0-[address] [facility] Comment on above: Performed By: #### L 500.2900, L100.0200, L400.0100 #### [facility] [address] [place], [address] Neutrophils/100 WBC (Bld) 59.8 % Normal 47-[address] [facility] Comment on above: Performed By: #### L 500.2900, L100.0200, L400.0100 #### [facility] [address] [place], [address] NRBC # 0.00 10 3/uL Normal 0-[address] [facility] Comment on above: Performed By: #### L 500.2900, L100.0200, L400.0100 #### [facility] [address] [place], [address] Nucleated RBC (Bld) [#/Vol] 0 10*3/uL Normal 0-[address] [facility] Comment on above: Performed By: #### L 500.2900, L100.0200, L400.0100 #### [facility] [address] [place], [address] Platelet mean volume (Bld) [Entitic vol] 8.9 fL Normal 6.2-12.[address] [facility] Comment on above: Performed By: #### L 500.2900, L100.0200, L400.0100 #### [facility] [address] [place], [address] Platelets (Bld) [#/Vol] 315 10*3/uL Normal 150-[address] [facility] Comment on above: Performed By: #### L 500.2900, L100.0200, L400.0100 #### [facility] [address] [place], [address] RBC (Bld) [#/Vol] 4.46 10*6/uL Normal 4.2-5.4 [facility] Comment on above: Performed By: #### L 500.2900, L100.0200, L400.0100 #### [facility] [address] [place], [address] RDW SD 43.7 fl Normal 35.1-43.[address] [facility] Comment on above: Performed By: #### L 500.2900, L100.0200, L400.0100 #### [facility] [address] [place], [address] WBC (Bld) [#/Vol] 6.9 10*3/uL Normal 4.4-11.0 [facility] Comment on above: Performed By: #### L 500.2900, L100.0200, L400.0100 #### [facility] [address] [place], [address] Employee Profile[employer] Cholesterol in LDL [Mass/Vol] 85 mg/dL Normal 0-[address] [facility] Comment on above: Performed By: #### L 500.2900, L100.0200, L400.0100 #### [facility] [address] [place], [address] Urinalysis, Employeeon 08-15 BILIRUBIN URINE Negative Normal Negative [facility] Comment on above: Order Comment: Urine , Random Performed By: #### L 500.2900, L100.0200, L400.0100 #### [facility] [address] [place], [address] Clarity (U) Sl. Cloudy Normal Clear [facility] Comment on above: Order Comment: Urine , Random Performed By: #### L 500.2900, L100.0200, L400.0100 #### [facility] [address] [place], [address] Color (U) Yellow Normal Yellow [facility] Comment on above: Order Comment: Urine , Random Performed By: #### L 500.2900, L100.0200, L400.0100 #### [facility] [address] [place], [address] GLUCOSE, UR Normal Normal Normal [facility] Comment on above: Order Comment: Urine , Random Performed By: #### L 500.2900, L100.0200, L400.0100 #### [facility] [address] [place], [address] KETONE UR Negative Normal Negative [facility] Comment on above: Order Comment: Urine , Random Performed By: #### L 500.2900, L100.0200, L400.0100 #### [facility] [address] [place], [address] LEUK ESTERASE Negative Normal Negative [facility] Comment on above: Order Comment: Urine , Random Performed By: #### L 500.2900, L100.0200, L400.0100 #### [facility] [address] [place], [address] Nitrite Ql (U) Negative Normal Negative [facility] Comment on above: Order Comment: Urine , Random Performed By: #### L 500.2900, L100.0200, L400.0100 #### [facility] [address] [place], [address] OCCULT BLOOD-UR Negative Normal Negative [facility] Comment on above: Order Comment: Urine , Random Performed By: #### L 500.2900, L100.0200, L400.0100 #### [facility] [address] [place], [address] pH UR 7.0 Normal 5.0 - 8.[address] [facility] Comment on above: Order Comment: Urine , Random Performed By: #### L 500.2900, L100.0200, L400.0100 #### [facility] [address] [place], [address] PROT DIPSTX 15 mg/dl Abnormal Negative [facility] Comment on above: Order Comment: Urine , Random Performed By: #### L 500.2900, L100.0200, L400.0100 #### [facility] [address] [place], [address] SP.GR. DIPSTX 1.015 Normal 1.002-1.[address] [facility] Comment on above: Order Comment: Urine , Random Performed By: #### L 500.2900, L100.0200, L400.0100 #### [facility] [address] [place], [address] UROBILI Normal Normal Normal [facility] Comment on above: Order Comment: Urine , Random Performed By: #### L 500.2900, L100.0200, L400.0100 #### [facility] [address] [place], [address] Ferritinon 03-08-2024 Ferritin [Mass/Vol] 181 ng/mL Normal 8-252 [facility] Comment on above: Performed By: #### L 503.6550 #### [facility] [address] [place], [address] Emergency Department Summary on 11-04-2023 Emergency Department Summary [facility] Medical Records Department [address] [place] [address] Emergency Department Summary 11/04/23 MR#: [id number] Acct: [id number] Name: MARINA PAIZ Rep #: [id number] : 1975 48 From: Tyrone Dunlap MD PCP: Dr. Lucia Muir, DO Status:PRE ER Location: ED HPI History of Present Illness Chief Complaint: Rash Detail of Chief Complaint: Rash right side of face superior lateral of the right brow Informant: patient Onset/Context/Timing Onset: Days (Patient states she was bit by ants.) Context: Sudden Onset Timing: Continuous Quality: Redness, swelling Location: Right side of the face near the brow. Current Severity: Mild Maximum Severity: Mild Worsened by: Nothing Relieved by: Nothing Associated Symptoms Associated Symptoms: Lymphadenopathy, denies pain Narrative Narrative: Patient is a 48-year-old female who presents with rash to the right side of her face. This started after she was bit by ants doing garden work. She presents now because of increased swelling with redness and swelling of the right periorbital region. She denies fever, chills night sweats. She denies pain or hyperesthesia. She denies visual disturbance or ocular symptoms. She has no other complaints. Prior similar symptoms: No Recent Illness/Hospitalization: No [facility] Medical History Alcohol use Low iron Hypertension Cardiology follow-up encounter Frequent loose stools Thrombosed external hemorrhoids Depression Wears contact lenses Wears glasses History of echocardiogram Kidney stones Anxiety disorder GERD (gastroesophageal reflux disease) Hypertension Request for sterilization Dysmenorrhea Menorrhagia with regular cycle Home Medications ???Medication ???Instructions ???Recorded ???Last Taken ???Type alprazolam 0.5 mg tablet 0.5 mg PO PRN PRN Anxiety 11/23/15 12/03/20 History cyanocobalamin (vitamin B-12) 1,000 mcg .Route QMONTH 01/07/21 Unknown History 1,000 mcg/mL injection syringe cyclobenzaprine 10 mg tablet 10 mg PO BID PRN muscle spasm #10 04/14/21 Unknown Rx tabs amlodipine 5 mg tablet (Norvasc) 5 mg PO DAILY #90 tabs 04/24/23 Unknown Rx cephalexin 500 mg capsule 500 mg PO Q6 #27 CAPSULES 11/04/23 Unknown Rx Allergy/AdvReac Type Severity Reaction Status Date / Time No Known Allergies Allergy Verified 11/04/23 03:54 Family History Father Hypertension Mother Hypertension Sister Hypertension Surgical History History of hemorrhoidectomy History of hysterectomy History of salpingectomy Hx of fusion of cervical spine History of tonsillectomy Social History Smoking Status: Never smoker alcohol intake: current details: rare substance use type: does not use caffeine: Yes what type of physical activity do you participate in: aerobics and weight training frequency: 3-4 times per week seatbelt use: always do you feel safe at home: Yes additional social history: [facility]-Radiology department ROS ROS ED Constitutional Constitutional ED: Denies chills, fever(s), subjective, sweats or weight loss Eyes Eyes: Reports other Details: Denies photophobia ; Denies blurry vision, change in vision or diplopia ENT ENT ED: Denies ear pain, rhinorrhea or sore throat Gastrointestinal Gastrointestinal: Denies nausea or vomiting Musculoskeletal Musculoskeletal: Reports neck pain; Denies arthralgias or myalgias Integumentary Reports rash EXAM Physical Exam Const Vital Signs: 11/04/23 03:50 Temperature 97.8 F Temperature Source Oral Pulse Rate 61 Respiratory Rate 14 Blood Pressure 148/93 H Blood Pressure Mean 111 Pulse Ox 100 Oxygen Delivery Method Room Air Positive well nourished and well developed General Appearance ED: well developed and NAD; Negative for cyanotic or diaphoretic HEENT Reports moist mucous membranes HEENT Narrative: Patient has redness induration forehead right side of the face superior to the right brow. There is no crusting or herpetic like lesions. There is edema of the upper eyelid minimal lower eyelid. There is no preauricular adenopathy. She does have lymphadenopathy 30 near the angle of the mandible on the right. There is no involvement of the ear. Eyes PERRL and EOMs intact bilaterally Eyes Narrative: Conjunctive is normal. There is no drainage noted. There is no photophobia. General Eye ED: Negative for pale conjunctiva or scleral icterus Neck No no lymphadenopathy, supple and no JVD Neck Narrative: Tenderness over the enlarged lymph nodes near the angle of the mandible on the right. General: tenderness Resp norm (more content not included)... Normal [facility] SCRN MAMM (CAD)W/ALLEN BILATo n 09-23-2023 SCRN MAMM (CAD)W/ALLEN BILAT [facility] Imaging Services [address] [place] [address] SCRN MAMM (CAD)W/ALLEN BILAT MR#: [id number] Acct: [id number] Name: MARINA PAIZ Rep #: [id number] : 1975 F 48 From: Loyd amanda MD PCP: Dr. Lucia Muir DO Status: [facility] Study: SCRN MAMM (CAD)W/ALLEN BILAT Date of Exam: 08/31 06/23 Exam# [id number] Ordering Dr: Lucia Muir DO [id number] MAMMOGRAPHY - BILATERAL SCREENING REASON FOR EXAM: Female, 48 years old. Routine annual screening examination. PERTINENT HISTORY: Grandmother with breast cancer. Aunt with breast cancer. TECHNIQUE: Digital bilateral breast allen (3D mammographic acquisition) in the CC and MLO projections. 2-D mediolateral oblique (MLO) and craniocaudad (CC) views of both breasts were obtained. CAD: Full Field Digital Mammography with Computer Added Detection was performed. COMPARISON: Comparison is made with prior study dated September 10, 2022 and August 14, 2021. FINDINGS: Breast Composition: The breasts are heterogeneously dense, which may obscure small masses. There are no dominant masses or suspicious calcifications. Stable small bilateral benign-appearing axillary lymph nodes. No other significant abnormalities are identified. There has been no significant change since the prior study. BI/SCRN MAMM (CAD)W/ALLEN BILAT IMPRESSION: Stable bilateral screening mammogram. Yearly follow-up mammogram recommended. (A) ASSESSMENT CATEGORY: BIRADS Category 2: Benign. A letter regarding these results will be sent to the patient by the facility within 30 days. Approximately 10% of breast cancers are not detected by mammography. A normal mammogram should not delay biopsy of a clinically suspicious abnormality. [id number] Electronically Signed: Loyd Carrero MD at 14:30 EDT , CC: Dr. Lucia Muir, Signal Processing Engineer: Signed Normal [facility] Absolute lymphocyte countOrd ered By: Dae Long on 06-03-2023 Lymphocytes Auto (Unsp spec) [#/Vol] 1.49 10*3/uL 0.83-4.[address] [facility] Automated lymphocyte count a s percentage of total leukocytesOrdered By: Dae Long on 06-03-2023 Lymphocytes/100 WBC Auto (Unsp spec) 18.9 % 19-[address] [facility] Basophil percentageOrdered B y: Dae Long on 06-03-2023 Basophils/100 WBC (Bld) 0.6 % 0-[address] [facility] Bilirubin [Mass/Vol] 0.70 mg/dL 0.20-1.00 [facility] Comment on above: For patients on eltr ombopag therapy, use of Dimension [place] TBIL is not recommended. Chloride [Moles/Vol] 105 mmol/L 98-107 [facility] Eosinophils/100 WBC (Bld) 1.1 % 0-[address] [facility] Glucose [Mass/Vol] 117 mg/dL 74-106 [facility] Comment on above: Fasting Glucose resu lt from 100 to 125 mg/dL suggests IMPAIRED HOMEOSTASIS per A.D.A. criteria. Hemoglobin (Bld) [Mass/Vol] 15.4 g/dL 12.0-15.[address] [facility] LDH [Catalytic activity/Vol] 231 U/L 84-[address] [facility] Monocytes/100 WBC (Bld) 5.1 % 0-[address] [facility] Neutrophils (Bld) [#/Vol] 5.8 10*3/uL 2.0-7.[address] [facility] Neutrophils/100 WBC (Bld) 74.0 % 47-[address] [facility] Potassium [Moles/Vol] 3.9 mmol/L 3.5-5.[address] [facility] Protein [Mass/Vol] 8.0 g/dL 6.4-8.2 [facility] Sodium [Moles/Vol] 137 mmol/L 136-145 [facility] WBC (Bld) [#/Vol] 7.9 10*3/uL 4.4-11.0 [facility] Determination of erythrocyte mean corpuscular volume (MCV)Ordered By: Dae Long on 06-03-2023 MCV (RBC) [Entitic vol] 98.3 fL 81-[address] [facility] Erythrocyte distribution wid th ratioOrdered By: Dae Long on 06-03-2023 Erythrocyte distribution width (RBC) [Ratio] 12.6 % 11.6-14.[address] [facility] Erythrocyte distribution wid th standard deviationOrdered By: Dae Long on 06-03-2023 Erythrocyte distribution width (RBC) [Entitic vol] 45.6 fL 35.1-43.[address] [facility] Hematocrit Auto (Bld) [Volum e fraction]Ordered By: Dae Long on 06-03-2023 Hematocrit (Bld) [Volume fraction] 45.9 % 37-[address] [facility] Immature granulocytes/100 WB C Auto (Bld)Ordered By: Dae Long on 06-03-2023 Immature granulocytes/100 WBC (Bld) 0.300 % 0.0-0.[address] [facility] Comment on above: IG% - Immature Granu locytes (promyelocytes, myelocytes and metamyelocytes) > 1% indicates that a LEFT SHIFT is Present. Laboratory - Chemistry and C hemistry - challengeOrdered By: Dae Long on 06-03-2023 Albumin/Globulin [Mass ratio] 1.1 {ratio} 0.9-2.[address] [facility] ALP [Catalytic activity/Vol] 86 U/L 45-[address] [facility] ALT [Catalytic activity/Vol] 26 U/L 13-[address] [facility] CO2 [Moles/Vol] 26.0 mmol/L 21.0-32.[address] [facility] Ferritin [Mass/Vol] 164 ng/mL 8-252 [facility] Globulin (S) [Mass/Vol] 3.9 g/dL 2.2-4.[address] [facility] Urea nitrogen/Creatinine [Mass ratio] 19.1 mg/mg 10-[address] [facility] Laboratory - Hematology and Cell countsOrdered By: Dae Long on 06-03-2023 MCH (RBC) [Entitic mass] 33.0 pg 27.0-32.[address] [facility] MCHC (RBC) [Mass/Vol] 33.6 g/dL 32-[address] [facility] Nucleated RBC/100 WBC (Bld) [Ratio] 0 % 0-[address] [facility] Platelet mean volume (Bld) [Entitic vol] 8.7 fL 6.2-12.[address] [facility] Platelets (Bld) [#/Vol] 354 10*3/uL 150-[address] [facility] No Panel InformationOrdered By: Dae Long on 06-03-2023 Estimated GFR (MDRD) Amer 82 mL/min >[address] [facility] Comment on above: GFR Calc Estimated GFR (MDRD) Non-Af Amer 68 mL/min >[address] [facility] Comment on above: Non- GFR Calc RBC Auto (Bld) [#/Vol]Ordere d By: Dae Long on 06-03-2023 RBC (Bld) [#/Vol] 4.67 10*6/uL 4.2-5.4 [facility] Serum or plasma calcium maximilian urement (mass/volume)Ordered By: Dae Long on 06-03-2023 Calcium [Mass/Vol] 9.1 mg/dL 8.5-10.1 [facility] Serum or plasma creatinine m easurement (mass/volume)Ordered By: Dae Long on 06-03-2023 Creatinine [Mass/Vol] 0.94 mg/dL 0.55-1.[address] [facility] Comment on above: The validity of the calculated GFR & GFRAA in patients over 70 years has not been determined. Clinical correlation is essential. Serum or plasma urea nitroge n measurement (mass/volume)Ordered By: Dae Long on 06-03-2023 Urea nitrogen [Mass/Vol] 18 mg/dL 7-[address] [facility] Thin prep Papanicolaou smear with manual screeningOrdered By: Dae Long on 06-03-2023 Thin prep Papanicolaou smear with manual screening 4.1 g/dL 3.2-5.[address] [facility] Thin prep Papanicolaou smear with manual screening 26 U/L 15-[address] [facility] Thin prep Papanicolaou smear with manual screening 6 5-[address] [facility] Absolute lymphocyte countOrd ered By: Lavonne Albert on 03-03-2023 Lymphocytes Auto (Unsp spec) [#/Vol] 1.72 10*3/uL 0.83-4.[address] [facility] Basophil percentageOrdered B y: Lavonne Albert on 03-03-2023 Basophils/100 WBC (Bld) 0.5 % 0-[address] [facility] Bilirubin [Mass/Vol] 0.30 mg/dL 0.20-1.00 [facility] Comment on above: For patients on eltr ombopag therapy, use of Dimension [place] TBIL is not recommended. Chloride [Moles/Vol] 104 mmol/L 98-107 [facility] Eosinophils/100 WBC (Bld) 0.9 % 0-[address] [facility] Glucose [Mass/Vol] 117 mg/dL 74-106 [facility] Comment on above: Fasting Glucose resu lt from 100 to 125 mg/dL suggests IMPAIRED HOMEOSTASIS per A.D.A. criteria. LDH [Catalytic activity/Vol] 242 U/L 84-[address] [facility] Neutrophils (Bld) [#/Vol] 5.2 10*3/uL 2.0-7.[address] [facility] Neutrophils/100 WBC (Bld) 68.2 % 47-[address] [facility] Potassium [Moles/Vol] 3.8 mmol/L 3.5-5.[address] [facility] Protein [Mass/Vol] 7.3 g/dL 6.4-8.2 [facility] Sodium [Moles/Vol] 136 mmol/L 136-145 [facility] WBC (Bld) [#/Vol] 7.6 10*3/uL 4.4-11.0 [facility] Blood erythrocytes count (nu mber/volume)Ordered By: Lavonne Albert on 03-03-2023 RBC (Bld) [#/Vol] 4.29 10*6/uL 4.2-5.4 [facility] Blood hemoglobin measurement (mass/volume)Ordered By: Lavonne Albert on 03-03-2023 Hemoglobin (Bld) [Mass/Vol] 13.7 g/dL 12.0-15.[address] [facility] Blood lymphocytes/100 leukoc ytesOrdered By: Lavonne Albert on 03-03-2023 Lymphocytes/100 WBC (Bld) 22.6 % 19-[address] [facility] Blood monocytes/100 leukocyt esOrdered By: Lavonne Albert on 03-03-2023 Monocytes/100 WBC (Bld) 7.5 % 0-[address] [facility] Blood platelet mean volumeOr dered By: Lavonne Albert on 03-03-2023 Platelet mean volume (Bld) [Entitic vol] 9.1 fL 6.2-12.[address] [facility] Determination of erythrocyte mean corpuscular volume (MCV)Ordered By: Lavonne Albert on 03-03-2023 MCV (RBC) [Entitic vol] 98.1 fL 81-[address] [facility] Hematocrit Auto (Bld) [Volum e fraction]Ordered By: Lavonne Albert on 03-03-2023 Hematocrit (Bld) [Volume fraction] 42.1 % 37-[address] [facility] Laboratory - Chemistry and C hemistry - challengeOrdered By: Lavonne Albert on 03-03-2023 ALP [Catalytic activity/Vol] 97 U/L 45-[address] [facility] ALT [Catalytic activity/Vol] 42 U/L 13-[address] [facility] CO2 [Moles/Vol] 29.0 mmol/L 21.0-32.[address] [facility] Globulin (S) [Mass/Vol] 3.6 g/dL 2.2-4.[address] [facility] Urea nitrogen/Creatinine [Mass ratio] 9.4 mg/mg 10-[address] [facility] Laboratory - Hematology and Cell countsOrdered By: Lavonne Albert on 03-03-2023 Erythrocyte distribution width (RBC) [Entitic vol] 44.3 fL 35.1-43.[address] [facility] Erythrocyte distribution width (RBC) [Ratio] 12.2 % 11.6-14.[address] [facility] Immature granulocytes/100 WBC (Bld) 0.300 % 0.0-0.[address] [facility] Comment on above: IG% - Immature Granu locytes (promyelocytes, myelocytes and metamyelocytes) > 1% indicates that a LEFT SHIFT is Present. MCH (RBC) [Entitic mass] 31.9 pg 27.0-32.[address] [facility] Nucleated RBC/100 WBC (Bld) [Ratio] 0 % 0-[address] [facility] MCHC Auto (RBC) [Mass/Vol]Or dered By: Lavonne Albert on 03-03-2023 MCHC (RBC) [Mass/Vol] 32.5 g/dL 32-[address] [facility] No Panel InformationOrdered By: Lavonne Albert on 03-03-2023 Estimated GFR (MDRD) Amer 58 mL/min >[address] [facility] Comment on above: GFR Calc Estimated GFR (MDRD) Non-Af Amer 48 mL/min >[address] [facility] Comment on above: Non- GFR Calc Platelets bldOrdered By: Dieudonne Albert on 03-03-2023 Platelets (Bld) [#/Vol] 356 10*3/uL 150-[address] [facility] Serum or plasma albumin maximilian urement (mass/volume)Ordered By: Lavonne Albert on 03-03-2023 Albumin [Mass/Vol] 3.7 g/dL 3.2-5.0 [facility] Serum or plasma albumin/glob ulin mass ratioOrdered By: Lavonne Albert on 03-03-2023 Albumin/Globulin [Mass ratio] 1.0 {ratio} 0.9-2.[address] [facility] Serum or plasma [id number] protein tumor marker measurement (units/volume)Ordered By: Lavonne Albert on 03-03-2023 AFP.tumor marker Qn < 1.8 ng/mL 0.0-6.4 [facility] Comment on above: [facility] El ectrochemiluminescence Immunoassay(ECLIA)Values obtained with different assay methods or kits cannotbe used interchangeably. Results cannot be interpreted asabsolute evidence of the presence or absence of malignantdisease.This test is not interpretable in females.Performed at: [facility] [id number] Director: Daniel Valenzuela PhD, Phone: [phone] Serum or plasma calcium maximilian urement (mass/volume)Ordered By: Lavonne Albert on 03-03-2023 Calcium [Mass/Vol] 9.1 mg/dL 8.5-10.1 [facility] Serum or plasma creatinine m easurement (mass/volume)Ordered By: Lavonne Albert on 03-03-2023 Creatinine [Mass/Vol] 1.27 mg/dL 0.55-1.[address] [facility] Comment on above: The validity of the calculated GFR & GFRAA in patients over 70 years has not been determined. Clinical correlation is essential. Serum or plasma ferritin ankur surement (mass/volume)Ordered By: Lavonne Albert on 03-03-2023 Ferritin [Mass/Vol] 181 ng/mL 8-252 [facility] Serum or plasma urea nitroge n measurement (mass/volume)Ordered By: Lavonne Albert on 03-03-2023 Urea nitrogen [Mass/Vol] 12 mg/dL 7-[address] [facility] Thin prep Papanicolaou smear with manual screeningOrdered By: Lavonne Albert on 03-03-2023 Thin prep Papanicolaou smear with manual screening 94 U/L 15-[address] [facility] Thin prep Papanicolaou smear with manual screening 3 5-[address] [facility] Absolute lymphocyte countOrd ered By: Dae Long on 12-01-2022 Lymphocytes Auto (Unsp spec) [#/Vol] 1.76 10*3/uL 0.83-4.[address] [facility] Basophil percentageOrdered B y: Dae Long on 12-01-2022 Basophils/100 WBC (Bld) 0.6 % 0-[address] [facility] Bilirubin [Mass/Vol] 0.50 mg/dL 0.20-1.00 [facility] Comment on above: For patients on eltr ombopag therapy, use of Dimension [place] TBIL is not recommended. Chloride [Moles/Vol] 105 mmol/L 98-107 [facility] Eosinophils/100 WBC (Bld) 1.0 % 0-[address] [facility] Glucose [Mass/Vol] 99 mg/dL 74-106 [facility] LDH [Catalytic activity/Vol] 230 U/L 84-[address] [facility] Comment on above: Slight Hemolysis, Re sult may be falsely increased. Neutrophils (Bld) [#/Vol] 4.7 10*3/uL 2.0-7.[address] [facility] Neutrophils/100 WBC (Bld) 65.9 % 47-[address] [facility] Potassium [Moles/Vol] 3.9 mmol/L 3.5-5.[address] [facility] Comment on above: Slight Hemolysis, Re sult may be falsely increased. Protein [Mass/Vol] 7.4 g/dL 6.4-8.2 [facility] Sodium [Moles/Vol] 139 mmol/L 136-145 [facility] WBC (Bld) [#/Vol] 7.1 10*3/uL 4.4-11.0 [facility] Blood erythrocytes count (nu mber/volume)Ordered By: Dae Long on 12-01-2022 RBC (Bld) [#/Vol] 4.52 10*6/uL 4.2-5.4 [facility] Blood hemoglobin measurement (mass/volume)Ordered By: Dae Long on 12-01-2022 Hemoglobin (Bld) [Mass/Vol] 14.8 g/dL 12.0-15.[address] [facility] Blood lymphocytes/100 leukoc ytesOrdered By: Dae Long on 12-01-2022 Lymphocytes/100 WBC (Bld) 25.0 % 19-[address] [facility] Blood monocytes/100 leukocyt esOrdered By: Dae Long on 12-01-2022 Monocytes/100 WBC (Bld) 7.4 % 0-[address] [facility] Blood platelet mean volumeOr dered By: Dae Long on 12-01-2022 Platelet mean volume (Bld) [Entitic vol] 9.1 fL 6.2-12.[address] [facility] Determination of erythrocyte mean corpuscular volume (MCV)Ordered By: Dae Long on 12-01-2022 MCV (RBC) [Entitic vol] 98.7 fL 81-[address] [facility] Hematocrit Auto (Bld) [Volum e fraction]Ordered By: Dae Long on 12-01-2022 Hematocrit (Bld) [Volume fraction] 44.6 % 37-[address] [facility] Laboratory - Chemistry and C hemistry - challengeOrdered By: Dae Long on 12-01-2022 ALP [Catalytic activity/Vol] 79 U/L 45-[address] [facility] ALT [Catalytic activity/Vol] 22 U/L 13-[address] [facility] CO2 [Moles/Vol] 27.0 mmol/L 21.0-32.[address] [facility] Globulin (S) [Mass/Vol] 3.6 g/dL 2.2-4.[address] [facility] Urea nitrogen/Creatinine [Mass ratio] 14.7 mg/mg 10-[address] [facility] Laboratory - Hematology and Cell countsOrdered By: Dae Long on 12-01-2022 Erythrocyte distribution width (RBC) [Entitic vol] 43.2 fL 35.1-43.[address] [facility] Erythrocyte distribution width (RBC) [Ratio] 11.8 % 11.6-14.[address] [facility] Immature granulocytes/100 WBC (Bld) 0.100 % 0.0-0.[address] [facility] Comment on above: IG% - Immature Granu locytes (promyelocytes, myelocytes and metamyelocytes) > 1% indicates that a LEFT SHIFT is Present. MCH (RBC) [Entitic mass] 32.7 pg 27.0-32.[address] [facility] Nucleated RBC/100 WBC (Bld) [Ratio] 0 % 0-[address] [facility] MCHC Auto (RBC) [Mass/Vol]Or dered By: Dae Long on 12-01-2022 MCHC (RBC) [Mass/Vol] 33.2 g/dL 32-[address] [facility] No Panel InformationOrdered By: Dae Long on 12-01-2022 Estimated GFR (MDRD) Amer 65 mL/min >[address] [facility] Comment on above: GFR Calc Estimated GFR (MDRD) Non-Af Amer 53 mL/min >[address] [facility] Comment on above: Non- GFR Calc Platelets bldOrdered By: Clayton Long on 12-01-2022 Platelets (Bld) [#/Vol] 374 10*3/uL 150-[address] [facility] Serum or plasma albumin maximilian urement (mass/volume)Ordered By: Dae Long on 12-01-2022 Albumin [Mass/Vol] 3.8 g/dL 3.2-5.0 [facility] Serum or plasma albumin/glob ulin mass ratioOrdered By: Dae Long on 12-01-2022 Albumin/Globulin [Mass ratio] 1.1 {ratio} 0.9-2.[address] [facility] Serum or plasma calcium maximilian urement (mass/volume)Ordered By: Dae Long on 12-01-2022 Calcium [Mass/Vol] 8.9 mg/dL 8.5-10.1 [facility] Serum or plasma creatinine m easurement (mass/volume)Ordered By: Dae Long on 12-01-2022 Creatinine [Mass/Vol] 1.16 mg/dL 0.55-1.[address] [facility] Comment on above: The validity of the calculated GFR & GFRAA in patients over 70 years has not been determined. Clinical correlation is essential. Serum or plasma ferritin ankur surement (mass/volume)Ordered By: Dae Long on 12-01-2022 Ferritin [Mass/Vol] 145 ng/mL 8-252 [facility] Serum or plasma urea nitroge n measurement (mass/volume)Ordered By: Dae Long on 12-01-2022 Urea nitrogen [Mass/Vol] 17 mg/dL 7-[address] [facility] Thin prep Papanicolaou smear with manual screeningOrdered By: Dae Long on 12-01-2022 Thin prep Papanicolaou smear with manual screening 26 U/L 15-[address] [facility] Comment on above: Slight Hemolysis, Re sult may be falsely increased. Thin prep Papanicolaou smear with manual screening 7 5-[address] [facility] Absolute lymphocyte countOrd ered By: Lavonne Albert on 10-06-2022 Lymphocytes Auto (Unsp spec) [#/Vol] 1.39 10*3/uL 0.83-4.[address] [facility] Basophil percentageOrdered B y: Lavonne Albert on 10-06-2022 Basophils/100 WBC (Bld) 0.6 % 0-[address] [facility] Bilirubin [Mass/Vol] 0.90 mg/dL 0.20-1.00 [facility] Comment on above: For patients on eltr ombopag therapy, use of Dimension [place] TBIL is not recommended. Chloride [Moles/Vol] 102 mmol/L 98-107 [facility] Eosinophils/100 WBC (Bld) 1.2 % 0-[address] [facility] Glucose [Mass/Vol] 107 mg/dL 74-106 [facility] Comment on above: Fasting Glucose resu lt from 100 to 125 mg/dL suggests IMPAIRED HOMEOSTASIS per A.D.A. criteria. Neutrophils (Bld) [#/Vol] 4.4 10*3/uL 2.0-7.[address] [facility] Neutrophils/100 WBC (Bld) 67.6 % 47-[address] [facility] Potassium [Moles/Vol] 3.5 mmol/L 3.5-5.[address] [facility] Protein [Mass/Vol] 7.4 g/dL 6.4-8.2 [facility] Sodium [Moles/Vol] 137 mmol/L 136-145 [facility] WBC (Bld) [#/Vol] 6.5 10*3/uL 4.4-11.0 [facility] Blood erythrocytes count (nu mber/volume)Ordered By: Lavonne Albert on 10-06-2022 RBC (Bld) [#/Vol] 4.48 10*6/uL 4.2-5.4 [facility] Blood hemoglobin measurement (mass/volume)Ordered By: Lavonne Albert on 10-06-2022 Hemoglobin (Bld) [Mass/Vol] 14.9 g/dL 12.0-15.[address] [facility] Blood lymphocytes/100 leukoc ytesOrdered By: Lavonne Albert on 10-06-2022 Lymphocytes/100 WBC (Bld) 21.3 % 19-[address] [facility] Blood monocytes/100 leukocyt esOrdered By: Lavonne Albert on 10-06-2022 Monocytes/100 WBC (Bld) 9.0 % 0-[address] [facility] Blood platelet mean volumeOr dered By: Lavonne Albert on 10-06-2022 Platelet mean volume (Bld) [Entitic vol] 8.7 fL 6.2-12.[address] [facility] Determination of erythrocyte mean corpuscular volume (MCV)Ordered By: Lavonne Albert on 10-06-2022 MCV (RBC) [Entitic vol] 96.0 fL 81-[address] [facility] Hematocrit Auto (Bld) [Volum e fraction]Ordered By: Lavonne Bety on 10-06-2022 Hematocrit (Bld) [Volume fraction] 43.0 % 37-[address] [facility] Laboratory - Chemistry and C hemistry - challengeOrdered By: [facility] Bety on 10-06-2022 ALP [Catalytic activity/Vol] 96 U/L 45-[address] [facility] ALT [Catalytic activity/Vol] 37 U/L 13-[address] [facility] CO2 [Moles/Vol] 30.0 mmol/L 21.0-32.[address] [facility] Globulin (S) [Mass/Vol] 3.5 g/dL 2.2-4.[address] [facility] Urea nitrogen/Creatinine [Mass ratio] 14.6 mg/mg 10-[address] [facility] Laboratory - Hematology and Cell countsOrdered By: [facility] Erythrocyte distribution width (RBC) [Entitic vol] 41.6 fL 35.1-43.[address] [facility] Erythrocyte distribution width (RBC) [Ratio] 11.9 % 11.6-14.[address] [facility] Immature granulocytes/100 WBC (Bld) 0.300 % 0.0-0.[address] [facility] Comment on above: IG% - Immature Granu locytes (promyelocytes, myelocytes and metamyelocytes) > 1% indicates that a LEFT SHIFT is Present. MCH (RBC) [Entitic mass] 33.3 pg 27.0-32.[address] [facility] Nucleated RBC/100 WBC (Bld) [Ratio] 0 % 0-[address] [facility] MCHC Auto (RBC) [Mass/Vol]Or dered By: Lavonne Albert on 10-06-2022 MCHC (RBC) [Mass/Vol] 34.7 g/dL 32-[address] [facility] No Panel InformationOrdered By: Lavonne Albert on 10-06-2022 Estimated GFR (MDRD) Amer 106 mL/min >[address] [facility] Comment on above: GFR Calc Estimated GFR (MDRD) Non-Af Amer 88 mL/min >[address] [facility] Comment on above: Non- GFR Calc Platelets bldOrdered By: Dieudonne Albert on 10-06-2022 Platelets (Bld) [#/Vol] 308 10*3/uL 150-[address] [facility] Serum or plasma albumin maximilian urement (mass/volume)Ordered By: Lavonne Albert on 10-06-2022 Albumin [Mass/Vol] 3.9 g/dL 3.2-5.0 [facility] Serum or plasma albumin/glob ulin mass ratioOrdered By: Lavonne Albert on 10-06-2022 Albumin/Globulin [Mass ratio] 1.1 {ratio} 0.9-2.[address] [facility] Serum or plasma [id number] protein tumor marker measurement (units/volume)Ordered By: Lavonne Albert on 10-06-2022 AFP.tumor marker Qn 2.6 ng/mL 0.0-6.4 [facility] Comment on above: [facility] El ectrochemiluminescence Immunoassay(ECLIA)Values obtained with different assay methods or kits cannotbe used interchangeably. Results cannot be interpreted asabsolute evidence of the presence or absence of malignantdisease.This test is not interpretable in females.Performed at: [facility] [address] [id number] Director: Daniel Valenzuela PhD, Phone: [phone] Serum or plasma calcium maximilian urement (mass/volume)Ordered By: Lavonne Albert on 10-06-2022 Calcium [Mass/Vol] 9.1 mg/dL 8.5-10.1 [facility] Serum or plasma creatinine m easurement (mass/volume)Ordered By: Lavonne Albert on 10-06-2022 Creatinine [Mass/Vol] 0.76 mg/dL 0.55-1.[address] [facility] Comment on above: The validity of the calculated GFR & GFRAA in patients over 70 years has not been determined. Clinical correlation is essential. Serum or plasma ferritin ankur surement (mass/volume)Ordered By: Lavonne Albert on 10-06-2022 Ferritin [Mass/Vol] 173 ng/mL 8252 [facility] Serum or plasma urea nitroge n measurement (mass/volume)Ordered By: Lavonne Albert on 10-06-2022 Urea nitrogen [Mass/Vol] 11 mg/dL 7-[address] [facility] Thin prep Papanicolaou smear with manual screeningOrdered By: Lavonne Albert on 10-06-2022 Thin prep Papanicolaou smear with manual screening 29 U/L 15-[address] [facility] Thin prep Papanicolaou smear with manual screening 5 5-[address] [facility] Absolute lymphocyte countOrd ered By: Dae Long on 08-11-2022 Lymphocytes Auto (Unsp spec) [#/Vol] 1.80 10*3/uL 0.83-4.[address] [facility] Basophil percentageOrdered B y: Dae Long on 08-11-2022 Basophils/100 WBC (Bld) 0.6 % 0-[address] [facility] Bilirubin [Mass/Vol] 0.60 mg/dL 0.20-1.00 [facility] Comment on above: For patients on eltr ombopag therapy, use of Dimension [place] TBIL is not recommended. Chloride [Moles/Vol] 102 mmol/L 98-107 [facility] Eosinophils/100 WBC (Bld) 1.1 % 0-[address] [facility] Glucose [Mass/Vol] 120 mg/dL 74-106 [facility] Comment on above: Fasting Glucose resu lt from 100 to 125 mg/dL suggests IMPAIRED HOMEOSTASIS per A.D.A. criteria. Neutrophils (Bld) [#/Vol] 3.9 10*3/uL 2.0-7.[address] [facility] Neutrophils/100 WBC (Bld) 62.3 % 47-[address] [facility] Potassium [Moles/Vol] 3.7 mmol/L 3.5-5.[address] [facility] Protein [Mass/Vol] 7.5 g/dL 6.4-8.2 [facility] Sodium [Moles/Vol] 136 mmol/L 136-145 [facility] WBC (Bld) [#/Vol] 6.2 10*3/uL 4.4-11.0 [facility] Blood erythrocytes count (nu mber/volume)Ordered By: Dae Long on 08-11-2022 RBC (Bld) [#/Vol] 4.25 10*6/uL 4.2-5.4 [facility] Blood hemoglobin measurement (mass/volume)Ordered By: Dae Long on 08-11-2022 Hemoglobin (Bld) [Mass/Vol] 14.1 g/dL 12.0-15.[address] [facility] Blood lymphocytes/100 leukoc ytesOrdered By: Dae Long on 08-11-2022 Lymphocytes/100 WBC (Bld) 28.8 % 19-[address] [facility] Blood monocytes/100 leukocyt esOrdered By: Dae Long on 08-11-2022 Monocytes/100 WBC (Bld) 6.9 % 0-[address] [facility] Blood platelet mean volumeOr dered By: Dae Long on 08-11-2022 Platelet mean volume (Bld) [Entitic vol] 9.0 fL 6.2-12.[address] [facility] Determination of erythrocyte mean corpuscular volume (MCV)Ordered By: Dae Long on 08-11-2022 MCV (RBC) [Entitic vol] 99.3 fL 81-[address] [facility] Hematocrit Auto (Bld) [Volum e fraction]Ordered By: Dae Long on 08-11-2022 Hematocrit (Bld) [Volume fraction] 42.2 % 37-[address] [facility] Laboratory - Chemistry and C hemistry - challengeOrdered By: Dae Long on 08-11-2022 ALP [Catalytic activity/Vol] 82 U/L 45-[address] [facility] ALT [Catalytic activity/Vol] 28 U/L 13-[address] [facility] CO2 [Moles/Vol] 27.0 mmol/L 21.0-32.[address] [facility] Globulin (S) [Mass/Vol] 3.6 g/dL 2.2-4.[address] [facility] Urea nitrogen/Creatinine [Mass ratio] 17.2 mg/mg 10-[address] [facility] Laboratory - Hematology and Cell countsOrdered By: Dae Long on 08-11-2022 Erythrocyte distribution width (RBC) [Entitic vol] 42.8 fL 35.1-43.[address] [facility] Erythrocyte distribution width (RBC) [Ratio] 11.7 % 11.6-14.[address] [facility] Immature granulocytes/100 WBC (Bld) 0.300 % 0.0-0.[address] [facility] Comment on above: IG% - Immature Granu locytes (promyelocytes, myelocytes and metamyelocytes) > 1% indicates that a LEFT SHIFT is Present. MCH (RBC) [Entitic mass] 33.2 pg 27.0-32.[address] [facility] Nucleated RBC/100 WBC (Bld) [Ratio] 0 % 0-[address] [facility] MCHC Auto (RBC) [Mass/Vol]Or dered By: Dae Long on 08-11-2022 MCHC (RBC) [Mass/Vol] 33.4 g/dL 32-[address] [facility] No Panel InformationOrdered By: Dae Long on 08-11-2022 Estimated GFR (MDRD) Amer 106 mL/min >[address] [facility] Comment on above: GFR Calc Estimated GFR (MDRD) Non-Af Amer 88 mL/min >[address] [facility] Comment on above: Non- GFR Calc Platelets bldOrdered By: Clayton Long on 08-11-2022 Platelets (Bld) [#/Vol] 323 10*3/uL 150-[address] [facility] Serum or plasma albumin maximilian urement (mass/volume)Ordered By: Dae Long on 08-11-2022 Albumin [Mass/Vol] 3.9 g/dL 3.2-5.0 [facility] Serum or plasma albumin/glob ulin mass ratioOrdered By: Dae Long on 08-11-2022 Albumin/Globulin [Mass ratio] 1.1 {ratio} 0.9-2.[address] [facility] Serum or plasma calcium maximilian urement (mass/volume)Ordered By: Dae Long on 08-11-2022 Calcium [Mass/Vol] 9.1 mg/dL 8.5-10.1 [facility] Serum or plasma creatinine m easurement (mass/volume)Ordered By: Dae Long on 08-11-2022 Creatinine [Mass/Vol] 0.76 mg/dL 0.55-1.[address] [facility] Comment on above: The validity of the calculated GFR & GFRAA in patients over 70 years has not been determined. Clinical correlation is essential. Serum or plasma ferritin ankur surement (mass/volume)Ordered By: Dae Long on 08-11-2022 Ferritin [Mass/Vol] 115 ng/mL 8-252 [facility] Serum or plasma urea nitroge n measurement (mass/volume)Ordered By: Dae Long on 08-11-2022 Urea nitrogen [Mass/Vol] 13 mg/dL 7-[address] [facility] Thin prep Papanicolaou smear with manual screeningOrdered By: Dae Long on 08-11-2022 Thin prep Papanicolaou smear with manual screening 22 U/L 15-[address] [facility] Thin prep Papanicolaou smear with manual screening 7 5-[address] [facility] Absolute lymphocyte countOrd ered By: Dr. Long on 06-09-2022 Lymphocytes Auto (Unsp spec) [#/Vol] 1.55 10*3/uL 0.83-4.[address] [facility] Basophil percentageOrdered B y: Dr. Long on 06-09-2022 Basophils/100 WBC (Bld) 0.5 % 0-[address] [facility] Bilirubin [Mass/Vol] 0.90 mg/dL 0.20-1.00 [facility] Comment on above: For patients on eltr ombopag therapy, use of Dimension [place] TBIL is not recommended. Chloride [Moles/Vol] 102 mmol/L 98-107 [facility] Eosinophils/100 WBC (Bld) 1.3 % 0-[address] [facility] Glucose [Mass/Vol] 132 mg/dL 74-106 [facility] Comment on above: Fasting Glucose resu lt greater than or equal to 126 mg/dL suggests DIABETES MELLITUS per A.D.A. criteria. Neutrophils (Bld) [#/Vol] 4.2 10*3/uL 2.0-7.[address] [facility] Neutrophils/100 WBC (Bld) 66.1 % 47-[address] [facility] Potassium [Moles/Vol] 3.5 mmol/L 3.5-5.[address] [facility] Protein [Mass/Vol] 7.4 g/dL 6.4-8.2 [facility] Sodium [Moles/Vol] 135 mmol/L 136-145 [facility] WBC (Bld) [#/Vol] 6.4 10*3/uL 4.4-11.0 [facility] Blood erythrocytes count (nu mber/volume)Ordered By: Dr. Long on 06-09-2022 RBC (Bld) [#/Vol] 4.34 10*6/uL 4.2-5.4 [facility] Blood hemoglobin measurement (mass/volume)Ordered By: Dr. Long on 06-09-2022 Hemoglobin (Bld) [Mass/Vol] 14.3 g/dL 12.0-15.[address] [facility] Blood lymphocytes/100 leukoc ytesOrdered By: Dr. Long on 06-09-2022 Lymphocytes/100 WBC (Bld) 24.2 % 19-[address] [facility] Blood monocytes/100 leukocyt esOrdered By: Dr. Long on 06-09-2022 Monocytes/100 WBC (Bld) 7.7 % 0-[address] [facility] Blood platelet mean volumeOr dered By: Dr. Long on 06-09-2022 Platelet mean volume (Bld) [Entitic vol] 9.6 fL 6.2-12.[address] [facility] Determination of erythrocyte mean corpuscular volume (MCV)Ordered By: Dr. Long on 06-09-2022 MCV (RBC) [Entitic vol] 98.8 fL 81-[address] [facility] Hematocrit Auto (Bld) [Volum e fraction]Ordered By: Dr. Long on 06-09-2022 Hematocrit (Bld) [Volume fraction] 42.9 % 37-[address] [facility] Laboratory - Chemistry and C hemistry - challengeOrdered By: Dr. Long on 06-09-2022 ALP [Catalytic activity/Vol] 78 U/L 45-[address] [facility] ALT [Catalytic activity/Vol] 23 U/L 13-[address] [facility] CO2 [Moles/Vol] 29.0 mmol/L 21.0-32.[address] [facility] Globulin (S) [Mass/Vol] 3.6 g/dL 2.2-4.[address] [facility] Urea nitrogen/Creatinine [Mass ratio] 16.1 mg/mg 10-[address] [facility] Laboratory - Hematology and Cell countsOrdered By: Dr. Long on 06-09-2022 Erythrocyte distribution width (RBC) [Entitic vol] 43.7 fL 35.1-43.[address] [facility] Erythrocyte distribution width (RBC) [Ratio] 11.9 % 11.6-14.[address] [facility] Immature granulocytes/100 WBC (Bld) 0.200 % 0.0-0.[address] [facility] Comment on above: IG% - Immature Granu locytes (promyelocytes, myelocytes and metamyelocytes) > 1% indicates that a LEFT SHIFT is Present. MCH (RBC) [Entitic mass] 32.9 pg 27.0-32.[address] [facility] Nucleated RBC/100 WBC (Bld) [Ratio] 0 % 0-[address] [facility] MCHC Auto (RBC) [Mass/Vol]Or dered By: Dr. Long on 06-09-2022 MCHC (RBC) [Mass/Vol] 33.3 g/dL 32-[address] [facility] No Panel InformationOrdered By: Dr. Long on 06-09-2022 Estimated GFR (MDRD) Amer 99 mL/min >[address] [facility] Comment on above: GFR Calc Estimated GFR (MDRD) Non-Af Amer 82 mL/min >[address] [facility] Comment on above: Non- GFR Calc Platelets bldOrdered By: Dr. Long on 06-09-2022 Platelets (Bld) [#/Vol] 408 10*3/uL 150-[address] [facility] Serum or plasma albumin maximilian urement (mass/volume)Ordered By: Dr. Long on 06-09-2022 Albumin [Mass/Vol] 3.8 g/dL 3.2-5.0 [facility] Serum or plasma albumin/glob ulin mass ratioOrdered By: Dr. Long on 06-09-2022 Albumin/Globulin [Mass ratio] 1.1 {ratio} 0.9-2.[address] [facility] Serum or plasma calcium maximilian urement (mass/volume)Ordered By: Dr. Long on 06-09-2022 Calcium [Mass/Vol] 9.0 mg/dL 8.5-10.1 [facility] Serum or plasma creatinine m easurement (mass/volume)Ordered By: Dr. Long on 06-09-2022 Creatinine [Mass/Vol] 0.80 mg/dL 0.55-1.[address] [facility] Comment on above: The validity of the calculated GFR & GFRAA in patients over 70 years has not been determined. Clinical correlation is essential. Serum or plasma ferritin ankur surement (mass/volume)Ordered By: Dr. Long on 06-09-2022 Ferritin [Mass/Vol] 159 ng/mL 8-252 [facility] Serum or plasma urea nitroge n measurement (mass/volume)Ordered By: Dr. Long on 06-09-2022 Urea nitrogen [Mass/Vol] 13 mg/dL 7-[address] [facility] Thin prep Papanicolaou smear with manual screeningOrdered By: Dr. Long on 06-09-2022 Thin prep Papanicolaou smear with manual screening 24 U/L 15-[address] [facility] Thin prep Papanicolaou smear with manual screening 4 5-[address] [facility] Absolute lymphocyte countOrd ered By: Dr. Long on 04-14-2022 Lymphocytes Auto (Unsp spec) [#/Vol] 1.98 10*3/uL 0.83-4.[address] [facility] Basophil percentageOrdered B y: Dr. Long on 04-14-2022 Basophils/100 WBC (Bld) 0.4 % 0-[address] [facility] Bilirubin [Mass/Vol] 0.70 mg/dL 0.20-1.00 [facility] Comment on above: For patients on eltr ombopag therapy, use of Dimension [place] TBIL is not recommended. Chloride [Moles/Vol] 102 mmol/L 98-107 [facility] Eosinophils/100 WBC (Bld) 0.7 % 0-[address] [facility] Glucose [Mass/Vol] 101 mg/dL 74-106 [facility] Comment on above: Fasting Glucose resu lt from 100 to 125 mg/dL suggests IMPAIRED HOMEOSTASIS per A.D.A. criteria. LDH [Catalytic activity/Vol] 163 U/L 84-[address] [facility] Neutrophils (Bld) [#/Vol] 4.4 10*3/uL 2.0-7.[address] [facility] Neutrophils/100 WBC (Bld) 62.4 % 47-[address] [facility] Potassium [Moles/Vol] 3.9 mmol/L 3.5-5.[address] [facility] Protein [Mass/Vol] 7.4 g/dL 6.4-8.2 [facility] Sodium [Moles/Vol] 137 mmol/L 136-145 [facility] WBC (Bld) [#/Vol] 7.1 10*3/uL 4.4-11.0 [facility] Blood erythrocytes count (nu mber/volume)Ordered By: Dr. Long on 04-14-2022 RBC (Bld) [#/Vol] 4.43 10*6/uL 4.2-5.4 [facility] Blood hemoglobin measurement (mass/volume)Ordered By: Dr. Long on 04-14-2022 Hemoglobin (Bld) [Mass/Vol] 14.7 g/dL 12.0-15.[address] [facility] Blood lymphocytes/100 leukoc ytesOrdered By: Dr. Long on 04-14-2022 Lymphocytes/100 WBC (Bld) 27.8 % 19-[address] [facility] Blood monocytes/100 leukocyt esOrdered By: Dr. Long on 04-14-2022 Monocytes/100 WBC (Bld) 8.4 % 0-[address] [facility] Blood platelet mean volumeOr dered By: Dr. Long on 04-14-2022 Platelet mean volume (Bld) [Entitic vol] 8.9 fL 6.2-12.[address] [facility] Determination of erythrocyte mean corpuscular volume (MCV)Ordered By: Dr. Long on 04-14-2022 MCV (RBC) [Entitic vol] 98.0 fL 81-[address] [facility] Hematocrit Auto (Bld) [Volum e fraction]Ordered By: Dr. Long on 04-14-2022 Hematocrit (Bld) [Volume fraction] 43.4 % 37-[address] [facility] Iron measurement (mass/mass) Ordered By: Dr. Long on 04-14-2022 Iron (Unsp spec) [Mass/Mass] 249 ug/dL 50-[address] [facility] Laboratory - Chemistry and C hemistry - challengeOrdered By: Dr. Long on 04-14-2022 ALP [Catalytic activity/Vol] 77 U/L 45-[address] [facility] ALT [Catalytic activity/Vol] 20 U/L 13-[address] [facility] CO2 [Moles/Vol] 31.0 mmol/L 21.0-32.[address] [facility] Globulin (S) [Mass/Vol] 3.4 g/dL 2.2-4.[address] [facility] Urea nitrogen/Creatinine [Mass ratio] 17.3 mg/mg 10-[address] [facility] Laboratory - Hematology and Cell countsOrdered By: Dr. Long on 04-14-2022 Erythrocyte distribution width (RBC) [Entitic vol] 42.1 fL 35.1-43.[address] [facility] Erythrocyte distribution width (RBC) [Ratio] 11.6 % 11.6-14.[address] [facility] Immature granulocytes/100 WBC (Bld) 0.300 % 0.0-0.[address] [facility] Comment on above: IG% - Immature Granu locytes (promyelocytes, myelocytes and metamyelocytes) > 1% indicates that a LEFT SHIFT is Present. MCH (RBC) [Entitic mass] 33.2 pg 27.0-32.[address] [facility] Nucleated RBC/100 WBC (Bld) [Ratio] 0 % 0-[address] [facility] MCHC Auto (RBC) [Mass/Vol]Or dered By: Dr. Long on 04-14-2022 MCHC (RBC) [Mass/Vol] 33.9 g/dL 32-[address] [facility] No Panel InformationOrdered By: Dr. Long on 04-14-2022 Estimated GFR (MDRD) Amer 117 mL/min >[address] [facility] Comment on above: GFR Calc Estimated GFR (MDRD) Non-Af Amer 97 mL/min >[address] [facility] Comment on above: Non- GFR Calc Total Iron Binding Capacity 267 ug/dL 250-[address] [facility] Platelets bldOrdered By: Dr. Long on 04-14-2022 Platelets (Bld) [#/Vol] 320 10*3/uL 150-[address] [facility] Serum or plasma albumin maximilian urement (mass/volume)Ordered By: Dr. Long on 04-14-2022 Albumin [Mass/Vol] 4.0 g/dL 3.2-5.0 [facility] Serum or plasma albumin/glob ulin mass ratioOrdered By: Dr. Long on 04-14-2022 Albumin/Globulin [Mass ratio] 1.2 {ratio} 0.9-2.[address] [facility] Serum or plasma calcium maximilian urement (mass/volume)Ordered By: Dr. Long on 04-14-2022 Calcium [Mass/Vol] 9.3 mg/dL 8.5-10.1 [facility] Serum or plasma creatinine m easurement (mass/volume)Ordered By: Dr. Long on 04-14-2022 Creatinine [Mass/Vol] 0.70 mg/dL 0.55-1.[address] [facility] Comment on above: The validity of the calculated GFR & GFRAA in patients over 70 years has not been determined. Clinical correlation is essential. Serum or plasma ferritin ankur surement (mass/volume)Ordered By: Dr. Long on 04-14-2022 Ferritin [Mass/Vol] 82 ng/mL 8-252 [facility] Serum or plasma iron saturat ion measurement (mass fraction)Ordered By: Dr. Long on 04-14-2022 Iron saturation [Mass fraction] 93.3 % 15.0-55.[address] [facility] Serum or plasma urea nitroge n measurement (mass/volume)Ordered By: Dr. Long on 04-14-2022 Urea nitrogen [Mass/Vol] 12 mg/dL 7-[address] [facility] Thin prep Papanicolaou smear with manual screeningOrdered By: Dr. Long on 04-14-2022 Thin prep Papanicolaou smear with manual screening 18 U/L 15-[address] [facility] Thin prep Papanicolaou smear with manual screening 4 5-[address] [facility] Absolute lymphocyte countOrd ered By: Dr. Long on 02-17-2022 Lymphocytes Auto (Unsp spec) [#/Vol] 1.48 10*3/uL 0.83-4.[address] [facility] Basophil percentageOrdered B y: Dr. Long on 02-17-2022 Basophils/100 WBC (Bld) 0.6 % 0-[address] [facility] Bilirubin [Mass/Vol] 0.70 mg/dL 0.20-1.00 [facility] Comment on above: For patients on eltr ombopag therapy, use of Dimension [place] TBIL is not recommended. Chloride [Moles/Vol] 103 mmol/L 98-107 [facility] Eosinophils/100 WBC (Bld) 1.1 % 0-[address] [facility] Glucose [Mass/Vol] 101 mg/dL 74-106 [facility] Comment on above: Fasting Glucose resu lt from 100 to 125 mg/dL suggests IMPAIRED HOMEOSTASIS per A.D.A. criteria. Neutrophils (Bld) [#/Vol] 4.2 10*3/uL 2.0-7.[address] [facility] Neutrophils/100 WBC (Bld) 67.4 % 47-[address] [facility] Potassium [Moles/Vol] 3.6 mmol/L 3.5-5.[address] [facility] Protein [Mass/Vol] 8.2 g/dL 6.4-8.2 [facility] Sodium [Moles/Vol] 137 mmol/L 136-145 [facility] WBC (Bld) [#/Vol] 6.3 10*3/uL 4.4-11.0 [facility] Blood erythrocytes count (nu mber/volume)Ordered By: Dr. Long on 02-17-2022 RBC (Bld) [#/Vol] 4.57 10*6/uL 4.2-5.4 [facility] Blood hemoglobin measurement (mass/volume)Ordered By: Dr. Long on 02-17-2022 Hemoglobin (Bld) [Mass/Vol] 15.3 g/dL 12.0-15.[address] [facility] Blood lymphocytes/100 leukoc ytesOrdered By: Dr. Long on 02-17-2022 Lymphocytes/100 WBC (Bld) 23.5 % 19-[address] [facility] Blood monocytes/100 leukocyt esOrdered By: Dr. Long on 02-17-2022 Monocytes/100 WBC (Bld) 7.2 % 0-[address] [facility] Blood platelet mean volumeOr dered By: Dr. Long on 02-17-2022 Platelet mean volume (Bld) [Entitic vol] 8.9 fL 6.2-12.[address] [facility] Determination of erythrocyte mean corpuscular volume (MCV)Ordered By: Dr. Long on 02-17-2022 MCV (RBC) [Entitic vol] 98.0 fL 81-[address] [facility] Hematocrit Auto (Bld) [Volum e fraction]Ordered By: Dr. Long on 02-17-2022 Hematocrit (Bld) [Volume fraction] 44.8 % 37-[address] [facility] Iron measurement (mass/mass) Ordered By: Dr. Long on 02-17-2022 Iron (Unsp spec) [Mass/Mass] 278 ug/dL 50-[address] [facility] Laboratory - Chemistry and C hemistry - challengeOrdered By: Dr. Long on 02-17-2022 ALP [Catalytic activity/Vol] 99 U/L 45-[address] [facility] ALT [Catalytic activity/Vol] 35 U/L 13-[address] [facility] CO2 [Moles/Vol] 26.0 mmol/L 21.0-32.[address] [facility] Globulin (S) [Mass/Vol] 4.1 g/dL 2.2-4.[address] [facility] Urea nitrogen/Creatinine [Mass ratio] 12.8 mg/mg 10-[address] [facility] Laboratory - Hematology and Cell countsOrdered By: Dr. Long on 02-17-2022 Erythrocyte distribution width (RBC) [Entitic vol] 43.1 fL 35.1-43.[address] [facility] Erythrocyte distribution width (RBC) [Ratio] 11.9 % 11.6-14.[address] [facility] Immature granulocytes/100 WBC (Bld) 0.200 % 0.0-0.[address] [facility] Comment on above: IG% - Immature Granu locytes (promyelocytes, myelocytes and metamyelocytes) > 1% indicates that a LEFT SHIFT is Present. MCH (RBC) [Entitic mass] 33.5 pg 27.0-32.[address] [facility] Nucleated RBC/100 WBC (Bld) [Ratio] 0 % 0-[address] [facility] MCHC Auto (RBC) [Mass/Vol]Or dered By: Dr. Long on 02-17-2022 MCHC (RBC) [Mass/Vol] 34.2 g/dL 32-36 [facility] No Panel InformationOrdered By: Dr. Long on 02-17-2022 Estimated GFR (MDRD) Amer 92 mL/min >[address] [facility] Comment on above: GFR Calc Estimated GFR (MDRD) Non-Af Amer 76 mL/min >[address] [facility] Comment on above: Non- GFR Calc Total Iron Binding Capacity 300 ug/dL 250-[address] [facility] Platelets bldOrdered By: Dr. Long on 02-17-2022 Platelets (Bld) [#/Vol] 390 10*3/uL 150-450 [facility] Serum or plasma albumin maximilian urement (mass/volume)Ordered By: Dr. Long on 02-17-2022 Albumin [Mass/Vol] 4.1 g/dL 3.2-5.0 [facility] Serum or plasma albumin/glob ulin mass ratioOrdered By: Dr. Long on 02-17-2022 Albumin/Globulin [Mass ratio] 1.0 {ratio} 0.9-2.[address] [facility] Serum or plasma calcium maximilian urement (mass/volume)Ordered By: Dr. Long on 02-17-2022 Calcium [Mass/Vol] 9.2 mg/dL 8.5-10.1 [facility] Serum or plasma creatinine m easurement (mass/volume)Ordered By: Dr. Long on 02-17-2022 Creatinine [Mass/Vol] 0.86 mg/dL 0.55-1.[address] [facility] Comment on above: The validity of the calculated GFR & GFRAA in patients over 70 years has not been determined. Clinical correlation is essential. Serum or plasma ferritin ankur surement (mass/volume)Ordered By: Dr. Long on 02-17-2022 Ferritin [Mass/Vol] 205 ng/mL 8-252 [facility] Serum or plasma iron saturat ion measurement (mass fraction)Ordered By: Dr. Long on 02-17-2022 Iron saturation [Mass fraction] 92.7 % 15.0-55.[address] [facility] Serum or plasma urea nitroge n measurement (mass/volume)Ordered By: Dr. Long on 02-17-2022 Urea nitrogen [Mass/Vol] 11 mg/dL 7-[address] [facility] Thin prep Papanicolaou smear with manual screeningOrdered By: Dr. Long on 02-17-2022 Thin prep Papanicolaou smear with manual screening 28 U/L 15-[address] [facility] Thin prep Papanicolaou smear with manual screening 8 5-[address] [facility] Thin prep Papanicolaou smear with manual screening 210 U/L 84-[address] [facility] Absolute lymphocyte counton 01-09-2022 Lymphocytes Auto (Unsp spec) [#/Vol] 1.80 10*3/uL 0.83-4.[address] [facility] Work Phone: Basophil percentageon 2021 Basophils/100 WBC (Bld) 0.6 % 0-[address] [facility] Work Phone: Bilirubin [Mass/Vol] 0.50 mg/dL 0.20-1.00 [facility] Work Phone: Comment on above: For patients on eltr ombopag therapy, use of [employer] [place] TBIL is not recommended. Chloride [Moles/Vol] 104 mmol/L 98-107 [facility] Work Phone: Eosinophils/100 WBC (Bld) 2.4 % 0-[address] [facility] Work Phone: Glucose [Mass/Vol] 113 mg/dL 74-106 [facility] Work Phone: Comment on above: Fasting Glucose resu lt from 100 to 125 mg/dL suggests IMPAIRED HOMEOSTASIS per A.D.A. criteria. Neutrophils (Bld) [#/Vol] 3.0 10*3/uL 2.0-7.[address] [facility] Work Phone: Neutrophils/100 WBC (Bld) 55.0 % 47-[address] [facility] Work Phone: Potassium [Moles/Vol] 4.3 mmol/L 3.5-5.[address] [facility] Work Phone: Protein [Mass/Vol] 7.6 g/dL 6.4-8.2 [facility] Work Phone: Sodium [Moles/Vol] 141 mmol/L 136-145 [facility] Work Phone: WBC (Bld) [#/Vol] 5.4 10*3/uL 4.4-11.0 [facility] Work Phone: Blood erythrocytes count (nu mber/volume)on 01-09-2022 RBC (Bld) [#/Vol] 4.67 10*6/uL 4.2-5.4 [facility] Work Phone: Blood hemoglobin measurement (mass/volume)on 01-09-2022 Hemoglobin (Bld) [Mass/Vol] 15.7 g/dL 12.0-15.[address] [facility] Work Phone: Blood lymphocytes/100 leukoc yteson 01-09-2022 Lymphocytes/100 WBC (Bld) 33.1 % 19-[address] [facility] Work Phone: Blood monocytes/100 leukocyt eson 01-09-2022 Monocytes/100 WBC (Bld) 8.7 % 0-[address] [facility] Work Phone: Blood platelet mean volumeon 01-09-2022 Platelet mean volume (Bld) [Entitic vol] 8.6 fL 6.2-12.[address] [facility] Work Phone: Determination of erythrocyte mean corpuscular volume (MCV)on 01-09-2022 MCV (RBC) [Entitic vol] 97.4 fL 81-[address] [facility] Work Phone: Hematocrit Auto (Bld) [Volum e fraction]on 01-09-2022 Hematocrit (Bld) [Volume fraction] 45.5 % 37-[address] [facility] Work Phone: Laboratory - Chemistry and C hemistry - challengeon 01-09-2022 ALP [Catalytic activity/Vol] 98 U/L 45-[address] [facility] Work Phone: ALT [Catalytic activity/Vol] 30 U/L 13-[address] [facility] Work Phone: CO2 [Moles/Vol] 31.0 mmol/L 21.0-32.[address] [facility] Work Phone: Globulin (S) [Mass/Vol] 3.5 g/dL 2.2-4.[address] [facility] Work Phone: [phone] Urea nitrogen/Creatinine [Mass ratio] 12.6 mg/mg 10-[address] [facility] Work Phone: [phone] Laboratory - Hematology and Cell countson 01-09-2022 Erythrocyte distribution width (RBC) [Entitic vol] 41.8 fL 35.1-43.[address] [facility] Work Phone: [phone] Erythrocyte distribution width (RBC) [Ratio] 11.7 % 11.6-14.[address] [facility] Work Phone: [phone] Immature granulocytes/100 WBC (Bld) 0.200 % 0.0-0.[address] [facility] Work Phone: [phone] Comment on above: IG% - Immature Granu locytes (promyelocytes, myelocytes and metamyelocytes) > 1% indicates that a LEFT SHIFT is Present. MCH (RBC) [Entitic mass] 33.6 pg 27.0-32.[address] [facility] Work Phone: [phone] Nucleated RBC/100 WBC (Bld) [Ratio] 0 % 0-[address] [facility] Work Phone: [phone] MCHC Auto (RBC) [Mass/Vol]on 01-09-2022 MCHC (RBC) [Mass/Vol] 34.5 g/dL 32-[address] [facility] Work Phone: [phone] Panel Informationon 01-09 Estimated GFR (MDRD) Amer 101 mL/min >[address] [facility] Work Phone: [phone] Comment on above: GFR Calc Estimated GFR (MDRD) Non-Af Amer 83 mL/min >[address] [facility] Work Phone: [phone] Comment on above: Non- GFR Calc Platelets bldon 01-09-2022 Platelets (Bld) [#/Vol] 310 10*3/uL 150-[address] [facility] Work Phone: [phone] Serum or plasma albumin maximilian urement (mass/volume)on 01-09-2022 Albumin [Mass/Vol] 4.1 g/dL 3.2-5.0 [facility] Work Phone: [phone] Serum or plasma albumin/glob ulin mass ratioon 01-09-2022 Albumin/Globulin [Mass ratio] 1.2 {ratio} 0.9-2.[address] [facility] Work Phone: [phone] Serum or plasma calcium mxaimilian urement (mass/volume)on 01-09-2022 Calcium [Mass/Vol] 9.2 mg/dL 8.5-10.1 [facility] Work Phone: [phone] Serum or plasma creatinine m easurement (mass/volume)on 01-09-2022 Creatinine [Mass/Vol] 0.79 mg/dL 0.55-1.[address] [facility] Work Phone: Comment on above: The validity of the calculated GFR & GFRAA in patients over 70 years has not been determined. Clinical correlation is essential. Serum or plasma ferritin ankur surement (mass/volume)on 01-09-2022 Ferritin [Mass/Vol] 173 ng/mL 8-252 [facility] Work Phone: [phone] Serum or plasma urea nitroge n measurement (mass/volume)on 01-09-2022 Urea nitrogen [Mass/Vol] 10 mg/dL 7-[address] [facility] Work Phone: [phone] Thin prep Papanicolaou smear with manual screeningon 01-09-2022 Thin prep Papanicolaou smear with manual screening 25 U/L 15-[address] [facility] Work Phone: [phone] Thin prep Papanicolaou smear with manual screening 6 5-[address] [facility] Work Phone: [phone] Absolute lymphocyte counton 11-14-2021 Lymphocytes Auto (Unsp spec) [#/Vol] 1.91 10*3/uL 0.83-4.[address] [facility] Work Phone: Basophil percentageon 2021 Basophils/100 WBC (Bld) 0.7 % 0-[address] [facility] Work Phone: [phone] Eosinophils/100 WBC (Bld) 0.7 % 0-[address] [facility] Work Phone: [phone] Neutrophils (Bld) [#/Vol] 4.6 10*3/uL 2.0-7.[address] [facility] Work Phone: [phone] Neutrophils/100 WBC (Bld) 64.6 % 47-[address] [facility] Work Phone: [phone] WBC (Bld) [#/Vol] 7.1 10*3/uL 4.4-11.0 [facility] Work Phone: [phone] Blood erythrocytes count (nu mber/volume)on 11-14-2021 RBC (Bld) [#/Vol] 4.34 10*6/uL 4.2-5.4 [facility] Work Phone: [phone] Blood hemoglobin measurement (mass/volume)on 11-14-2021 Hemoglobin (Bld) [Mass/Vol] 14.1 g/dL 12.0-15.[address] [facility] Work Phone: [phone] Blood lymphocytes/100 leukoc yteson 11-14-2021 Lymphocytes/100 WBC (Bld) 26.8 % 19-[address] [facility] Work Phone: [phone] Blood monocytes/100 leukocyt eson 11-14-2021 Monocytes/100 WBC (Bld) 6.9 % 0-[address] [facility] Work Phone: [phone] Blood platelet mean volumeon 11-14-2021 Platelet mean volume (Bld) [Entitic vol] 8.6 fL 6.2-12.[address] [facility] Work Phone: [phone] Determination of erythrocyte mean corpuscular volume (MCV)on 11-14-2021 MCV (RBC) [Entitic vol] 97.7 fL 81-[address] [facility] Work Phone: [phone] Hematocrit Auto (Bld) [Volum e fraction]on 11-14-2021 Hematocrit (Bld) [Volume fraction] 42.4 % 37-[address] [facility] Work Phone: [phone] Laboratory - Hematology and Cell countson 11-14-2021 Erythrocyte distribution width (RBC) [Entitic vol] 42.2 fL 35.1-43.[address] [facility] Work Phone: [phone] Erythrocyte distribution width (RBC) [Ratio] 11.7 % 11.6-14.[address] [facility] Work [phone] Immature granulocytes/100 WBC (Bld) 0.300 % 0.0-0.[address] [facility] Work Phone: [phone] Comment on above: IG% - Immature Granu locytes (promyelocytes, myelocytes and metamyelocytes) > 1% indicates that a LEFT SHIFT is Present. MCH (RBC) [Entitic mass] 32.5 pg 27.0-32.[address] [facility] Work Phone: [phone] Nucleated RBC/100 WBC (Bld) [Ratio] 0 % 0-[address] [facility] Work Phone: [phone] MCHC Auto (RBC) [Mass/Vol]on 11-14-2021 MCHC (RBC) [Mass/Vol] 33.3 g/dL 32-[address] [facility] Work Phone: [phone] Platelets bldon 11-14-2021 Platelets (Bld) [#/Vol] 395 10*3/uL 150-[address] [facility] Work Phone: [phone] Serum or plasma ferritin ankur surement (mass/volume)on 11-14-2021 Ferritin [Mass/Vol] 212 ng/mL 8-252 [facility] Work Phone: [phone] Absolute lymphocyte counton 09-26-2021 Lymphocytes Auto (Unsp spec) [#/Vol] 1.68 10*3/uL 0.83-4.[address] [facility] Work Phone: Basophil percentageon 2021 Basophils/100 WBC (Bld) 0.4 % 0-[address] [facility] Work Phone: [phone] Bilirubin [Mass/Vol] 0.90 mg/dL 0.20-1.00 [facility] Work Phone: [phone] Comment on above: For patients on eltr ombopag therapy, use of [employer] [place] TBIL is not recommended. Chloride [Moles/Vol] 102 mmol/L 98-107 [facility] Work Phone: Eosinophils/100 WBC (Bld) 0.9 % 0-[address] [facility] Work Phone: Glucose [Mass/Vol] 97 mg/dL 74-106 [facility] Work Phone: Neutrophils (Bld) [#/Vol] 4.7 10*3/uL 2.0-7.[address] [facility] Work Phone: Neutrophils/100 WBC (Bld) 67.3 % 47-[address] [facility] Work Phone: Potassium [Moles/Vol] 3.9 mmol/L 3.5-5.[address] [facility] Work Phone: Protein [Mass/Vol] 7.2 g/dL 6.4-8.2 [facility] Work Phone: Sodium [Moles/Vol] 136 mmol/L 136-145 [facility] Work Phone: WBC (Bld) [#/Vol] 6.9 10*3/uL 4.4-11.0 [facility] Work Phone: Blood erythrocytes count (nu mber/volume)on 09-26-2021 RBC (Bld) [#/Vol] 4.24 10*6/uL 4.2-5.4 [facility] Work Phone: Blood hemoglobin measurement (mass/volume)on 09-26-2021 Hemoglobin (Bld) [Mass/Vol] 14.3 g/dL 12.0-15.[address] [facility] Work Phone: Blood lymphocytes/100 leukoc yteson 09-26-2021 Lymphocytes/100 WBC (Bld) 24.3 % 19-[address] [facility] Work Phone: Blood monocytes/100 leukocyt eson 09-26-2021 Monocytes/100 WBC (Bld) 6.8 % 0-[address] [facility] Work Phone: Blood platelet mean volumeon 09-26-2021 Platelet mean volume (Bld) [Entitic vol] 8.8 fL 6.2-12.[address] [facility] Work Phone: [phone] Determination of erythrocyte mean corpuscular volume (MCV)on 09-26-2021 MCV (RBC) [Entitic vol] 99.3 fL 81-[address] [facility] Work Phone: [phone] Hematocrit Auto (Bld) [Volum e fraction]on 09-26-2021 Hematocrit (Bld) [Volume fraction] 42.1 % 37-[address] [facility] Work Phone: [phone] Laboratory - Chemistry and C hemistry - challengeon 09-26-2021 ALP [Catalytic activity/Vol] 87 U/L 45-[address] [facility] Work Phone: [phone] ALT [Catalytic activity/Vol] 25 U/L 13-[address] [facility] Work Phone: [phone] CO2 [Moles/Vol] 31.0 mmol/L 21.0-32.[address] [facility] Work Phone: [phone] Globulin (S) [Mass/Vol] 3.6 g/dL 2.2-4.[address] [facility] Work Phone: [phone] Urea nitrogen/Creatinine [Mass ratio] 16.2 mg/mg 10-[address] [facility] Work Phone: [phone] Laboratory - Hematology and Cell countson 09-26-2021 Erythrocyte distribution width (RBC) [Entitic vol] 44.6 fL 35.1-43.[address] [facility] Work Phone: [phone] Erythrocyte distribution width (RBC) [Ratio] 12.1 % 11.6-14.[address] [facility] Work Phone: [phone] Immature granulocytes/100 WBC (Bld) 0.300 % 0.0-0.[address] [facility] Work Phone: [phone] Comment on above: IG% - Immature Granu locytes (promyelocytes, myelocytes and metamyelocytes) > 1% indicates that a LEFT SHIFT is Present. MCH (RBC) [Entitic mass] 33.7 pg 27.0-32.0 [facility] Work Phone: Nucleated RBC/100 WBC (Bld) [Ratio] 0 % 0-[address] [facility] Work Phone: MCHC Auto (RBC) [Mass/Vol]on 09-26-2021 MCHC (RBC) [Mass/Vol] 34.0 g/dL 32-[address] [facility] Work Phone: No Panel Informationon 09-26 Estimated GFR (MDRD) Amer 109 mL/min >[address] [facility] Work Phone: Comment on above: GFR Calc Estimated GFR (MDRD) Non-Af Amer 90 mL/min >[address] [facility] Work Phone: Comment on above: Non- GFR Calc Platelets bldon 09-26-2021 Platelets (Bld) [#/Vol] 376 10*3/uL 150-[address] [facility] Work Phone: [phone] Serum or plasma albumin maximilian urement (mass/volume)on 09-26-2021 Albumin [Mass/Vol] 3.6 g/dL 3.2-5.0 [facility] Work Phone: Serum or plasma albumin/glob ulin mass ratioon 09-26-2021 Albumin/Globulin [Mass ratio] 1.0 {ratio} 0.9-2.[address] [facility] Work Phone: [phone] Serum or plasma calcium maximilian urement (mass/volume)on 09-26-2021 Calcium [Mass/Vol] 9.1 mg/dL 8.5-10.1 [facility] Work Phone: [phone] Serum or plasma creatinine m easurement (mass/volume)on 09-26-2021 Creatinine [Mass/Vol] 0.74 mg/dL 0.55-1.[address] [facility] Work Phone: Comment on above: The validity of the calculated GFR & GFRAA in patients over 70 years has not been determined. Clinical correlation is essential. Serum or plasma ferritin ankur surement (mass/volume)on 07-28-2022 Ferritin [Mass/Vol] 160 ng/mL 8-252 [facility] Work Phone: Serum or plasma urea nitroge n measurement (mass/volume)on 09-26-2021 Urea nitrogen [Mass/Vol] 12 mg/dL 7-[address] [facility] Work Phone: Thin prep Papanicolaou smear with manual screeningon 09-26-2021 Thin prep Papanicolaou smear with manual screening 22 U/L 15-[address] [facility] Work Phone: Thin prep Papanicolaou smear with manual screening 3 5-[address] [facility] Work Phone: Absolute lymphocyte counton 08-30-2021 Lymphocytes Auto (Unsp spec) [#/Vol] 1.50 10*3/uL 0.83-4.[address] [facility] Work Phone: Basophil percentageon 2021 Basophils/100 WBC (Bld) 0.5 % 0-[address] [facility] Work Phone: Bilirubin [Mass/Vol] 0.20 mg/dL 0.20-1.00 [facility] Work Phone: Comment on above: For patients on eltr ombopag therapy, use of [employer] [place] TBIL is not recommended. Chloride [Moles/Vol] 103 mmol/L 98-107 [facility] Work Phone: Eosinophils/100 WBC (Bld) 0.9 % 0-[address] [facility] Work Phone: Glucose [Mass/Vol] 99 mg/dL 74-106 [facility] Work Phone: Neutrophils (Bld) [#/Vol] 4.2 10*3/uL 2.0-7.[address] [facility] Work Phone: Neutrophils/100 WBC (Bld) 65.9 % 47-[address] [facility] Work Phone: Potassium [Moles/Vol] 3.4 mmol/L 3.5-5.[address] [facility] Work Phone: Protein [Mass/Vol] 7.5 g/dL 6.4-8.2 [facility] Work Phone: [phone] Sodium [Moles/Vol] 139 mmol/L 136-145 [facility] Work Phone: [phone] WBC (Bld) [#/Vol] 6.3 10*3/uL 4.4-11.0 [facility] Work Phone: [phone] Blood erythrocytes count (nu mber/volume)on 08-30-2021 RBC (Bld) [#/Vol] 4.21 10*6/uL 4.2-5.4 [facility] Work Phone: [phone] Blood hemoglobin measurement (mass/volume)on 08-30-2021 Hemoglobin (Bld) [Mass/Vol] 13.8 g/dL 12.0-15.[address] [facility] Work Phone: [phone] Blood lymphocytes/100 leukoc yteson 08-30-2021 Lymphocytes/100 WBC (Bld) 23.7 % 19-[address] [facility] Work Phone: [phone] Blood monocytes/100 leukocyt eson 08-30-2021 Monocytes/100 WBC (Bld) 8.7 % 0-[address] [facility] Work Phone: [phone] Blood platelet mean volumeon 08-30-2021 Platelet mean volume (Bld) [Entitic vol] 8.7 fL 6.2-12.[address] [facility] Work Phone: [phone] Determination of erythrocyte mean corpuscular volume (MCV)on 08-30-2021 MCV (RBC) [Entitic vol] 99.0 fL 81-[address] [facility] Work Phone: [phone] Hematocrit Auto (Bld) [Volum e fraction]on 08-30-2021 Hematocrit (Bld) [Volume fraction] 41.7 % 37-[address] [facility] Work Phone: [phone] Iron measurement (mass/mass) on 08-30-2021 Iron (Unsp spec) [Mass/Mass] 111 ug/dL 50-[address] [facility] Work Phone: [phone] Laboratory - Chemistry and C hemistry - challengeon 08-30-2021 ALP [Catalytic activity/Vol] 108 U/L 45-[address] [facility] Work Phone: [phone] ALT [Catalytic activity/Vol] 38 U/L 13-[address] [facility] Work Phone: [phone] CO2 [Moles/Vol] 30.0 mmol/L 21.0-32.[address] [facility] Work Phone: [phone] Globulin (S) [Mass/Vol] 3.5 g/dL 2.2-4.[address] [facility] Work Phone: [phone] Urea nitrogen/Creatinine [Mass ratio] 12.0 mg/mg 10-[address] [facility] Work Phone: [phone] Laboratory - Hematology and Cell countson 08-30-2021 Erythrocyte distribution width (RBC) [Entitic vol] 43.4 fL 35.1-43.[address] [facility] Work Phone: [phone] Erythrocyte distribution width (RBC) [Ratio] 11.9 % 11.6-14.[address] [facility] Work Phone: [phone] Immature granulocytes/100 WBC (Bld) 0.300 % 0.0-0.[address] [facility] Work Phone: [phone] Comment on above: IG% - Immature Granu locytes (promyelocytes, myelocytes and metamyelocytes) > 1% indicates that a LEFT SHIFT is Present. MCH (RBC) [Entitic mass] 32.8 pg 27.0-32.[address] [facility] Work Phone: [phone] Nucleated RBC/100 WBC (Bld) [Ratio] 0 % 0-[address] [facility] Work Phone: [phone] MCHC Auto (RBC) [Mass/Vol]on 08-30-2021 MCHC (RBC) [Mass/Vol] 33.1 g/dL 32-[address] [facility] Work Phone: [phone] Panel Informationon 08-30 Estimated GFR (MDRD) Amer 85 mL/min >[address] [facility] Work Phone: [phone] Comment on above: GFR Calc Estimated GFR (MDRD) Non-Af Amer 70 mL/min >[address] [facility] Work Phone: Comment on above: Non- GFR Calc Total Iron Binding Capacity 301 ug/dL 250-[address] [facility] Work Phone: Platelets bldon 08-30-2021 Platelets (Bld) [#/Vol] 316 10*3/uL 150-[address] [facility] Work Phone: [phone] Serum or plasma albumin maximilian urement (mass/volume)on 08-30-2021 Albumin [Mass/Vol] 4.0 g/dL 3.2-5.0 [facility] Work Phone: [phone] Serum or plasma albumin/glob ulin mass ratioon 08-30-2021 Albumin/Globulin [Mass ratio] 1.1 {ratio} 0.9-2.[address] [facility] Work Phone: Serum or plasma calcium maximilian urement (mass/volume)on 08-30-2021 Calcium [Mass/Vol] 9.2 mg/dL 8.5-10.1 [facility] Work Phone: [phone] Serum or plasma creatinine m easurement (mass/volume)on 08-30-2021 Creatinine [Mass/Vol] 0.92 mg/dL 0.55-1.[address] [facility] Work Phone: Comment on above: The validity of the calculated GFR & GFRAA in patients over 70 years has not been determined. Clinical correlation is essential. Serum or plasma ferritin ankur surement (mass/volume)on 08-30-2021 Ferritin [Mass/Vol] 136 ng/mL 8-252 [facility] Work Phone: [phone] Serum or plasma iron saturat ion measurement (mass fraction)on 08-30-2021 Iron saturation [Mass fraction] 36.9 % 15.0-55.[address] [facility] Work Phone: [phone] Serum or plasma urea nitroge n measurement (mass/volume)on 08-30-2021 Urea nitrogen [Mass/Vol] 11 mg/dL 7-[address] [facility] Work Phone: Thin prep Papanicolaou smear with manual screeningon 08-30-2021 Thin prep Papanicolaou smear with manual screening 28 U/L 15-[address] [facility] Work Phone: [phone] Thin prep Papanicolaou smear with manual screening 6 5-[address] [facility] Work Phone: [phone] Absolute lymphocyte counton 08-02-2021 Lymphocytes Auto (Unsp spec) [#/Vol] 1.87 10*3/uL 0.83-4.[address] [facility] Work Phone: Basophil percentageon 2021 Basophils/100 WBC (Bld) 0.5 % 0-[address] [facility] Work Phone: [phone] Bilirubin [Mass/Vol] 0.40 mg/dL 0.20-1.00 [facility] Work Phone: [phone] Comment on above: For patients on eltr ombopag therapy, use of [employer] [place] TBIL is not recommended. Chloride [Moles/Vol] 101 mmol/L 98-107 [facility] Work Phone: Eosinophils/100 WBC (Bld) 1.1 % 0-[address] [facility] Work Phone: Glucose [Mass/Vol] 91 mg/dL 74-106 [facility] Work Phone: Neutrophils (Bld) [#/Vol] 3.1 10*3/uL 2.0-7.[address] [facility] Work Phone: Neutrophils/100 WBC (Bld) 54.3 % 47-[address] [facility] Work Phone: Potassium [Moles/Vol] 3.9 mmol/L 3.5-5.1 [facility] [facility] Work Phone: Comment on above: Slight Hemolysis, Re sult may be falsely increased. Protein [Mass/Vol] 7.3 g/dL 6.4-8.2 [facility] Work Phone: Sodium [Moles/Vol] 135 mmol/L 136-145 [facility] Work Phone: WBC (Bld) [#/Vol] 5.7 10*3/uL 4.4-11.0 [facility] Work Phone: Blood erythrocytes count (nu mber/volume)on 08-02-2021 RBC (Bld) [#/Vol] 4.34 10*6/uL 4.2-5.4 [facility]: Blood hemoglobin measurement (mass/volume)on 08-02-2021 Hemoglobin (Bld) [Mass/Vol] 14.3 g/dL 12.0-15.[address] [facility] Work Phone: Blood lymphocytes/100 leukoc yteson 08-02-2021 Lymphocytes/100 WBC (Bld) 32.8 % 19-[address] [facility] Work Phone: Blood monocytes/100 leukocyt eson 08-02-2021 Monocytes/100 WBC (Bld) 11.1 % 0-[address] [facility] Work Phone: Blood platelet mean volumeon 08-02-2021 Platelet mean volume (Bld) [Entitic vol] 8.8 fL 6.2-12.[address] [facility] Work Phone: Determination of erythrocyte mean corpuscular volume (MCV)on 08-02-2021 MCV (RBC) [Entitic vol] 98.4 fL 81-[address] [facility] Work Phone: Hematocrit Auto (Bld) [Volum e fraction]on 08-02-2021 Hematocrit (Bld) [Volume fraction] 42.7 % 37-[address] [facility] Work Phone: Laboratory - Chemistry and C hemistry - challengeon 08-02-2021 ALP [Catalytic activity/Vol] 77 U/L 45-[address] [facility] Work Phone: ALT [Catalytic activity/Vol] 36 U/L 13-[address] [facility] Work Phone: CO2 [Moles/Vol] 28.0 mmol/L 21.0-32.[address] [facility] Work Phone: Globulin (S) [Mass/Vol] 3.5 g/dL 2.2-4.[address] [facility] Work Phone: [phone] Urea nitrogen/Creatinine [Mass ratio] 16.5 mg/mg 10-[address] [facility] Work Phone: [phone] Laboratory - Hematology and Cell countson 08-02-2021 Erythrocyte distribution width (RBC) [Entitic vol] 41.7 fL 35.1-43.[address] [facility] Work Phone: [phone] Erythrocyte distribution width (RBC) [Ratio] 11.4 % 11.6-14.[address] [facility] Work Phone: [phone] Immature granulocytes/100 WBC (Bld) 0.200 % 0.0-0.[address] [facility] Work Phone: [phone] Comment on above: IG% - Immature Granu locytes (promyelocytes, myelocytes and metamyelocytes) > 1% indicates that a LEFT SHIFT is Present. MCH (RBC) [Entitic mass] 32.9 pg 27.0-32.[address] [facility] Work Phone: [phone] Nucleated RBC/100 WBC (Bld) [Ratio] 0 % 0-[address] [facility] Work Phone: [phone] MCHC Auto (RBC) [Mass/Vol]on 08-02-2021 MCHC (RBC) [Mass/Vol] 33.5 g/dL 32-[address] [facility] Work Phone: [phone] No Panel Informationon 08-02 Estimated GFR (MDRD) Amer 112 mL/min >[address] [facility] Work Phone: [phone] Comment on above: GFR Calc Estimated GFR (MDRD) Non-Af Amer 92 mL/min >[address] [facility] Work Phone: [phone] Comment on above: Non- GFR Calc Platelets bldon 08-02-2021 Platelets (Bld) [#/Vol] 301 10*3/uL 150-[address] [facility] Work Phone: [phone] Serum or plasma albumin maximilian urement (mass/volume)on 08-02-2021 Albumin [Mass/Vol] 3.8 g/dL 3.2-5.0 [facility] Work Phone: [phone] Serum or plasma albumin/glob ulin mass ratioon 08-02-2021 Albumin/Globulin [Mass ratio] 1.1 {ratio} 0.9-2.[address] [facility] Work Phone: Serum or plasma calcium maximilian urement (mass/volume)on 08-02-2021 Calcium [Mass/Vol] 9.1 mg/dL 8.5-10.1 [facility] Work Phone: Serum or plasma creatinine m easurement (mass/volume)on 08-02-2021 Creatinine [Mass/Vol] 0.73 mg/dL 0.55-1.[address] [facility] Work Phone: Comment on above: The validity of the calculated GFR & GFRAA in patients over 70 years has not been determined. Clinical correlation is essential. Serum or plasma ferritin ankur surement (mass/volume)on 08-02-2021 Ferritin [Mass/Vol] 135 ng/mL 8-252 [facility] Work Phone: [phone] Serum or plasma urea nitroge n measurement (mass/volume)on 08-02-2021 Urea nitrogen [Mass/Vol] 12 mg/dL 7-[address] [facility] Work Phone: [phone] Thin prep Papanicolaou smear with manual screeningon 08-02-2021 Thin prep Papanicolaou smear with manual screening 26 U/L 15-[address] [facility] Work Phone: Comment on above: Slight Hemolysis, Re sult may be falsely increased. Thin prep Papanicolaou smear with manual screening 6 5-[address] [facility] Work Phone: Absolute lymphocyte counton 07-08-2021 Lymphocytes Auto (Unsp spec) [#/Vol] 2.23 10*3/uL 0.83-4.[address] [facility] Work Phone: Basophil percentageon 2021 Basophils/100 WBC (Bld) 0.6 % 0-[address] [facility] Work Phone: Bilirubin [Mass/Vol] 0.40 mg/dL 0.20-1.00 [facility] Work Phone: Comment on above: For patients on eltr ombopag therapy, use of Dimension [place] TBIL is not recommended. Chloride [Moles/Vol] 102 mmol/L 98-107 [facility] Work Phone: Eosinophils/100 WBC (Bld) 1.1 % 0-[address] [facility] Work Phone: Glucose [Mass/Vol] 84 mg/dL 74-106 [facility] Work Phone: Neutrophils (Bld) [#/Vol] 3.5 10*3/uL 2.0-7.[address] [facility] Work Phone: Neutrophils/100 WBC (Bld) 54.4 % 47-[address] [facility] Work Phone: Potassium [Moles/Vol] 4.0 mmol/L 3.5-5.[address] [facility] Work Phone: Protein [Mass/Vol] 7.7 g/dL 6.4-8.2 [facility] Work Phone: Sodium [Moles/Vol] 137 mmol/L 136-145 [facility] Work Phone: WBC (Bld) [#/Vol] 6.4 10*3/uL 4.4-11.0 [facility] Work Phone: Blood erythrocytes count (nu mber/volume)on 07-08-2021 RBC (Bld) [#/Vol] 4.51 10*6/uL 4.2-5.4 [facility] Work Phone: Blood hemoglobin measurement (mass/volume)on 07-08-2021 Hemoglobin (Bld) [Mass/Vol] 15.0 g/dL 12.0-15.[address] [facility] Work Phone: Blood lymphocytes/100 leukoc yteson 07-08-2021 Lymphocytes/100 WBC (Bld) 35.1 % 19-[address] [facility] Work Phone: Blood monocytes/100 leukocyt eson 07-08-2021 Monocytes/100 WBC (Bld) 8.6 % 0-[address] [facility] Work Phone: Blood platelet mean volumeon 07-08-2021 Platelet mean volume (Bld) [Entitic vol] 8.6 fL 6.2-12.[address] [facility] Work Phone: Determination of erythrocyte mean corpuscular volume (MCV)on 07-08-2021 MCV (RBC) [Entitic vol] 99.8 fL 81-[address] [facility] Work Phone: Hematocrit Auto (Bld) [Volum e fraction]on 07-08-2021 Hematocrit (Bld) [Volume fraction] 45.0 % 37-[address] [facility] Work Phone: Laboratory - Chemistry and C hemistry - challengeon 07-08-2021 ALP [Catalytic activity/Vol] 89 U/L 45-[address] [facility] Work Phone: ALT [Catalytic activity/Vol] 30 U/L 13-[address] [facility] Work Phone: CO2 [Moles/Vol] 30.0 mmol/L 21.0-32.[address] [facility] Work Phone: Globulin (S) [Mass/Vol] 3.7 g/dL 2.2-4.[address] [facility] Work Phone: Urea nitrogen/Creatinine [Mass ratio] 16.6 mg/mg 10-[address] [facility] Work Phone: [phone] Laboratory - Hematology and Cell countson 07-08-2021 Erythrocyte distribution width (RBC) [Entitic vol] 43.4 fL 35.1-43.[address] [facility] Work Phone: Erythrocyte distribution width (RBC) [Ratio] 11.8 % 11.6-14.[address] [facility] Work Phone: Immature granulocytes/100 WBC (Bld) 0.200 % 0.0-0.[address] [facility] Work Phone: Comment on above: IG% - Immature Granu locytes (promyelocytes, myelocytes and metamyelocytes) > 1% indicates that a LEFT SHIFT is Present. MCH (RBC) [Entitic mass] 33.3 pg 27.0-32.[address] [facility] Work Phone: Nucleated RBC/100 WBC (Bld) [Ratio] 0 % 0-[address] [facility] Work Phone: [phone] MCHC Auto (RBC) [Mass/Vol]on 07-08-2021 MCHC (RBC) [Mass/Vol] 33.3 g/dL 32-[address] [facility] Work Phone: No Panel Informationon 07-08 Estimated GFR (MDRD) Amer 112 mL/min >[address] [facility] Work Phone: Comment on above: GFR Calc Estimated GFR (MDRD) Non-Af Amer 93 mL/min >[address] [facility] Work Phone: [phone] Comment on above: Non- GFR Calc Platelets bldon 07-08-2021 Platelets (Bld) [#/Vol] 375 10*3/uL 150-[address] [facility] Work Phone: [phone] Serum or plasma albumin maximilian urement (mass/volume)on 07-08-2021 Albumin [Mass/Vol] 4.0 g/dL 3.2-5.0 [facility] Work Phone: [phone] Serum or plasma albumin/glob ulin mass ratioon 07-08-2021 Albumin/Globulin [Mass ratio] 1.1 {ratio} 0.9-2.[address] [facility] Work Phone: [phone] Serum or plasma calcium maximilian urement (mass/volume)on 07-08-2021 Calcium [Mass/Vol] 9.1 mg/dL 8.5-10.1 [facility] Work Phone: [phone] Serum or plasma creatinine m easurement (mass/volume)on 07-08-2021 Creatinine [Mass/Vol] 0.72 mg/dL 0.55-1.[address] [facility] Work Phone: Comment on above: The validity of the calculated GFR & GFRAA in patients over 70 years has not been determined. Clinical correlation is essential. Serum or plasma ferritin ankur surement (mass/volume)on 07-08-2021 Ferritin [Mass/Vol] 188 ng/mL 8-252 [facility] Work Phone: Serum or plasma urea nitroge n measurement (mass/volume)on 07-08-2021 Urea nitrogen [Mass/Vol] 12 mg/dL 7-[address] [facility] Work Phone: Thin prep Papanicolaou smear with manual screeningon 07-08-2021 Thin prep Papanicolaou smear with manual screening 23 U/L 15-[address] [facility] Work Phone: Thin prep Papanicolaou smear with manual screening 5 5-[address] [facility] Work Phone: Thin prep Papanicolaou smear with manual screening 180 U/L 84-[address] [facility] Work Phone: Absolute lymphocyte counton 06-10-2021 Lymphocytes Auto (Unsp spec) [#/Vol] 1.88 10*3/uL 0.83-4.[address] [facility] Work Phone: Basophil percentageon 2021 Basophils/100 WBC (Bld) 0.4 % 0-[address] [facility] Work Phone: Bilirubin [Mass/Vol] 0.60 mg/dL 0.20-1.00 [facility] Work Phone: Comment on above: For patients on eltr ombopag therapy, use of Dimension [place] TBIL is not recommended. Chloride [Moles/Vol] 105 mmol/L 98-107 [facility] Work Phone: Eosinophils/100 WBC (Bld) 0.9 % 0-[address] [facility] Work Phone: Glucose [Mass/Vol] 103 mg/dL 74-106 [facility] Work Phone: Comment on above: Fasting Glucose resu lt from 100 to 125 mg/dL suggests IMPAIRED HOMEOSTASIS per A.D.A. criteria. Neutrophils (Bld) [#/Vol] 4.2 10*3/uL 2.0-7.[address] [facility] Work Phone: Neutrophils/100 WBC (Bld) 62.5 % 47-[address] [facility] Work Phone: Potassium [Moles/Vol] 3.5 mmol/L 3.5-5.[address] [facility] Work Phone: Protein [Mass/Vol] 7.7 g/dL 6.4-8.2 [facility] Work Phone: Sodium [Moles/Vol] 139 mmol/L 136-145 [facility] Work Phone: WBC (Bld) [#/Vol] 6.8 10*3/uL 4.4-11.0 [facility] Work Phone: Blood erythrocytes count (nu mber/volume)on 06-10-2021 RBC (Bld) [#/Vol] 4.21 10*6/uL 4.2-5.4 [facility] Work Phone: Blood hemoglobin measurement (mass/volume)on 06-10-2021 Hemoglobin (Bld) [Mass/Vol] 13.9 g/dL 12.0-15.[address] [facility] Work Phone: Blood lymphocytes/100 leukoc yteson 06-10-2021 Lymphocytes/100 WBC (Bld) 27.9 % 19-[address] [facility] Work Phone: Blood monocytes/100 leukocyt eson 06-10-2021 Monocytes/100 WBC (Bld) 7.9 % 0-[address] [facility] Work Phone: Blood platelet mean volumeon 06-10-2021 Platelet mean volume (Bld) [Entitic vol] 8.5 fL 6.2-12.[address] [facility] Work Phone: Determination of erythrocyte mean corpuscular volume (MCV)on 06-10-2021 MCV (RBC) [Entitic vol] 97.1 fL 81-[address] [facility] Work Phone: [phone] Hematocrit Auto (Bld) [Volum e fraction]on 06-10-2021 Hematocrit (Bld) [Volume fraction] 40.9 % 37-[address] [facility] Work Phone: [phone] Iron measurement (mass/mass) on 06-10-2021 Iron (Unsp spec) [Mass/Mass] 226 ug/dL 50-[address] [facility] Work Phone: [phone] Laboratory - Chemistry and C hemistry - challengeon 06-10-2021 ALP [Catalytic activity/Vol] 91 U/L 45-[address] [facility] Work Phone: [phone] ALT [Catalytic activity/Vol] 63 U/L 13-[address] [facility] Work Phone: [phone] CO2 [Moles/Vol] 31.0 mmol/L 21.0-32.[address] [facility] Work Phone: [phone] Globulin (S) [Mass/Vol] 3.6 g/dL 2.2-4.[address] [facility] Work Phone: [phone] Urea nitrogen/Creatinine [Mass ratio] 20.1 mg/mg 10-[address] [facility] Work Phone: [phone] Laboratory - Hematology and Cell countson 06-10-2021 Erythrocyte distribution width (RBC) [Entitic vol] 42.9 fL 35.1-43.[address] [facility] Work Phone: [phone] Erythrocyte distribution width (RBC) [Ratio] 11.9 % 11.6-14.[address] [facility] Work Phone: [phone] Immature granulocytes/100 WBC (Bld) 0.400 % 0.0-0.[address] [facility] Work Phone: [phone] Comment on above: IG% - Immature Granu locytes (promyelocytes, myelocytes and metamyelocytes) > 1% indicates that a LEFT SHIFT is Present. MCH (RBC) [Entitic mass] 33.0 pg 27.0-32.[address] [facility] Work Phone: [phone] Nucleated RBC/100 WBC (Bld) [Ratio] 0 % 0-[address] [facility] Work Phone: MCHC Auto (RBC) [Mass/Vol]on 06-10-2021 MCHC (RBC) [Mass/Vol] 34.0 g/dL 32-[address] [facility] Work Phone: No Panel Informationon 06-10 Estimated GFR (MDRD) Amer 108 mL/min >[address] [facility] Work Phone: Comment on above: GFR Calc Estimated GFR (MDRD) Non-Af Amer 90 mL/min >[address] [facility] Work Phone: [phone] Comment on above: Non- GFR Calc Total Iron Binding Capacity 297 ug/dL 250-[address] [facility] Work Phone: Platelets bldon 06-10-2021 Platelets (Bld) [#/Vol] 343 10*3/uL 150-[address] [facility] Work Phone: [phone] Serum or plasma albumin maximilian urement (mass/volume)on 06-10-2021 Albumin [Mass/Vol] 4.1 g/dL 3.2-5.0 [facility] Work Phone: Serum or plasma albumin/glob ulin mass ratioon 06-10-2021 Albumin/Globulin [Mass ratio] 1.1 {ratio} 0.9-2.[address] [facility] Work Phone: [phone] Serum or plasma calcium maximilian urement (mass/volume)on 06-10-2021 Calcium [Mass/Vol] 9.2 mg/dL 8.5-10.1 [facility] Work Phone: [phone] Serum or plasma creatinine m easurement (mass/volume)on 06-10-2021 Creatinine [Mass/Vol] 0.74 mg/dL 0.55-1.[address] [facility] Work Phone: Comment on above: The validity of the calculated GFR & GFRAA in patients over 70 years has not been determined. Clinical correlation is essential. Serum or plasma ferritin ankur surement (mass/volume)on 06-10-2021 Ferritin [Mass/Vol] 329 ng/mL 8-252 [facility] Work Phone: Serum or plasma iron saturat ion measurement (mass fraction)on 06-10-2021 Iron saturation [Mass fraction] 76.1 % 15.0-55.[address] [facility] Work Phone: Serum or plasma urea nitroge n measurement (mass/volume)on 06-10-2021 Urea nitrogen [Mass/Vol] 15 mg/dL 7-[address] [facility] Work Phone: Thin prep Papanicolaou smear with manual screeningon 06-10-2021 Thin prep Papanicolaou smear with manual screening 33 U/L 15-[address] [facility] Work Phone: Thin prep Papanicolaou smear with manual screening 3 5-[address] [facility] Work Phone: Absolute lymphocyte counton 05-13-2021 Lymphocytes Auto (Unsp spec) [#/Vol] 1.38 10*3/uL 0.83-4.[address] [facility] Basophil percentageon 2021 Basophils/100 WBC (Bld) 0.4 % 0-[address] [facility] Eosinophils/100 WBC (Bld) 2.4 % 0-[address] [facility] Neutrophils (Bld) [#/Vol] 2.6 10*3/uL 2.0-7.[address] [facility] Neutrophils/100 WBC (Bld) 57.0 % 47-[address] [facility] WBC (Bld) [#/Vol] 4.6 10*3/uL 4.4-11.0 [facility] Blood erythrocytes count (nu mber/volume)on 05-13-2021 RBC (Bld) [#/Vol] 3.71 10*6/uL 4.2-5.4 [facility] Blood hemoglobin measurement (mass/volume)on 05-13-2021 Hemoglobin (Bld) [Mass/Vol] 12.6 g/dL 12.0-15.[address] [facility] Blood lymphocytes/100 leukoc yteson 05-13-2021 Lymphocytes/100 WBC (Bld) 30.3 % 19-[address] [facility] Blood monocytes/100 leukocyt eson 05-13-2021 Monocytes/100 WBC (Bld) 9.7 % 0-[address] [facility] Blood platelet mean volumeon 05-13-2021 Platelet mean volume (Bld) [Entitic vol] 8.2 fL 6.2-12.[address] [facility] Determination of erythrocyte mean corpuscular volume (MCV)on 05-13-2021 MCV (RBC) [Entitic vol] 99.5 fL 81-[address] [facility] Hematocrit Auto (Bld) [Volum e fraction]on 05-13-2021 Hematocrit (Bld) [Volume fraction] 36.9 % 37-[address] [facility] Iron measurement (mass/mass) on 05-13-2021 Iron (Unsp spec) [Mass/Mass] 135 ug/dL 50-[address] [facility] Laboratory - Hematology and Cell countson 05-13-2021 Erythrocyte distribution width (RBC) [Entitic vol] 43.3 fL 35.1-43.[address] [facility] Erythrocyte distribution width (RBC) [Ratio] 11.9 % 11.6-14.[address] [facility] Immature granulocytes/100 WBC (Bld) 0.200 % 0.0-0.[address] [facility] Comment on above: IG% - Immature Granu locytes (promyelocytes, myelocytes and metamyelocytes) > 1% indicates that a LEFT SHIFT is Present. MCH (RBC) [Entitic mass] 34.0 pg 27.0-32.[address] [facility] Nucleated RBC/100 WBC (Bld) [Ratio] 0 % 0-[address] [facility] MCHC Auto (RBC) [Mass/Vol]on 05-13-2021 MCHC (RBC) [Mass/Vol] 34.1 g/dL 32-[address] [facility] No Panel Informationon 05-13 Total Iron Binding Capacity 298 ug/dL 250-[address] [facility] Platelets bldon 05-13-2021 Platelets (Bld) [#/Vol] 357 10*3/uL 150-[address] [facility] Serum or plasma ferritin ankur surement (mass/volume)on 05-13-2021 Ferritin [Mass/Vol] 231 ng/mL 8-252 [facility] Serum or plasma iron saturat ion measurement (mass fraction)on 05-13-2021 Iron saturation [Mass fraction] 45.3 % 15.0-55.[address] [facility] Basophil percentageon 2021 Bilirubin [Mass/Vol] 0.30 mg/dL 0.20-1.00 [facility] Comment on above: For patients on eltr ombopag therapy, use of Dimension [place] TBIL is not recommended. Chloride [Moles/Vol] 105 mmol/L 98-107 [facility] Glucose [Mass/Vol] 86 mg/dL 74-106 [facility] Potassium [Moles/Vol] 3.9 mmol/L 3.5-5.[address] [facility] Protein [Mass/Vol] 7.0 g/dL 6.4-8.2 [facility] Sodium [Moles/Vol] 135 mmol/L 136-145 [facility] Laboratory - Chemistry and C hemistry - challengeon 04-29-2021 ALP [Catalytic activity/Vol] 88 U/L 45-[address] [facility] ALT [Catalytic activity/Vol] 27 U/L 13-[address] [facility] CO2 [Moles/Vol] 26.0 mmol/L 21.0-32.[address] [facility] Globulin (S) [Mass/Vol] 3.5 g/dL 2.2-4.[address] [facility] Urea nitrogen/Creatinine [Mass ratio] 19.3 mg/mg 10-[address] [facility] No Panel Informationon 04-29 Estimated Creatinine Clearance Calc 86.10 ml/min [facility] Estimated GFR (MDRD) Amer 112 mL/min >[address] [facility] Comment on above: GFR Calc Estimated GFR (MDRD) Non-Af Amer 93 mL/min >[address] [facility] Comment on above: Non- GFR Calc Serum or plasma albumin maximilian urement (mass/volume)on 04-29-2021 Albumin [Mass/Vol] 3.5 g/dL 3.2-5.0 [facility] Serum or plasma albumin/glob ulin mass ratioon 04-29-2021 Albumin/Globulin [Mass ratio] 1.0 {ratio} 0.9-2.[address] [facility] Serum or plasma calcium maximilian urement (mass/volume)on 04-29-2021 Calcium [Mass/Vol] 9.0 mg/dL 8.5-10.1 [facility] Serum or plasma creatinine m easurement (mass/volume)on 04-29-2021 Creatinine [Mass/Vol] 0.72 mg/dL 0.55-1.[address] [facility] Comment on above: The validity of the calculated GFR & GFRAA in patients over 70 years has not been determined. Clinical correlation is essential. Serum or plasma urea nitroge n measurement (mass/volume)on 04-29-2021 Urea nitrogen [Mass/Vol] 14 mg/dL 7-[address] [facility] Thin prep Papanicolaou smear with manual screeningon 04-29-2021 Thin prep Papanicolaou smear with manual screening 21 U/L 15-[address] [facility] Thin prep Papanicolaou smear with manual screening 4 5-[address] [facility] Thin prep Papanicolaou smear with manual screening 160 U/L 84-[address] [facility] Clinical Summary: Aries santos 04-25-2021 MC75 OP Visit Invalid Interpretation Code [facility] Work Phone: Laboratory - Chemistry and C hemistry - challengeon 01-10-2021 Cobalamin (Vitamin B12) [Mass/Vol] 654 pg/mL 211-[address] [facility] Serum or plasma [id number] protein tumor marker measurement (units/volume)on 01-10-2021 AFP.tumor marker Qn 2.7 ng/mL 0.0-8.3 [facility] Comment on above: [employer] El ectrochemiluminescence Immunoassay(ECLIA)Values obtained with different assay methods or kits cannotbe used interchangeably. Results cannot be interpreted asabsolute evidence of the presence or absence of malignantdisease.This test is not interpretable in females.Performed at: [employer] [id number] Director: Daniel Valenzuela PhD, Phone: [phone] Serum or plasma folate measu rement (mass/volume)on 01-10-2021 Folate [Mass/Vol] 17.50 ng/mL 3.1-55.4 [facility] Vital Signs Date Time Vital Sign Value Performing Clinician Facility 04-23-2023 08:08-0500 Body height 165.[address] Lucia Muir Work Phone: [facility] 04-23-2023 08:08-0500 Body mass index (BMI) [Ratio] 27.3 kg/m2 Dr. Lucia Muir Work Phone: [facility] 04-23-2023 08:08-0500 Body weight 74.[address] Lucia Muir Work Phone: [facility] 04-23-2023 08:08-0500 Diastolic blood pressure 103 mm[Hg] Dr. Lucia Muir Work Phone: [facility] 04-23-2023 08:08-0500 Systolic blood pressure 157 mm[Hg] Dr. Lucia Muir Work Phone: [facility] 03-05-2023 12:26-0500 Diastolic blood pressure 100 mm[Hg] Dr. Lucia Muir Work Phone: [facility] 03-05-2023 12:26-0500 Heart rate 108 /min Dr. Lucia Muri Work Phone: [facility] 03-05-2023 12:26-0500 Respiratory rate 16 /min Dr. Lucia Muir Work Phone: [facility] 03-05-2023 12:26-0500 Systolic blood pressure 141 mm[Hg] Dr. Lucia Muir Work Phone: [facility] 03-05-2023 12:12-0500 Body height 165.[address] Lucia Muir Work Phone: [facility] 03-04-2023 10:35-0500 Body mass index (BMI) [Ratio] 27.9 kg/m2 Dr. Lucia Muir Work Phone: [facility] 03-04-2023 10:35-0500 Body temperature 98.9 [degF] Dr. Lucia Muir Work Phone: [facility] 03-04-2023 10:35-0500 Body weight 76.[address] Lucia Muir Work Phone: [facility] 03-04-2023 10:35-0500 Diastolic blood pressure 90 mm[Hg] Dr. Lucia Muir Work Phone: [facility] 03-04-2023 10:35-0500 Heart rate 86 /min Dr. Lucia Muir Work Phone: [facility] 03-04-2023 10:35-0500 Respiratory rate 18 /min Dr. Lucia Muir Work Phone: [facility] 03-04-2023 10:35-0500 SaO2% (BldA) [Mass fraction] 99 % Dr. Lucia Muir Work Phone: [facility] 03-04-2023 10:35-0500 Systolic blood pressure 148 mm[Hg] Dr. Lucia Muir Work Phone: [facility] 02-17-2022 14:25-0500 Body mass index (BMI) [Ratio] 26.6 kg/m2 Dr. Lucia Muir Work Phone: [facility] 02-17-2022 14:04-0500 Body height 165.[address] Lucia Muir Work Phone: [facility] 02-17-2022 14:01-0500 Body mass index (BMI) [Ratio] 28.3 kg/m2 Dr. Lucia Muir Work Phone: [facility] 02-17-2022 14:01-0500 Body temperature 98.3 [degF] Dr. Lucia Muir Work Phone: [facility] 02-17-2022 14:01-0500 Body weight 77.[address] Lucia Muir Work Phone: [facility] 02-17-2022 14:01-0500 Diastolic blood pressure 103 mm[Hg] Dr. Luica Muir Work Phone: [facility] 02-17-2022 14:01-0500 Heart rate 83 /min Dr. Lucia Muir Work Phone: [facility] 02-17-2022 14:01-0500 Respiratory rate 16 /min Dr. Lucia Muir Work Phone: [facility] 02-17-2022 14:01-0500 SaO2% (BldA) [Mass fraction] 99 % Dr. Lucia Muir Work Phone: [facility] 02-17-2022 14:01-0500 Systolic blood pressure 142 mm[Hg] Dr. Lucia Muir Work Phone: [facility] 01-09-2022 14:33-0500 Body height 165.[address] Lucia Muir Work Phone: [facility] Work Phone: 01-09-2022 14:28-0500 Body mass index (BMI) [Ratio] 27.8 kg/m2 Dr. Lucia Muir Work Phone: [facility] Work Phone: 01-09-2022 14:28-0500 Body temperature 98.4 [degF] Dr. Lucia Muir Work Phone: [facility] Work Phone: 01-09-2022 14:28-0500 Body weight 75.[address] Lucia Muir Work Phone: [facility] Work Phone: 01-09-2022 14:28-0500 Diastolic blood pressure 92 mm[Hg] Dr. Lucia Muir Work Phone: [facility] Work Phone: 01-09-2022 14:28-0500 Heart rate 76 /min Dr. Lucia Muir Work Phone: [facility] Work Phone: 01-09-2022 14:28-0500 Respiratory rate 16 /min Dr. Lucia Muir Work Phone: [facility] Work Phone: 01-09-2022 14:28-0500 SaO2% (BldA) [Mass fraction] 100 % Dr. Lucia Muir Work Phone: [facility] Work Phone: 01-09-2022 14:28-0500 Systolic blood pressure 139 mm[Hg] Dr. Lucia Muir Work Phone: [facility] Work Phone: 12-13-2021 08:42-0400 Body temperature 97.4 [degF] Dr. Lucia Muir Work Phone: [facility] Work Phone: 12-13-2021 08:42-0400 Diastolic blood pressure 84 mm[Hg] Dr. Lucia Muir Work Phone: [facility] Work Phone: 12-13-2021 08:42-0400 Heart rate 96 /min Dr. Lucia Muir Work Phone: [facility] Work Phone: 12-13-2021 08:42-0400 Respiratory rate 18 /min Dr. Lucia Muir Work Phone: [facility] Work Phone: 12-13-2021 08:42-0400 SaO2% (BldA) [Mass fraction] 99 % Dr. Lucia Muir Work Phone: [facility] Work Phone: 12-13-2021 08:42-0400 Systolic blood pressure 111 mm[Hg] Dr. Lucia Muir Work Phone: [facility] Work Phone: 12-13-2021 07:18-0400 Body height 165.[address] Lucia Muir Work Phone: [facility] Work Phone: 12-13-2021 07:18-0400 Body mass index (BMI) [Ratio] 26.6 kg/m2 Dr. Lucia Muir Work Phone: [facility] Work Phone: 12-13-2021 07:18-0400 Body weight 72.[address] Lucia Muir Work Phone: [facility] Work Phone: 11-20-2021 13:52-0400 Body height 165.[address] Lucia Muir Work Phone: [facility] Work Phone: 11-20-2021 13:52-0400 Body mass index (BMI) [Ratio] 27.8 kg/m2 Dr. Lucia Muir Work Phone: [facility] Work Phone: 11-20-2021 13:52-0400 Body temperature 98 [degF] Dr. Lucia Muir Work Phone: [facility] Work Phone: 11-20-2021 13:52-0400 Body weight 75.[address] Lucia Muir Work Phone: [facility] Work Phone: 11-20-2021 13:52-0400 Diastolic blood pressure 106 mm[Hg] Dr. Lucia Muir Work Phone: [facility] Work Phone: 11-20-2021 13:52-0400 Heart rate 67 /min Dr. Lucia Muir Work Phone: [facility] Work Phone: 11-20-2021 13:52-0400 Respiratory rate 16 /min Dr. Lucia Muir Work Phone: [facility] Work Phone: 11-20-2021 13:52-0400 SaO2% (BldA) [Mass fraction] 99 % Dr. Lucia Muir Work Phone: [facility] Work Phone: 11-20-2021 13:52-0400 Systolic blood pressure 145 mm[Hg] Dr. Lucia Muir Work Phone: [facility] Work Phone: 11-14-2021 15:26-0400 Body temperature 97.3 [degF] Dr. Lucia Muir Work Phone: [facility] 11-14-2021 15:26-0400 Heart rate 89 /min Dr. Lucia Muir Work Phone: [facility] 11-14-2021 15:26-0400 Respiratory rate 16 /min Dr. Lucia Muir Work Phone: [facility] 11-14-2021 15:26-0400 SaO2% (BldA) [Mass fraction] 100 % Dr. Lucia Muir Work Phone: [facility] 11-14-2021 15:11-0400 Body mass index (BMI) [Ratio] 26.6 kg/m2 Dr. Lucia Muir Work Phone: [facility] Work Phone: 11-14-2021 15:11-0400 Body weight 72.[address] Lucia Muir Work Phone: [facility] 11-14-2021 15:11-0400 Diastolic blood pressure 99 mm[Hg] Dr. Lucia Muir Work Phone: [facility] 11-14-2021 15:11-0400 Systolic blood pressure 140 mm[Hg] Dr. Lucia Muir Work Phone: [facility] 11-14-2021 14:28-0400 Body mass index (BMI) [Ratio] 27.8 kg/m2 Dr. Lucia Muir Work Phone: [facility] Work Phone: 11-14-2021 14:28-0400 Body temperature 98.7 [degF] Dr. Lucia Muir Work Phone: [facility] Work Phone: 11-14-2021 14:28-0400 Body weight 75.[address] Lucia Muir Work Phone: [facility] Work Phone: 11-14-2021 14:28-0400 Diastolic blood pressure 97 mm[Hg] Dr. Lucia Muir Work Phone: [facility] Work Phone: 11-14-2021 14:28-0400 Heart rate 65 /min Dr. Lucia Muir Work Phone: [facility] Work Phone: 11-14-2021 14:28-0400 Respiratory rate 15 /min Dr. Lucia Muir Work Phone: [facility] Work Phone: 11-14-2021 14:28-0400 SaO2% (BldA) [Mass fraction] 99 % Dr. Lucia Muir Work Phone: [facility] Work Phone: 11-14-2021 14:28-0400 Systolic blood pressure 141 mm[Hg] Dr. Lucia Muir Work Phone: [facility] Work Phone: 08-05-2021 12:25-0400 Body temperature 97.5 [degF] Dr. Lucia Muir Work Phone: [facility] Work Phone: 08-05-2021 12:25-0400 Diastolic blood pressure 103 mm[Hg] Dr. Lucia Muir Work Phone: [facility] Work Phone: 08-05-2021 12:25-0400 Heart rate 89 /min Dr. Lucia Muir Work Phone: [facility] Work Phone: 08-05-2021 12:25-0400 Respiratory rate 16 /min Dr. Lucia Muir Work Phone: [facility] Work Phone: 08-05-2021 12:25-0400 Systolic blood pressure 152 mm[Hg] Dr. Lucia Muir Work Phone: [facility] Work Phone: 08-05-2021 12:12-0400 Body height 165.[address] Lucia Muir Work Phone: [facility] Work Phone: 08-05-2021 10:52-0400 Body mass index (BMI) [Ratio] 27.1 kg/m2 Dr. Lucia Muir Work Phone: [facility] Work Phone: 08-05-2021 10:52-0400 Body temperature 98.4 [degF] Dr. Lucia Muir Work Phone: [facility] Work Phone: 08-05-2021 10:52-0400 Body weight 74.[address] Luica Muir Work Phone: [facility] Work Phone: 08-05-2021 10:52-0400 Diastolic blood pressure 99 mm[Hg] Dr. Lucia Muir Work Phone: [facility] Work Phone: 08-05-2021 10:52-0400 Heart rate 76 /min Dr. Lucia Muir Work Phone: [facility] Work Phone: 08-05-2021 10:52-0400 Respiratory rate 15 /min Dr. Lucia Muir Work Phone: [facility] Work Phone: 08-05-2021 10:52-0400 SaO2% (BldA) [Mass fraction] 100 % Dr. Lucia Muir Work Phone: [facility] Work Phone: 08-05-2021 10:52-0400 Systolic blood pressure 140 mm[Hg] Dr. Lucia Muir Work Phone: [facility] Work Phone: 08-05-2021 10:52-0400 Body mass index (BMI) [Ratio] 27.1 kg/m2 Dr. Lucia Muir Work Phone: [facility] Work Phone: 08-05-2021 10:52-0400 Body temperature 98.4 [degF] Dr. Lucia Muir Work Phone: [facility] Work Phone: 08-05-2021 10:52-0400 Body weight 74.[address] Lucia Muir Work Phone: [facility] Work Phone: 08-05-2021 10:52-0400 Diastolic blood pressure 99 mm[Hg] Dr. Lucia Muir Work Phone: [facility] Work Phone: 08-05-2021 10:52-0400 Heart rate 76 /min Dr. Lucia Muir Work Phone: [facility] Work Phone: 08-05-2021 10:52-0400 Respiratory rate 15 /min Dr. Lucia Muir Work Phone: [facility] Work Phone: 08-05-2021 10:52-0400 SaO2% (BldA) [Mass fraction] 100 % Dr. Lucia Muir Work Phone: [facility] Work Phone: 08-05-2021 10:52-0400 Systolic blood pressure 140 mm[Hg] Dr. Lucia Muir Work Phone: [facility] Work Phone: 06-10-2021 15:30-0400 Diastolic blood pressure 100 mm[Hg] Dr. Lucia Muir Work Phone: [facility] Work Phone: 06-10-2021 15:30-0400 Heart rate 88 /min Dr. Lucia Muir Work Phone: [facility] Work Phone: 06-10-2021 15:30-0400 Respiratory rate 16 /min Dr. Lucia Muir Work Phone: [facility] Work Phone: 06-10-2021 15:30-0400 SaO2% (BldA) [Mass fraction] 100 % Dr. Lucia Muir Work Phone: [facility] Work Phone: 06-10-2021 15:30-0400 Systolic blood pressure 119 mm[Hg] Dr. Lucia Muir Work Phone: [facility] Work Phone: 06-10-2021 15:18-0400 Body height 165.[address] Lucia Muir Work Phone: [facility] Work Phone: 06-10-2021 15:18-0400 Body mass index (BMI) [Ratio] 26.6 kg/m2 Dr. Lucia Muir Work Phone: [facility] Work Phone: 06-10-2021 15:18-0400 Body weight 72.[address] Lucia Muir Work Phone: [facility] Work Phone: 06-10-2021 14:21-0400 Body mass index (BMI) [Ratio] 26.6 kg/m2 Dr. Lucia Muir Work Phone: [facility] Work Phone: 06-10-2021 14:21-0400 Body temperature 98.7 [degF] Dr. Lucia Muir Work Phone: [facility] Work Phone: 06-10-2021 14:21-0400 Body weight 72.[address] Lucia Muir Work Phone: [facility] Work Phone: 06-10-2021 14:21-0400 Diastolic blood pressure 98 mm[Hg] Dr. Lucia Muir Work Phone: [facility] Work Phone: 06-10-2021 14:21-0400 Heart rate 75 /min Dr. Lucia Muir Work Phone: [facility] Work Phone: 06-10-2021 14:21-0400 Respiratory rate 15 /min Dr. Lucia Muir Work Phone: [facility] Work Phone: 06-10-2021 14:21-0400 SaO2% (BldA) [Mass fraction] 99 % Dr. Lucia Muir Work Phone: [facility] Work Phone: 06-10-2021 14:21-0400 Systolic blood pressure 137 mm[Hg] Dr. Lucia Muir Work Phone: [facility] Work Phone: 06-10-2021 14:21-0400 Body mass index (BMI) [Ratio] 26.6 kg/m2 Dr. Lucia Muir Work Phone: [facility] Work Phone: 06-10-2021 14:21-0400 Body temperature 98.7 [degF] Dr. Lucia Muir Work Phone: [facility] Work Phone: 06-10-2021 14:21-0400 Body weight 72.[address] Lucia Muir Work Phone: [facility] Work Phone: 06-10-2021 14:21-0400 Diastolic blood pressure 98 mm[Hg] Dr. Lucia Muir Work Phone: [facility] Work Phone: 06-10-2021 14:21-0400 Heart rate 75 /min Dr. Lucia Muir Work Phone: [facility] Work Phone: 06-10-2021 14:21-0400 Respiratory rate 15 /min Dr. Lucia Muir Work Phone: [facility] Work Phone: 06-10-2021 14:21-0400 SaO2% (BldA) [Mass fraction] 99 % Dr. Lucia Muir Work Phone: [facility] Work Phone: 06-10-2021 14:21-0400 Systolic blood pressure 137 mm[Hg] Dr. Lucia Muir Work Phone: [facility] Work Phone: 06-04-2021 15:25-0400 Body mass index (BMI) [Ratio] 26.6 kg/m2 Dr. Lucia Muir Work Phone: [facility] Work Phone: 06-04-2021 15:25-0400 Body weight 72.[address] Lucia Muir Work Phone: [facility] Work Phone: 06-04-2021 15:25-0400 Diastolic blood pressure 115 mm[Hg] Dr. Lucia Muir Work Phone: [facility] Work Phone: 06-04-2021 15:25-0400 Respiratory rate 18 /min Dr. Lucia Muir Work Phone: [facility] Work Phone: 06-04-2021 15:25-0400 Systolic blood pressure 159 mm[Hg] Dr. Lucia Muir Work Phone: [facility] Work Phone: 06-04-2021 15:25-0400 Body height 165.[address] Lucia Muir Work Phone: [facility] Work Phone: 06-04-2021 15:25-0400 Body mass index (BMI) [Ratio] 26.6 kg/m2 Dr. Lucia Muir Work Phone: [facility] Work Phone: 06-04-2021 15:25-0400 Body weight 72.[address] Lucia Muir Work Phone: [facility] Work Phone: 06-04-2021 15:25-0400 Diastolic blood pressure 115 mm[Hg] Dr. Lucia Muir Work Phone: [facility] Work Phone: 06-04-2021 15:25-0400 Respiratory rate 18 /min Dr. Lucia Muir Work Phone: [facility] Work Phone: 06-04-2021 15:25-0400 Systolic blood pressure 159 mm[Hg] Dr. Lucia Muir Work Phone: [facility] Work Phone: 05-13-2021 13:44-0400 Body mass index (BMI) [Ratio] 26.8 kg/m2 Dr. Lucia Muir Work Phone: [facility] Work Phone: 05-13-2021 13:44-0400 Body temperature 98.9 [degF] Dr. Lucia Muir Work Phone: [facility] Work Phone: 05-13-2021 13:44-0400 Body weight 73.[address] Lucia Muir Work Phone: [facility] Work Phone: 05-13-2021 13:44-0400 Diastolic blood pressure 95 mm[Hg] Dr. Lucia Muir Work Phone: [facility] Work Phone: 05-13-2021 13:44-0400 Heart rate 88 /min Dr. Lucia Muir Work Phone: [facility] Work Phone: 05-13-2021 13:44-0400 Respiratory rate 16 /min Dr. Lucia Muir Work Phone: [facility] Work Phone: 05-13-2021 13:44-0400 SaO2% (BldA) [Mass fraction] 100 % Dr. Lucia Muir Work Phone: [facility] Work Phone: 05-13-2021 13:44-0400 Systolic blood pressure 132 mm[Hg] Dr. Lucia Muir Work Phone: [facility] Work Phone: 05-13-2021 13:44-0400 Body mass index (BMI) [Ratio] 26.8 kg/m2 Dr. Lucia Muir Work Phone: [facility] Work Phone: 05-13-2021 13:44-0400 Body temperature 98.9 [degF] Dr. Lucia Muir Work Phone: [facility] Work Phone: 05-13-2021 13:44-0400 Body weight 73.[address] Lucia Muir Work Phone: [facility] Work Phone: 05-13-2021 13:44-0400 Diastolic blood pressure 95 mm[Hg] Dr. Lucia Muri Work Phone: [facility] Work Phone: 05-13-2021 13:44-0400 Heart rate 88 /min Dr. Lucia Muir Work Phone: [facility] Work Phone: 05-13-2021 13:44-0400 Respiratory rate 16 /min Dr. Lucia Muir Work Phone: [facility] Work Phone: 05-13-2021 13:44-0400 SaO2% (BldA) [Mass fraction] 100 % Dr. Lucia Muir Work Phone: [facility] Work Phone: 05-13-2021 13:44-0400 Systolic blood pressure 132 mm[Hg] Dr. Lucia Muir Work Phone: [facility] Work Phone: 05-02-2021 13:23-0500 Body mass index (BMI) [Ratio] 26.6 kg/m2 Dr. Lucia Muir Work Phone: [facility] Work Phone: 05-02-2021 13:23-0500 Body temperature 98.2 [degF] Dr. Lucia Muir Work Phone: [facility] Work Phone: 05-02-2021 13:23-0500 Body weight 72.[address] Lucia Muir Work Phone: [facility] Work Phone: 05-02-2021 13:23-0500 Diastolic blood pressure 85 mm[Hg] Dr. Lucia Muir Work Phone: [facility] Work Phone: 05-02-2021 13:23-0500 Heart rate 84 /min Dr. Lucia Muir Work Phone: [facility] Work Phone: 05-02-2021 13:23-0500 Respiratory rate 16 /min Dr. Lucia Muir Work Phone: [facility] Work Phone: 05-02-2021 13:23-0500 SaO2% (BldA) [Mass fraction] 98 % Dr. Lucia Muir Work Phone: [facility] Work Phone: 05-02-2021 13:23-0500 Systolic blood pressure 117 mm[Hg] Dr. Lucia Muir Work Phone: [facility] Work Phone: 04-29-2021 13:00-0500 Body mass index (BMI) [Ratio] 27.8 kg/m2 Dr. Lucia Muir Work Phone: [facility] Work Phone: 04-29-2021 13:00-0500 Body temperature 97.2 [degF] Dr. Lucia Muir Work Phone: [facility] Work Phone: 04-29-2021 13:00-0500 Body weight 73.[address] Lucia Muir Work Phone: [facility] Work Phone: 04-29-2021 13:00-0500 Diastolic blood pressure 94 mm[Hg] Dr. Lucia Muir Work Phone: [facility] Work Phone: 04-29-2021 13:00-0500 Heart rate 84 /min Dr. Lucia Muir Work Phone: [facility] Work Phone: 04-29-2021 13:00-0500 Respiratory rate 15 /min Dr. Lucia Muir Work Phone: [facility] Work Phone: 04-29-2021 13:00-0500 SaO2% (BldA) [Mass fraction] 100 % Dr. Lucia Muir Work Phone: [facility] Work Phone: 04-29-2021 13:00-0500 Systolic blood pressure 130 mm[Hg] Dr. Lucia Muir Work Phone: [facility] Work Phone: 04-14-2021 09:00-0500 Body mass index (BMI) [Ratio] 27.4 kg/m2 Dr. Lucia Muir Work Phone: [facility] Work Phone: 04-14-2021 09:00-0500 Body temperature 97.2 [degF] Dr. Lucia Muir Work Phone: [facility] Work Phone: 04-14-2021 09:00-0500 Body weight 72.[address] Lucia Muir Work Phone: [facility] Work Phone: 04-14-2021 09:00-0500 Diastolic blood pressure 110 mm[Hg] Dr. Lucia Muir Work Phone: [facility] Work Phone: 04-14-2021 09:00-0500 Heart rate 84 /min Dr. Lucia Muir Work Phone: [facility] Work Phone: 04-14-2021 09:00-0500 Respiratory rate 15 /min Dr. Lucia Muir Work Phone: [facility] Work Phone: 04-14-2021 09:00-0500 SaO2% (BldA) [Mass fraction] 97 % Dr. Lucia Muir Work Phone: [facility] Work Phone: 04-14-2021 09:00-0500 Systolic blood pressure 147 mm[Hg] Dr. Lucia Muir Work Phone: [facility] Work Phone: 03-12-2021 14:02-0500 Body mass index (BMI) [Ratio] 27.6 kg/m2 Dr. Lucia Muir Work Phone: [facility] Work Phone: 03-12-2021 14:02-0500 Body temperature 98.2 [degF] Dr. Lucia Muir Work Phone: [facility] Work Phone: 03-12-2021 14:02-0500 Body weight 73.[address] Lucia Muir Work Phone: [facility] Work Phone: 03-12-2021 14:02-0500 Diastolic blood pressure 90 mm[Hg] Dr. Lucia Muir Work Phone: [facility] Work Phone: 03-12-2021 14:02-0500 Heart rate 70 /min Dr. Lucia Muir Work Phone: [facility] Work Phone: 03-12-2021 14:02-0500 Respiratory rate 15 /min Dr. Lucia Muir Work Phone: [facility] Work Phone: 03-12-2021 14:02-0500 SaO2% (BldA) [Mass fraction] 99 % Dr. Lucia Muir Work Phone: [facility] Work Phone: 03-12-2021 14:02-0500 Systolic blood pressure 136 mm[Hg] Dr. Lucia Muir Work Phone: [facility] Work Phone: NEGATED: Highlighted [id number] 13:0500 Body height 162.56 cm Yadira Wood [employer] [facility] Work Phone: NEGATED: Highlighted [id number] 13:050 Body height 163 cm Yadira Wood LPN [facility] Work Phone: NEGATED: Highlighted [id number] 13:02-0500 Body mass index (BMI) [Ratio] 28.6 kg/m2 Yadira Wood [facility] Work Phone: NEGATED: Highlighted [id number] 13:02-0500 Body weight 75.3 kg Yadira Wood GLOBAL CATEGORY MANAGER [facility] Work Phone: NEGATED: Highlighted [id number] 13:0500 Body weight 75 kg Yadira Wood GLOBAL CATEGORY MANAGER [facility] Work Phone: Encounters Encounter Date Encounter Type Care Provider Facility Start: 08-15-2024 [facility] Start: 03-08-2024 End: 03-08-2024 [facility] Start: 11-04-2023 End: 11-04-2023 Emergency department patient visit Tyrone Dunlap Facility:[facility] Start: 09-23-2023 End: 09-23-2023 [facility] Start: 06-03-2023 End: 06-03-[address] Lucia Muir Work Phone: [facility] Work Phone: Start: 06-03-2023 End: 06-03-[address] Lucia Muir Work Phone: [facility]-Radiology, [facility] Work Phone: Start: 04-23-2023 End: 04-23-[address] Lucia Muir Work Phone: [facility] [place] Work Phone: Start: 03-09-2023 End: 03-09-[address] Lucia Muir Work Phone: [facility] Work Phone: Start: 03-09-2023 End: 03-09-[address] Lucia Muir Work Phone: [facility], [facility] Work Phone: Start: 03-05-[address] Lucia Muir Work Phone: [facility] Start: 03-04-2023 End: 03-04-[address] Lucia Muir Work Phone: [facility] Work Phone: Start: 03-03-2023 End: 03-03-[address] Lucia Muir Work Phone: [facility] Work Phone: Start: 03-03-2023 End: 03-03-[address] [facility]: Start: 12-01-2022 End: 12-01-[address] [facility] Start: 10-06-2022 End: 10-06-[address] [facility] Work Phone: Start: 10-06-2022 End: 10-06-2022 Patient encounter procedure [facility] Work Phone: Start: 09-10-2022 End: 09-10-[address] [facility] Work Phone: Start: 09-10-2022 End: 09-10-2022 Patient encounter procedure [facility]-Outpatient Breast Imaging Work Phone: Start: 08-11-2022 End: 08-11-2022 [facility] Start: 06-09-2022 End: 06-09-[address] Lucia Muir Work Phone: [facility] Work Phone: Start: 06-09-2022 End: 06-09-[address] [facility] Start: 04-14-2022 End: 04-14-[address] Lucia Muir Work Phone: [facility] Start: 02-17-[address] Lucia Muir Work Phone: [facility] Start: 02-17-2022 End: 02-17-[address] Lucia Muir Work Phone: [facility] Start: 02-17-2022 End: 02-17-[address] Lucia Muir Work Phone: [facility] Work Phone: Start: 02-17-2022 End: 02-17-[address] [facility] Start: 01-09-2022 End: 01-09-[address] Lucia Muir Work Phone: [facility] Start: 01-09-2022 End: 01-09-[address] Lucia Muir Work Phone: [facility] Work Phone: Start: 01-09-2022 End: 01-09-[address] Lucia Muir Work Phone: [facility]Laboratory Start: 12-19-2021 End: 12-19-[address] Lucia Muir Work Phone: [facility], [facility] Start: 12-13-2021 Non-patient / Non-visit Dr. Junie Muir Work Phone: [facility] Start: 12-13-2021 End: 12-13-2021 Admission to same day surgery center Dr. Lucia Muir Work Phone: [facility]-Endoscopy Start: 12-13-2021 End: 12-13-[address] Lucia Muir Work Phone: [facility] Work Phone: Start: 11-20-2021 End: 11-20-[address] Lucia Muir Work Phone: [facility] Start: 11-14-[address] Lucia Muir Work Phone: [facility] Start: 11-14-2021 End: 11-14-[address] Lucia Muir Work Phone: [facility] Start: 11-14-2021 End: 11-14-[address] Lucia Muir Work Phone: [facility] Work Phone: Start: 11-14-2021 End: 11-14-[address] Lucia Muir Work Phone: [facility]Laboratory Start: 09-26-2021 End: 09-26-[address] Lucia Muir Work Phone: [facility]Labor[facility] Start: 09-11-2021 End: 09-11-[address] Lucia Muir Work Phone: [facility] Start: 08-30-2021 End: 08-30-[address] [facility] Start: 08-14-2021 End: 08-14-[address] Lucia Muir Work Phone: [facility]-Outpatient Breast Imaging Start: 08-05-[address] Lucia Muir Work Phone: [facility] Start: 08-05-2021 End: 08-05-[address] Lucia Muir Work Phone: [facility] Start: 08-02-2021 End: 08-02-[address] [facility] Start: 07-16-2021 End: 07-16-[address] Lucia Muir Work Phone: [facility] Start: 07-08-2021 End: 07-08-[address] [facility] Start: 06-17-2021 End: 06-17-[address] Lucia Muir Work Phone: [facility] Start: 06-10-[address] Lucia Muir Work Phone: [facility] Start: 06-10-2021 End: 06-10-[address] Lucia Muir Work Phone: [facility] Start: 06-10-2021 End: 06-10-[address] [facility] Start: 06-04-2021 End: 06-04-[address] Lucia Muir Work Phone: [facility] Start: 06-04-2021 End: 06-04-[address] Lucia Muir Work Phone: [facility]-Laboratory, Specimen Start: 06-04-[address] Lucia Muir Work Phone: [facility]-Physical Therapy Start: 05-13-[address] Lucia Muir Work Phone: [facility] Start: 05-13-2021 End: 05-13-[address] Lucia Muir Work Phone: [facility] Start: 04-29-2021 End: 04-29-[address] Lucia Muir Work Phone: [facility] Start: 04-25-2021 End: 04-25-2021 Pt evaluation Luiza Lemus SUPERVISOR [employer]Y CHANGE CLERKS-TEAM COORDINATOR Work Phone: [facility] Work Phone: Start: 04-14-2021 End: 04-14-2021 Emergency department patient visit Dr. Lucia Muir Work Phone: [facility]-Emergency Department Start: 03-12-2021 End: 03-12-[address] Lucia Muir Work Phone: [facility] Start: 02-12-2021 End: 02-12-[address] Lucia Muir Work Phone: [facility]-Massage Therapy, [facility] Procedures Date Procedure Procedure Detail Performing Clinician Start: 06-03-2023 Plain x-ray of wrist Dr Alexa Muir Work Phone: Start: 03-09-2023 Ultrasound elastogra phy of liver Dr. Lucia Muir Work Phone: Start: 09-10-2022 Screening mammography Start: 12-19-[address] Lucia Muir Work Phone: Start: 12-13-[address] Lucia mahmood Work Phone: Start: 09-11-2021 X-ray of cervical spine Dr. Lucia Muir Work Phone: Start: 08-14-2021 Screening mammography Adri Muir Work Phone: Start: 06-17-2021 X-ray of cervical spine Dr. Lucia Muir Work Phone: Start: 04-25-2021 End: 04-26-2021 BP scrn no perf at interval Luiza Lemus SUPERVISOR POL[employer] CHANGE CLERKS-TEAM COORDINATOR Work Phone: Start: 04-25-2021 End: 04-26-2021 Calc BMI out nrm theresa nof/u Luiza Lemus SUPERVISOR [employer] CHANGE CLERKS-TEAM COORDINATOR Work Phone: Start: 04-25-2021 End: 04-26-2021 Current tobacco non-user cad cap copd pv dm Luiza Lemus SUPERVISOR [employer] CHANGE CLERKS-TEAM COORDINATOR Work Phone: Start: 04-25-2021 End: 04-26-2021 Docrev cur meds by china Lemus SUPERVISOR [employer] CHANGE CLERKS-TEAM COORDINATOR Work Phone: Start: 04-25-2021 End: 04-26-2021 Pain doc pos and plan Luiza Lemus SUPERVISOR [employer] CH[employer] CLERKS-TEAM COORDINATOR Work Phone: Start: 04-25-2021 End: 04-26-2021 Patient encounter procedure Luiza Lemus SUPERVISOR [employer] CHANGE CLERKS-TEAM COORDINATOR Work Phone: Start: 04-25-2021 End: 04-25-2021 Radex spine cervical 2 or 3 views Luiza Lemus SUPERVISOR [employer] CHANGE CLERKS-TEAM COORDINATOR Work Phone: NEGATED: Highlighted rowStart: 04-25-2021 End: 04-25-2021 Documentation of current medications Yadira Wood LPN Plan of Treatment Date Care Activity Detail Author Start: 03-04-[address] [facility] Start: 02-17-[address] [facility] Start: 12-13-2021 Colonoscopy w/biopsy single/multiple COLONOSCOPY AND BIOPSY [facility] Work Phone: Start: 12-13-2021 Patient discharge [facility] Work Phone: Start: 11-14-[address] [facility] Start: 08-05-[address] [facility] Start: 06-25-2021 End: 06-25-2021 Patient encounter procedure [facility] Work Phone: Start: 06-10-[address] [facility] Start: 05-06-[address] [facility] Start: 04-29-[address] [facility] CBC W Auto Different ial panel - Blood [facility] Work Phone: CBC W Auto Different ial panel - Blood [facility] CT Abdomen [facility] Work Phone: Ferritin [Mass/volum e] in Serum or Plasma [facility] Work Phone: Ferritin [Mass/volum e] in Serum or Plasma [facility] Iron and Iron bindin g capacity panel - Serum or Plasma [facility] Work Phone: Lactate dehydrogenas e measurement [facility] Work Phone: Lactate dehydrogenas e measurement [facility] LDH [facility] Work Phone: Patient Education ED Post Op Wou nd Check, Pain [facility] Work Phone: Patient referral [facility] Work Phone: [facility] Immunizations Immunization Date Immunization Notes Care Provider Fa cility 01-30-2022 influenza, injectabl e, quadrivalent, preservative free Dr. Lucia Muir Work Phone: [facility] 01-30-2022 influenza, seasonal, injectable Dr. Lucia Muir Work Phone: [facility] 01-21-2021 influenza, injectabl e, quadrivalent, preservative free Dr. Lucia Muir Work Phone: [facility] 01-21-2021 influenza, seasonal, injectable Dr. Lucia Muir Work Phone: [facility] 11-29-2019 influenza, injectabl e, quadrivalent, preservative free Dr. Lucia Muir Work Phone: [facility] 11-29-2019 influenza, seasonal, injectable Dr. Lucia Muir Work Phone: [facility] 12-21-2018 influenza, injectabl e, quadrivalent, preservative free Dr. Lucia Muir Work Phone: [facility] 12-21-2018 influenza, seasonal, injectable Dr. Lucia Muir Work Phone: [facility] 12-14-2017 influenza, injectabl e, quadrivalent, preservative free Dr. Lucia Muir Work Phone: [facility] 12-14-2017 influenza, seasonal, injectable Dr. Lucia Muir Work Phone: [facility] 12-15-2016 influenza, injectabl e, quadrivalent, preservative free Dr. Lucia Muir Work Phone: [facility] 12-15-2016 influenza, seasonal, injectable Dr. Lucia Muir Work Phone: [facility] 12-06-2015 influenza, injectabl e, quadrivalent, preservative free Dr. Lucia Muir Work Phone: [facility] 12-06-2015 influenza, seasonal, injectable Dr. Lucia Muir Work Phone: [facility] 11-29-2014 influenza, injectabl e, quadrivalent, preservative free Dr. Lucia Muir Work Phone: [facility] 11-29-2014 influenza, seasonal, injectable Dr. Lucia Muir Work Phone: [facility] 12-08-2013 influenza, injectabl e, quadrivalent, preservative free Dr. Lucia Muir Work Phone: [facility] 12-08-2013 influenza, seasonal, injectable Dr. Lucia Muir Work Phone: [facility] Payers Date Payer Category Payer Self-pay [id number] 2023 Unknown [id number] 2013 [id number] Unknown [id number] Unknown [id number] Unknown [id number] Unknown [id number] Social History Date Type Detail Facility Start: 06-04-2021 End: 04-23-2023 Assertion Unknown if ever smoked [facility] Work Phone: Start: 1975 Sex Assigned At Female W [facility] Goals Date Patient Goal Desired Activity /State Mental Status Date Assessment Result Facility 03-05-2023 Cognitive function Awake;Alert;A ppropriate;Follow s Commands [facility] Work Phone: 02-17-2022 Cognitive function Level Of Cons ciousness Awake;Alert;Appropriate;Follow s Commands [facility] Work Phone: 12-13-2021 Cognitive function Voice/Name;Touch/Shaki ng [facility] Work Phone: 11-14-2021 Cognitive function Voice/Name [facility] Work Phone: 08-05-2021 Cognitive function Voice/Name [facility] Work Phone: 06-10-2021 Cognitive function Voice/Name [facility] Work Phone: 05-02-2021 Cognitive function Voice/Name [facility] Work Phone: 04-14-2021 Cognitive function Level Of Cons ciousness Awake;Alert;Appropriate;Follow s Commands [facility] Work Phone: Clinical Notes Note Date & Type Note Facility Evaluation note There may be informa tion available, but it has not been provided by the sender. 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 Thrombosed external hemorrhoids acute Thrombosed external hemorrhoids acute Hemochromatosis associated 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 [facility] Work Phone: Evaluation note* Diagnosis Onset Date Resolution Status Thrombosed external hemorrhoids acute 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 Thrombosed external hemorrhoids acute Thrombosed external hemorrhoids acute Hemochromatosis associated 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 [facility] Work Phone: Evaluation note* Diagnosis Onset Date Resolution Status 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 Frequent loose stools acute Hemochromatosis associated 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 [facility] Work Phone: Evaluation note* Diagnosis Onset Date Resolution Status 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 Frequent loose stools acute 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 Frequent loose stools acute Hemochromatosis associated 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 [facility] Work Phone: Evaluation note* Diagnosis Onset Date Resolution Status Frequent loose stools acute 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 Frequent loose stools acute Hemochromatosis associated 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 [facility] Work Phone: Evaluation note* Diagnosis Onset Date Resolution Status Frequent loose stools acute 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 Work Phone: Evaluation noteNo assessment information available 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 Work Phone[facility] Work Phone: Instructions* Instruction Description Start Date Completed [facility] Work Phone: Chief Complaint Chief Complaint Description [...] by the author as of Advance Directives No Advanced Directives Records Found Advance Directive Response Recorded Date/ Time Advance Directives No December 12:06pm Living Will No April 14, 11:32am Power of Food Photographer No April 14, 2021 11:32am Advance Directive Response Recorded Date/ Time Advance Directives No October 3:37pm Living Will No November 14, 2021 3:37pm Power of Food Photographer No October 3:37pm Advance Directive Response Recorded Date/ Time Advance Directives No October 3:37pm Living Will No December 11 11:53am Power of Food Photographer No December 11, 2021 11:53am Advance Directive Response Recorded Date/ Time Advance Directives No October 2:37pm Living Will No December 11 10:53am Power of Food Photographer No December 11, 2021 10:53am Family History No Family History Records Found Relationship Condition Age at Onset Recorded Date/T greta father Hypertension Unknown mother Hypertension Unknown sister Hypertension Unknown Chief Complaint and Reason for Visit Chief Complaint NECK PAIN. 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 Thrombosed external hemorrhoids Thrombosed external hemorrhoids Hemochromatosis associated 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 Chief Complaint [facility] HEADACHE 6[facility] PHLEBO 2[facility] PHLEBO NECK PAIN,S/P SURGERY 04/08/21/PT HAS RX thrombosed hemorrhoid EORDER recheck hemorrhoids [facility] RECHECK HEMORRHOIDS S/P CERVICAL FUSION Reason for Visit 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 Thrombosed external hemorrhoids Thrombosed external hemorrhoids Hemochromatosis associated 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 Thrombosed external hemorrhoids Chief Complaint HEADACHE 6[facility] PHLEBO 2[facility] PHLEBO NECK PAIN,S/P SURGERY 04/08/21/PT HAS RX thrombosed hemorrhoid EORDER recheck hemorrhoids [facility] RECHECK HEMORRHOIDS S/P CERVICAL FUSION E ORDERS RECHECK HEMORRHOIDS Reason for Visit 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 Thrombosed external hemorrhoids Thrombosed external hemorrhoids Hemochromatosis associated 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 Thrombosed external hemorrhoids Thrombosed external hemorrhoids Chief Complaint HEADACHE 6WKS LABS [facility] 2WKS LABS [facility] NECK PAIN,S/P SURGERY 04/08/21PT HAS RX thrombosed hemorrhoid EORDER recheck hemorrhoids 4WKS LABS RECHECK HEMORRHOIDS S/P CERVICAL FUSION E ORDERS RECHECK HEMORRHOIDS 4WKS LABS PRIOR [facility]LE[facility] LABS Reason for Visit 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 Thrombosed external hemorrhoids Thrombosed external hemorrhoids Hemochromatosis associated 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 Thrombosed external hemorrhoids Thrombosed external hemorrhoids Chief Complaint 2WKS LABS [place] NECK PAIN,S/P SURGERY 04/08/21PT HAS RX thrombosed hemorrhoid EORDER recheck hemorrhoids 4WKS LABS RECHECK HEMORRHOIDS S/P CERVICAL FUSION E ORDERS RECHECK HEMORRHOIDS 4WKS LABS PRIOR [facility] LABS SCREENING Reason for Visit 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 Thrombosed external hemorrhoids Thrombosed external hemorrhoids Hemochromatosis associated 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 Thrombosed external hemorrhoids Thrombosed external hemorrhoids Hemochromatosis associated 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 Chief Complaint NECK PAIN,S/P SURGER Y 04/08/21PT HAS RX thrombosed hemorrhoid EORDER recheck hemorrhoids 4WKS LABS RECHECK HEMORRHOIDS S/P CERVICAL FUSION E ORDERS RECHECK HEMORRHOIDS 4WKS LABS PRIOR [facility] LABS SCREENING Reason for Visit Thrombosed external hemorrhoids Thrombosed external hemorrhoids Hemochromatosis associated 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 Thrombosed external hemorrhoids Thrombosed external hemorrhoids Hemochromatosis associated 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 Chief Complaint EORDER recheck hemorrhoids 4WKS LABS RECHECK HEMORRHOIDS S/P CERVICAL FUSION E ORDERS RECHECK HEMORRHOIDS 4WKS LABS PRIOR [facility] LABS SCREENING Reason for Visit Thrombosed external hemorrhoids Hemochromatosis associated 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 Thrombosed external hemorrhoids Thrombosed external hemorrhoids Hemochromatosis associated 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 Chief Complaint 4WKS LABS PRIOR PHLE SYMONE SCREENING INT LABS LABS IN THE AM [facility]LE[facility] LABS Reason for Visit 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 Frequent loose stools Hemochromatosis associated 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 Chief Complaint 4WKS LABS PRIOR PHLE SYMONE SCREENING INT LABS LABS IN THE AM [facility] LABS cscope - abd pain, tarry diarrhea Reason for Visit 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 Frequent loose stools Hemochromatosis associated 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 Frequent loose stools Hemochromatosis associated 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 Chief Complaint INT LABS LABS IN THE AM [facility] LABS cscope - abd pain, tarry diarrhea Reason for Visit Frequent loose stool s Hemochromatosis associated 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 Frequent loose stools Hemochromatosis associated 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 Chief Complaint INT LABS LABS IN THE AM [facility] LABS cscope - abd pain, tarry diarrhea Hereditary hemochromatosis EORDERS 8WKS LABS IN AM REVIEW US Reason for Visit Frequent loose stool s Hemochromatosis associated 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 Frequent loose stools 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 Chief Complaint INT LABS LABS IN THE AM [facility]LE[facility] cscope - abd pain, tarry diarrhea Hereditary hemochromatosis EORDERS 8WKS LABS IN AM REVIEW US 2MO LABS IN AM [facility] LABS Reason for Visit Frequent loose stool s Hemochromatosis associated 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 Frequent loose stools 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 Labial abscess Summary Purpose Additional Source Comments Reason for Visit (unrecogniz ed section and content) Reason For Visit Description Postop - 1st visit Preliminary reason f or visit data, not yet signed by the author as of neck post Exploration of ant erior cervical [...] one at C7 for fixation on 04/08/2021 Goals (unrecognized section and content) Goals may be documented in a n alternate sectionGoals may be documented in an alternate sectionGoals may be documented in an alternate sectionGoals may be documented in an alternate sectionGoals may be documented in an alternate sectionGoals may be documented in an alternate sectionGoals may be documented in an alternate sectionGoals may be documented in an alternate sectionGoals may be documented in an alternate sectionGoals may be documented in an alternate sectionGoals may be documented in an alternate sectionGoals may be documented in an alternate sectionGoals may be documented in an alternate sectionGoals may be documented in an alternate sectionGoals may be documented in an alternate sectionGoals may be documented in an alternate sectionGoals may be documented in an alternate section Care Teams (unrecognized sec tion and content) Team Status: Active Member Role Status Dates Dr. Lucia Muir DO Family Provider Active Dr. Lucia Muir DO Primary Care Provider Active Team Status: Inactive Member Role Status Dates Dr. Lucia Muir DO Primary Care Provider, Referring P milesder Active Dr. Dae Long MD Attending Provider Active Team Status: Active Member Role Status Dates Dr. Lucia Muir DO Primary Care Provider Active Dr. Dae Long MD Attending Provider, Referring Pro vider Active Team Status: Inactive Member Role Status Dates Dr. Lucia Muir DO Primary Care Provider Active Dr. Dae Long MD Attending Provider Active Team Status: Inactive Member Role Status Dates Dr. Lucia Muir DO Primary Care Provider Active Dr. Dae Long MD Attending Provider, Referring Pro vider Active Team Status: Inactive Member Role Status Dates Dr. Lucia Muir , DO Primary Care Provide r, Attending Provider, Referring Provider Active Team Status: Inactive Member Role Status Dates Dr. Lucia Muir , DO Primary Care Provider Active Lavonne Albert RECYCLING WORKER, RECYCLING WORKER-C Attending Provider, Referring Provider Active Dr. Dae Long MD Other Provider Active Team Status: Inactive Member Role Status Dates Dr. Lucia Muir DO Primary Care Provider, Referring P rovider Active Dr. Tash Lewis , DO Attending Provider Activ e Team Status: Inactive Member Role Status Dates Dr. Lucia Muir DO Primary Care Provide r, Attending Provider, Referring Provider Active Dr. Dae Long MD Other Provider Active INFORMATION SOURCE (unrecogn ized section and content) DATE CREATED AUTHOR 08/16/2024 [facility] FOR RECORDS PERTAINING TO PATIENTS WHO ARE [...] BE BASED ON THE PRIMARY CLINICAL RECORDS. [employer] provides no warranty or guarantee of the accuracy or completeness of information in this document.
--- NOTE | 2024-09-16 06:17 | CT_ITS ---
PROCEDURE: LIMITED CHEST CT CARDIAC ONLY 09/16/2024 REASON FOR EXAM: FAMILY HX TECHNIQUE: LIMITED CHEST CT CARDIAC ONLY CONTRAST: None One or more dose reduction techniques were used (e.g., Automated exposure control, adjustment of the mA and/or kV according to patient size, use of iterative reconstruction technique). RADIATION DOSE SUMMARY: CTDlvol: 12.19 mGy DLP: 243.79 mGycm COMPARISON: None FINDINGS: No coronary artery calcification seen. The heart is nonenlarged. The lungs are clear. CT/Limited Chest CT Cardiac Only IMPRESSION: No coronary artery calcification is seen. Reading Location: [place] [id number]
--- NOTE | 2024-09-16 16:55 | CA.SCORE ---
Calcium Scoring Date of Study:: 09/16/24 Indications Indications: Family history Coronary Calcium Scoring: High-resolution Computed Tomographic imaging of the chest was performed on [09/16/2024], with particular attention paid to the coronary arteries. Images from the examination were analyzed for the presence and extent of coronary artery calcification , using coronary calcium quantification software. The patient tolerated the procedure well and there were no complications. The results of the coronary calcification analysis are provided below. Findings Coronary Artery Left Main (LM): 0 Left Anterior Descending (LAD): 0 Left Circumflex (LCX): 0 Right Coronary Artery (RCA): 0 Total Agatston Score: 0 Percentile Rankinth percentile Calcium Scoring Interpretation: Different methods to categorize the overall amount of coronary plaque. Overall amount CAC SIS Visual of coronary plaque P1 Mild -100 <2 1-2 vessels with mild amount of plaque P2 Moderate 101-300 3-4 1-2 vessels with moderate amount, 3 vessels with mild amount of plaque P3 Severe 301-999 5-7 3 vessels with moderate amount, 1 vessel with severe amount of plaque P4 Extensive >1000 >8 2-3 vessels with severe amount of plaque Conclusion: No atherosclerotic plaquing
== END | disposition home or self-care (01) ==
PROVIDERS: PCP Family Medicine; Visit Provider Family Medicine
DX: E83.119 Hemochromatosis, unspecified (principal); I10 Essential (primary) hypertension; Z82.49 Family history of ischemic heart disease and other diseases of the circulatory system
CPT/HCPCS: 75571; 76380

== ENCOUNTER → 2024-11-15 | Outpatient (CLI) | payer OTHER, SELFPAY ==
--- NOTE | 2024-11-15 13:05 | BI_ITS ---
EXAM: SCRN MAMM (CAD)W/ALLEN BILAT DATE: 11/15/2024 CLINICAL HISTORY: F, Age 49 y/o , SCREENING Grandmother with breast cancer. Aunt with breast cancer. TECHNIQUE: Procedure Code: [id number] Modality: MG Procedure: SCRN MAMM (CAD)W/ALLEN BILAT COMPARISON: Prior exam(s) dated September 23, 2023.. FINDINGS: TISSUE DENSITY: The breasts are heterogeneously dense, which may obscure small masses. Bilateral Breast Mammographic Findings: No significant masses, calcifications or other abnormalities are identified. Stable small benign-appearing bilateral axillary lymph nodes. No suspicious masses, areas of developing architectural distortion, or suspicious calcifications. There has been no significant interval change. BI/SCRN MAMM (CAD)W/ALLEN BILAT IMPRESSION: Stable bilateral screening mammogram. OVERALL FINAL ASSESSMENT BI-RADS 2: BENIGN RECOMMENDATION: Routine annual follow-up in 1 Year A letter with findings and recommendations will be mailed to the patient. Reading Location: [place] [id number]
== END | disposition home or self-care (01) ==
LOC: OPBI 13:03
PROVIDERS: PCP Family Medicine; Referring Provider Nurse Practitioner Family; Visit Provider Nurse Practitioner Family
DX: Z12.31 Encounter for screening mammogram for malignant neoplasm of breast (principal); Z80.3 Family history of malignant neoplasm of breast
CPT/HCPCS: 77063; 77067